=== PATIENT | female | born 1980 | race African-American/Black ===

== ENCOUNTER 2016-12-07 07:26 | Emergency (ER) | payer OTHER ==
[2016-12-07 07:46] VITALS: BP 124/83
--- NOTE | 2016-12-07 08:31 | UC ---
kelechi Ramsay Timothy, scribed for Mayra Noble MD on 12/07/16 at 0810 . FLU HPI - HPI Summary HPI Summary: Rodney Rodrigues is a 36 yo female presenting to [facility] with 7/10 burning sore throat, N/V/D, lightheadedness, SOB, subjective fever, and fatigue since 12/05/16 morning, lessening throughout the day, but worsening again 12/06 morning and again today. She states she also had onset of 6/10 myalgia 12/06/16. She states she also noticed "blisters on the back of her throat". Painful swallowing. No drooling. Pt did eat some breakfast. No analgesia today. + po today. None productive cough. Pt's daughter also a pt with a sore throat today. Rx to her for fibromyalgia. Her MHx includes discoid lupus of the scalp, migraine, sleep apnea, DM, fibromyalgia, bipolar disorder, depression, anxiety, tobacco use. Pt medication list reviewed this visit. - History of Current Complaint Stated Complaint: SORE THROAT VOMITING DIARRHEA Time Seen by Provider: 12/07/16 08:18 Hx Obtained From: Patient Hx Last Menstrual Period: 11/23/16 Onset/Duration: Sudden Onset, Lasting Days, Still Present Severity Currently: Moderate Severity Initially: Moderate Pain Intensity: 7 Pain Scale Used: 0-10 Numeric Associated Signs & Symptoms: Positive: Myalgia, Sore Throat, Vomiting, Diarrhea. Negative: Fever - Allergy/Home Medications Allergies/Adverse Reactions: Allergies Allergy/AdvReac Type Severity Reaction Status Date / Time No Known Allergies Allergy Verified 12/07/16 07:46 PMH/Surg Hx/FS Hx/Imm Hx Previously Healthy: No Neurological History: Migraine, Other - fibromyalgia Other Neurological History: fibromyalgia Psychological History: Anxiety, Depression, Bipolar Disorder - Surgical History Surgical History: Yes Surgery Procedure, Year, and Place: BREAST REDUCTION 2002, [facility]. GASTRIC BYPASS 2004, ". C SECTION 2011, [place]. C SECTION 2013 [facility] [place]. tonsilectomy. carpal tunnel surgery - Family History Known Family History: Positive: Hypertension, Diabetes - Social History Alcohol Use: Occasionally Alcohol Amount: FEW DRINKS/YEAR Substance Use Type: None Smoking Status (MU): Light Every Day Tobacco Smoker Type: Cigarettes Amount Used/How Often: 6-7 cig/day Have You Smoked in the Last Year: Yes Household Exposure Type: Cigarettes - Immunization History Most Recent Influenza Vaccination: decl Most Recent Tetanus Shot: 2014 Most Recent Pneumonia Vaccination: unkn Review of Systems Constitutional: Fever - subjective, Fatigue Skin: Negative Eyes: Negative ENT: Sore Throat, Other - congestion Respiratory: Shortness Of Breath Cardiovascular: Palpitations Gastrointestinal: Vomiting, Diarrhea Genitourinary: Negative Motor: Negative Neurovascular: Negative Musculoskeletal: Myalgia Neurological: Other - lightheadedness Psychological: Negative All Other Systems Reviewed And Are Negative: Yes Physical Exam Triage Information Reviewed: Yes Appearance: Well-Appearing, No Pain Distress, Well-Nourished Vital Signs: Initial Vital Signs Temp 97.6 F 12/07/16 07:32 Pulse 94 12/07/16 07:32 Resp 16 12/07/16 07:32 BP 124/83 12/07/16 07:32 Pulse Ox 100 12/07/16 07:32 Vital Signs Reviewed: Yes Eye Exam: Normal ENT: Positive: Hearing grossly normal, Pharyngeal erythema, Nasal congestion - turbinates inflammed, + PND, + diffuse erythema No exudate, no erythema. Negative: Pharynx normal, Nasal drainage, TM bulging, TM dull, Tonsillar exudate , Trismus Dental Exam: Normal Neck exam: Normal Neck: Positive: Supple, Nontender, No Lymphadenopathy. Negative: Nuchal Rigidity Respiratory Exam: Normal Respiratory: Positive: Chest non-tender, Lungs clear, Normal breath sounds, No respiratory distress Cardiovascular Exam: Normal Cardiovascular: Positive: RRR, No Murmur, Pulses Normal Abdominal Exam: Normal Abdomen Description: Positive: Nontender, No Organomegaly, Soft Bowel Sounds: Positive: Present Musculoskeletal Exam: Normal Musculoskeletal: Positive: Strength Intact Neurological Exam: Normal Neurological: Positive: Alert Psychological Exam: Normal Skin Exam: Normal Diagnostics - EKG Cardiac Rate: NL - 0747: NSR @ 85 BPM, no ST-T wave changes Re-Evaluation - Re-Evaluation First Eval Re-Evaluation Time: 08:29 Change: Unchanged Comment: Discussed lab results with Pt, as well as course of Tx. Flu Course/Dx - Course Course Of Treatment: Rodney Rodrigues is a 36 yo female presenting to [facility] with 7/10 burning sore throat, N/V/D, lightheadedness, SOB, subjective fever, and fatigue since 12/05/16, mylagia since 12/06/16. Pt well appearing with non concerning exam. Pt was counseled that she needed to stay hydrated, and might benefit from cold items with water such as popsicles or jello. Her Group A Rapid Strep test was positive. After clinical examination and review of her lab work, she will be discharged home with appropriate instructions and prescriptions. secretion precautions discussed - Differential Dx/Diagnosis Differential Diagnosis/HQI/PQRI: Other - strep throat Provider Diagnoses: strep throat Discharge - Discharge Plan Condition: Stable Disposition: HOME Prescriptions: Amoxicillin (*) [Amoxicillin 875 MG (*)] 875 mg PO BID #20 tab Patient Education Materials: Strep Throat (ED) Forms: *Work Release Referrals: Sara Munguia MD [Primary Care Provider] - 2 Days Additional Instructions: - Stay well hydrated. Drink plenty of non-alcoholic, non-caffinated beverages. - Gargle with warm, salt water 2-3 times a day - Cold beverages may be soothing to your throat - popsicles, apple sauce, jello - After you have been on antibiotics for 2 days - change your toothbrush and your pillowcase. These infections are spread by secretions - do NOT share eating or drinking utensils - clean items you share with other people such as cell phones, computer mouse, TV remote, computer tablets, etc - Alternate ibuprofen (Advil, Motrin) 600mg and Tylenol every 3 hours for pain or fever. Take with food. Do NOT take for more than 4-5 days. Please follow up with your primary care physician regarding your visit to urgent care today. Jello and/or popsicles may help to soothe your throat while still maintaining hydration. Return to urgent care or the emergency department with any new or recurring symptoms. The documentation as recorded by the kelechi fiore Timothy accurately reflects the service I personally performed and the decisions made by , Mayra Noble MD.
== END 2016-12-07 08:45 | disposition home or self-care (01) ==
LOC: UCEAST 07:26
DX: J02.0 Streptococcal pharyngitis (principal); F17.210 Nicotine dependence, cigarettes, uncomplicated
CPT/HCPCS: 87651; 93005; 99211; G0463

== ENCOUNTER 2017-02-18 16:51 | Emergency (ER) | payer OTHER ==
[2017-02-18 16:59] VITALS: BP 133/91
--- NOTE | 2017-02-18 18:36 | UC ---
Vanessa Ramsay Thomas, scribed for Alex Luke MD on 02/18/17 at 1722 . Dental HPI - HPI Summary HPI Summary: The pt is a 36 y/o F presenting to E c/o pain to the tip of her tongue that began two weeks ago. The pain is described as burning and is rated 4/10. The pain is aggravated by spicy and acidic food and the pain is alleviated by nothing. She also describes intermittent pus bubbles on her tongue. The patient has treated the pain with nothing prior to arrival. She saw her PCP for this complaint 10 days ago, and the workup was negative. Pt additionally c/o swelling to the tip of her tongue, abd pain characterized as bloatedness, and diarrhea (dark brown). Pt denies epigastric abd pain. She has treated her abd pain with Pepto Bismol prior to arrival. PMHx: fibromyalgia and bipolar disorder. PSHx: gastric bypass, , and tonsillectomy. SHx: smoker, rare alcohol use, and no illicit drug use. FHx: DM. She had Strep throat 6 weeks ago and she reports that she finished. - History of Current Complaint Chief Complaint: UCDentalProblem Stated Complaint: MOUTH COMPLAINT Time Seen by Provider: 02/18/17 17:12 Hx Obtained From: Patient, Family/Slip Cover Sewer - son and daughter in room Hx Last Menstrual Period: one month ago Onset/Duration: Lasting Weeks - 2, Still Present Pain Intensity: 4 Pain Scale Used: 0-10 Numeric Aggravating: Other - acidic and spicy food - Allergies/Home Medications Allergies/Adverse Reactions: Allergies Allergy/AdvReac Type Severity Reaction Status Date / Time No Known Allergies Allergy Verified 02/18/17 16:59 PMH/Surg Hx/FS Hx/Imm Hx Previously Healthy: No - fibromyalgia, bipolar disorder - Surgical History Surgical History: Yes Surgery Procedure, Year, and Place: BREAST REDUCTION 2002, [facility]. GASTRIC BYPASS 2003, ". C SECTION 2011, [place]. C SECTION [place] [facility] [place]. carpal tunnel surgery - Family History Known Family History: Positive: Hypertension, Diabetes - Social History Alcohol Use: Rare Alcohol Amount: FEW DRINKS/YEAR Substance Use Type: Prescribed Smoking Status (MU): Smoker, Current Status Unknown Type: Cigarettes Amount Used/How Often: 6-7 cig/day Have You Smoked in the Last Year: Yes Household Exposure Type: Cigarettes - Immunization History Most Recent Influenza Vaccination: decl Most Recent Tetanus Shot: 2014 Most Recent Pneumonia Vaccination: unkn Review of Systems Constitutional: Negative Skin: Negative Eyes: Negative ENT: Other - TONGUE PAIN Respiratory: Negative Cardiovascular: Negative Gastrointestinal: Other - DIFFUSE ABDOMINAL DISCOMFORT Genitourinary: Negative Motor: Negative Neurovascular: Negative Musculoskeletal: Negative Neurological: Negative Psychological: Negative All Other Systems Reviewed And Are Negative: Yes Physical Exam Triage Information Reviewed: Yes Vital Signs: Initial Vital Signs Temp 98.6 F 02/18/17 16:56 Pulse 93 02/18/17 16:56 Resp 18 02/18/17 16:56 BP 133/91 02/18/17 16:56 Pulse Ox 100 02/18/17 16:56 Vital Signs Reviewed: Yes - Additional Comments General: well-appearing, no pain distress Skin: warm, color reflects adequate perfusion, dry Head: normal Eyes: EOMI, MONICA ENT: normal Neck: supple, nontender Respiratory: CTA, breath sounds present Cardiovascular: RRR Abdomen: soft, nontender Bowel: present Musculoskeletal: normal, strength/ROM intact Neurological: normal, sensory/motor intact, A&O x3 Psychological: affect/mood appropriate Dental Complaint Course/Dx - Course Course Of Treatment: NO LESIONS NOTED IN THE MOUTH. PATIENT WONDERS IF SHE HAS THRUSH. POSSIBLE CAUSE OF MOUTH AND ABDOMINAL DISCOMFORT IS GERD. WILL TREAT FOR GERD AND THRUSH AND PATIENT WILL F/U WITH PMD AND POSSIBLE GI SHE HAD A GASTRIC BYPASS 10+ YEARS AGO. - Differential Dx/Diagnosis Provider Diagnoses: GENERALIZED, DIFFUSE ABDOMINAL DISCOMFORT, TONGUE PAIN. Discharge - Discharge Plan Condition: Stable Disposition: HOME Prescriptions: Magic Mouth Was-CAN/MAAL/LIDO* 5 ml SWISH SPIT QID PRN #140 ml PRN Reason: Pain Nystatin SUSPENSION* 500,000 units .SEE ORDER QID #140 ml Omeprazole CAP* [Prilosec CAP* 20 MG] 20 mg PO BID #30 cap. Patient Education Materials: Abdominal Pain (ED) Referrals: Sara Munguia MD [Primary Care Provider] - Additional Instructions: FOLLOW UP WITH YOUR DOCTOR FOR YOUR MOUTH AND ABDOMINAL DISCOMFORT. RETURN TO THE EMERGENCY DEPARTMENT FOR ANY WORSENING OF YOUR CONDITION; PAIN, FEVER, YOU FEEL ILL OR QUESTIONS OR CONCERNS. The documentation as recorded by the Vanessa fiore Thomas accurately reflects the service I personally performed and the decisions made by me, Alex Luke MD.
== END 2017-02-18 17:39 | disposition home or self-care (01) ==
LOC: UCEAST 16:51
DX: K14.6 Glossodynia (principal); R10.84 Generalized abdominal pain; M79.7 Fibromyalgia; F31.9 Bipolar disorder, unspecified; Z98.84 Bariatric surgery status; Z72.0 Tobacco use
CPT/HCPCS: 99212; G0463

== ENCOUNTER 2017-02-26 12:35 | Emergency (ER) | payer OTHER ==
[2017-02-26 12:50] VITALS: BP 129/83
--- NOTE | 2017-02-26 13:03 | UC ---
Ear Complaint HPI - HPI Summary HPI Summary: 36 Y/O female presents with C/O ear pain that woke her up from sleep last night. States pain was improved this morning but she did take a percocet and now is pain free. Denies fever, chills, congestion, cough or other upper respiratory symptoms. States is pain free at this time. - History of Current Complaint Chief Complaint: UCEar Stated Complaint: EAR PAIN Time Seen by Provider: 02/26/17 12:51 Hx Obtained From: Patient Hx Last Menstrual Period: end january 2017 ?: No Onset/Duration: Sudden Onset Severity Initially: Severe Severity Currently: None Pain Intensity: 0 Pain Scale Used: 0-10 Numeric Aggravating Factors: Nothing Alleviating Factors: Other (Noted In Comments) - Percocet Associated Signs/Symptoms: Negative: Discharge, Hearing Loss, Trauma to Ear, URI Symptoms - Allergies/Home Medications Allergies/Adverse Reactions: Allergies Allergy/AdvReac Type Severity Reaction Status Date / Time No Known Allergies Allergy Verified 02/18/17 16:59 PMH/Surg Hx/FS Hx/Imm Hx Previously Healthy: Yes - Surgical History Surgical History: Yes Surgery Procedure, Year, and Place: BREAST REDUCTION 2002, [facility]. GASTRIC BYPASS 2003, ". C SECTION 2011, [place]. C SECTION 2013 [facility]. tonsilectomy. carpal tunnel surgery - Family History Known Family History: Positive: Hypertension, Diabetes - Social History Alcohol Use: Occasionally Alcohol Amount: FEW DRINKS/YEAR Substance Use Type: None Smoking Status (MU): Former Smoker Type: Cigarettes Amount Used/How Often: 6-7 cig/day Have You Smoked in the Last Year: Yes Household Exposure Type: Cigarettes - Immunization History Most Recent Influenza Vaccination: decl Most Recent Tetanus Shot: 2013 Most Recent Pneumonia Vaccination: unkn Review of Systems Constitutional: Negative Skin: Negative Eyes: Negative ENT: Ear Ache Respiratory: Negative Cardiovascular: Negative Gastrointestinal: Negative Genitourinary: Negative Motor: Negative Neurovascular: Negative Musculoskeletal: Negative Neurological: Negative Psychological: Negative All Other Systems Reviewed And Are Negative: Yes Physical Exam Triage Information Reviewed: Yes Appearance: Well-Appearing Vital Signs: Initial Vital Signs Temp 98.3 F 02/26/17 12:46 Pulse 94 02/26/17 12:46 Resp 18 02/26/17 12:46 BP 129/83 02/26/17 12:46 Pulse Ox 99 02/26/17 12:46 Vital Signs Reviewed: Yes Eye Exam: Normal Eyes: Positive: Conjunctiva Clear ENT Exam: Normal ENT: Positive: Normal ENT inspection Neck exam: Normal Neck: Positive: Supple Respiratory Exam: Normal Respiratory: Positive: Lungs clear Cardiovascular Exam: Normal Cardiovascular: Positive: RRR Abdominal Exam: Normal Bowel Sounds: Positive: Present Musculoskeletal Exam: Normal Neurological Exam: Normal Psychological Exam: Normal Skin Exam: Normal Ear Complaint Course/Dx - Differential Dx/Diagnosis Differential Diagnosis/HQI/PQRI: Cerumen Impaction, Otitis Media Provider Diagnoses: Ear pain Discharge - Discharge Plan Condition: Stable Disposition: HOME Patient Education Materials: Earache (ED) Additional Instructions: Return to urgent care for return of ear pain that does not resolve with OTC medication or if you experience fever or chills with ear pain. May take decongestant if symptoms of cold (upper respiratory infection) return.
== END 2017-02-26 13:25 | disposition home or self-care (01) ==
LOC: UCEAST 12:35
DX: H92.09 Otalgia, unspecified ear (principal); Z87.891 Personal history of nicotine dependence; Z98.84 Bariatric surgery status
CPT/HCPCS: 99211; G0463

== ENCOUNTER 2017-04-06 09:56 | Emergency (ER) | payer OTHER ==
[2017-04-06] MEDS ORDERED: Ciprofloxacin TAB* 500 MG PO ONE (10:56)
[2017-04-06] MEDS ORDERED: metroNIDAZOLE TAB* 250 MG PO ONE (10:56)
[2017-04-06 11:11] LABS: Hematocrit 37 % (35-47); Hemoglobin 12.5 g/dl (12.0-16.0); Mean Corpuscular HGB Conc 34 g/dl (31-36); Mean Corpuscular Hemoglobin 33 pg (27-31); Mean Corpuscular Volume 98 fL (80-97); Mean Platelet Volume 7 um3 (7.4-10.4); Red Blood Count 3.75 10^6/ul (4.0-5.4); Red Cell Distribution Width 12 % (10.5-15); White Blood Count 3.8 10^3/ul (3.5-10.8)
[2017-04-06 11:29] LABS: ALT 86 U/L (7-52); Albumin 3.4 g/dL (3.2-5.2); Alkaline Phosphatase 116 U/L (34-104); BUN/Creatinine Ratio 21.8 (8-20); Blood Urea Nitrogen 12 mg/dL (6-24); C Reactive Protein < 1.00 mg/L (< 5.00); CO2 Carbon Dioxide 25 mmol/L (22-32); Calcium 8.9 mg/dL (8.6-10.3); Chloride 102 mmol/L (101-111); EGFR African American 159.1 (>60); EGFR Non-African American 123.7 (>60); Globulin 3.2 g/dL (2-4); Glucose 88 mg/dL (70-100); Lipase 43 U/L (11.0-82.0); Sodium 136 mmol/L (133-145); Total Protein 6.6 g/dL (6.4-8.9)
[2017-04-06 12:29] LABS: AST 294 U/L (13-39); Anion Gap 9 mmol/L (2-11); Potassium 3.9 mmol/L (3.5-5.0)
[2017-04-06 12:41] LABS: Urine Bilirubin Negative (Negative); Urine Glucose Negative (Negative); Urine Nitrite Negative (Negative)
[2017-04-06 13:50] VITALS: BP 143/72
--- NOTE | 2017-04-07 08:03 | PN ---
Progress Note - Progress Note Date of Service: 04/06/17 Note: Stool culture sent Positive for C. Diff Patient placed on Cipro and Flagyl prior to discharge This treatment is appropriate for this organism Patient called to make aware to begin contact precautions, etc. She has a follow up today with her PCP at 3pm. Nothing further at this time. Licha Jackman PA-C
--- NOTE | 2017-04-08 12:11 | ED ---
Willa Ramsay Nilda, scribed for Zane Shirley MD on 04/06/17 at 1058 . GI/ HPI - HPI Summary HPI Summary: This patient is a 36 year old F presenting to [facility] accompanied by sister with a chief complaint of bloody diarrhea (bright red) since last night. The patient rates the pain 0/10 in severity. Symptoms aggravated and alleviated by nothing. Patient reports abdominal pain and anal pain. Patient denies vomiting, fever, chills, dizziness, lightheadedness, recent travel, recent undercooked foods, and recent antibiotics. PSHx gastric bypass. PMHx includes fibromyalgia, bipolar disorder, and lupus (scalp). - History of Current Complaint Chief Complaint: EDAbdPain Time Seen by Provider: 04/06/17 10:37 Stated Complaint: BLOOD CLOTS IN STOOL Hx Obtained From: Patient Hx Last Menstrual Period: end january 2017 Onset/Duration: Started Days Ago Timing: Constant Severity: Moderate Current Severity: None Pain Intensity: 0 Location of Pain: Diffuse Associated Signs and Symptoms: Positive: Blood w/Stool, Other: - abdominal pain and anal pain. Patient denies vomiting, fever, chills, dizziness, lightheadedness, recent travel, recent undercooked foods, and recent antibiotics. Aggravating Factor(s): Nothing Alleviating Factor(s): Nothing - Allergy/Home Medications Allergies/Adverse Reactions: Allergies Allergy/AdvReac Type Severity Reaction Status Date / Time No Known Allergies Allergy Verified 04/06/17 10:29 PMH/Surg Hx/FS Hx/Imm Hx Endocrine/Hematology History: Reports: Hx Diabetes Denies: Hx Thyroid Disease Cardiovascular History: Denies: Hx Hypertension, Hx Pacemaker/ICD Respiratory History: Reports: Hx Sleep Apnea - IN PAST, Musculoskeletal History: Reports: Hx Fibromyalgia Sensory History: Reports: Hx Contacts or Glasses - GLASSES Denies: Hx Hearing Aid Opthamlomology History: Reports: Hx Contacts or Glasses - GLASSES Neurological History: Reports: Hx Migraine - FEWxMONTH, USES OTC MEDS Psychiatric History: Reports: Hx Anxiety, Hx Depression - ON MED, Hx Bipolar Disorder - manages with limotrigine, Other Psychiatric Issues/Disorders Denies: Hx Panic Disorder - Surgical History Surgery Procedure, Year, and Place: BREAST REDUCTION 2002, [facility]. GASTRIC BYPASS 2003, ". C SECTION 2011, [place]. C SECTION [place] [facility] [place]. carpal tunnel surgery Hx Anesthesia Reactions: No Infectious Disease History: Yes Infectious Disease History: Denies: Hx Clostridium Difficile, Hx Hepatitis, Hx Human Immunodeficiency Virus (HIV), Hx of Known/Suspected MRSA, Hx Shingles, Hx Tuberculosis, Hx Known/ Suspected VRE, Hx Known/Suspected VRSA, History Other Infectious Disease, Traveled Outside the [place] in Last 30 Days - Family History Known Family History: Positive: Hypertension, Diabetes - Social History Alcohol Use: Weekly Alcohol Amount: 2 glasses of wine few days a week Substance Use Type: Reports: None Smoking Status (MU): Former Smoker Type: Cigarettes Amount Used/How Often: 6-7 cig/day Have You Smoked in the Last Year: Yes Review of Systems Negative: Fever, Chills Negative: Sore Throat Positive: Abdominal Pain, Diarrhea - bloody. Negative: Vomiting, Nausea Negative: dysuria, hematuria Negative: Myalgia, Edema Negative: Rash Neurological: Other - negative dizziness and lightheadedness All Other Systems Reviewed And Are Negative: Yes Physical Exam - Summary Physical Exam Summary: Constitutional: Well-developed, Well-nourished, Alert. (-) Distressed Skin: Warm, Dry HENT: Normocephalic; Atraumatic Eyes: Conjunctiva normal Neck: Musculoskeletal ROM normal neck. (-) JVD, (-) Stridor, (-) Tracheal deviation Cardio: Rhythm regular, rate normal, Heart sounds normal; Intact distal pulses; The pedal pulses are 2+ and symmetric. Radial pulses are 2+ and symmetric. (-) Murmur Pulmonary/Chest wall: Effort normal. (-) Respiratory distress, (-) Wheezes, (-) Rales Abd: Soft, Mild RLQ and LLQ tenderness, (-) Distension, (-) Guarding, (-) Rebound Musculoskeletal: (-) Edema Lymph: (-) Cervical adenopathy Neuro: Alert, Oriented x3 Psych: Mood and affect Normal Triage Information Reviewed: Yes Vital Signs On Initial Exam: Initial Vitals Temp Pulse Resp BP Pulse Ox 98.3 F 104 20 160/71 100 04/06/17 10:00 04/06/17 10:00 04/06/17 10:00 04/06/17 10:04/06/17 10:00 Vital Signs Reviewed: Yes Diagnostics - Vital Signs Vital Signs Temp Pulse Resp BP Pulse Ox 04/06/17 10:30 96 132/86 99 04/06/17 10:29 99 99 04/06/17 10:26 124/85 04/06/17 10:00 98.3 F 104 20 160/71 100 - Laboratory Result Diagrams: 04/06/17 10:55 04/06/17 10:55 Lab Statement: Any lab studies that have been ordered have been reviewed, and results considered in the medical decision making process. GIGU Course/Dx - Course Course Of Treatment: This patient is a 36 year old F presenting to [facility] accompanied by sister with a chief complaint of bloody diarrhea (bright red) since last night. The patient rates the pain 0/10 in severity. Symptoms aggravated and alleviated by nothing. Patient reports abdominal pain and anal pain. Patient denies vomiting, fever, chills, dizziness, lightheadedness. She also denies recent travel, recent undercooked foods, and recent antibiotics. PSHx gastric bypass. PMHx includes fibromyalgia, bipolar disorder, and lupus ( scalp). No evidence of significant blood loss. Stool cultures are pending. Patient will be discharged with a diagnosis of infectious diarrhea and prescriptions for Cipro, Metronidazole, and Zinc Oxide. Patient advised to follow up with PCP in 2-3 days. The patient is agreeable with this plan. - Diagnoses Provider Diagnoses: Infectious diarrhea Discharge - Discharge Plan Condition: Stable Disposition: HOME Prescriptions: Ciprofloxacin TAB* [Cipro 500 MG TAB*] 500 mg PO BID #20 tab Metronidazole [Flagyl 500 MG TAB] 500 mg PO TID #30 tab Zinc Oxide 16% PASTE* [Marii's Butt paste] 1 applic TOPICAL TID #1 tube Patient Education Materials: Acute Diarrhea (ED) Referrals: Sara Munguia MD [Primary Care Provider] - 3 Days Additional Instructions: RETURN TO THE EMERGENCY DEPARTMENT FOR CHANGING OR WORSENING SYMPTOMS. The documentation as recorded by the Willa fiore Nilda accurately reflects the service I personally performed and the decisions made by , Zane Shirley MD.
== END 2017-04-06 13:48 | disposition home or self-care (01) ==
LOC: ED 09:56
DX: A04.72 Enterocolitis due to Clostridium difficile, not specified as recurrent (principal); M79.7 Fibromyalgia; F31.9 Bipolar disorder, unspecified; M32.9 Systemic lupus erythematosus, unspecified
CPT/HCPCS: 36415; 80053; 81003; 83605; 83690; 85025; 86140; 87045; 87046; 87077; 87177; 87209; 87328; 87329; 87493; 87899; 99283; A9270-GY

== ENCOUNTER 2017-05-24 11:49 | Emergency (ER) | payer OTHER ==
[2017-05-24] MEDS ORDERED: NS 0.9% 1000 ML* 2,000 ML IV ONE (12:53)
[2017-05-24 13:48] LABS: Hematocrit 34 % (35-47); Hemoglobin 11.6 g/dl (12.0-16.0); Mean Corpuscular HGB Conc 34 g/dl (31-36); Mean Corpuscular Hemoglobin 33 pg (27-31); Mean Corpuscular Volume 97 fL (80-97); Mean Platelet Volume 7 um3 (7.4-10.4); Red Cell Distribution Width 13 % (10.5-15)
[2017-05-24 13:50] LABS: Comments Flag Yes
[2017-05-24 13:51] LABS: White Blood Count 3.4 10^3/ul (3.5-10.8)
[2017-05-24 14:01] LABS: ALT 174 U/L (7-52); AST 491 U/L (13-39); Albumin 3.1 g/dL (3.2-5.2); Alkaline Phosphatase 154 U/L (34-104); Anion Gap 9 mmol/L (2-11); BUN/Creatinine Ratio 21.4 (8-20); Blood Urea Nitrogen 12 mg/dL (6-24); C Reactive Protein < 1.00 mg/L (< 5.00); CO2 Carbon Dioxide 23 mmol/L (22-32); Calcium 8.5 mg/dL (8.6-10.3); Chloride 101 mmol/L (101-111); EGFR African American 155.8 (>60); EGFR Non-African American 121.2 (>60); Globulin 2.8 g/dL (2-4); Glucose 80 mg/dL (70-100); Lipase 28 U/L (11.0-82.0); Potassium 3.8 mmol/L (3.5-5.0); Sodium 133 mmol/L (133-145); Total Protein 5.9 g/dL (6.4-8.9)
[2017-05-24 14:28] LABS: Urine Bilirubin Negative (Negative); Urine Glucose Negative (Negative); Urine Nitrite Negative (Negative)
[2017-05-24 16:09] VITALS: BP 132/86
--- NOTE | 2017-05-25 22:11 | ED ---
Erinn Ramsay Alfonso, scribed for Zane Shirley MD on 05/24/17 at 1250 . Dizziness - HPI Summary HPI Summary: This patient is a 36 year old F BIBA to [facility] with a chief complaint of lightheaded dizziness since earlier today. The patient rates the pain 0/10 in severity. Symptoms aggravated and alleviated by nothing. Patient reports dehydration, abdominal cramping during BMs, diarrhea with mucous (2-3 days), fatigue, and near syncope (at [employer] earlier today). Patient denies vomiting, melena, and blood in the stools. She denies recent travels, eating raw foods, and sick contacts. She was seen at [facility] at 04/06/17 with a provider diagnosis of infectious diarrhea and a stool culture positive for C. Diff. - History Of Current Complaint Chief Complaint: EDDizziness Stated Complaint: DIZZY Time Seen by Provider: 05/24/17 12:42 Hx Obtained From: Patient Onset/Duration: Still Present Timing: Constant Character: Lightheaded Aggravating Factor(s): Nothing Alleviating Factor(s): Nothing Associated Signs And Symptoms: Positive: Other: - dehydration, abdominal cramping during BMs, diarrhea with mucous (2-3 days), fatigue, and near syncope (at [employer] earlier today). Patient denies vomiting, melena, and blood in the stools. She denies recent travels, eating raw foods, and sick contacts. - Allergies/Home Medications Allergies/Adverse Reactions: Allergies Allergy/AdvReac Type Severity Reaction Status Date / Time No Known Allergies Allergy Verified 04/06/17 10:29 PMH/Surg Hx/FS Hx/Imm Hx Endocrine/Hematology History: Reports: Hx Diabetes Denies: Hx Thyroid Disease Cardiovascular History: Denies: Hx Hypertension, Hx Pacemaker/ICD Respiratory History: Reports: Hx Sleep Apnea - IN PAST, Musculoskeletal History: Reports: Hx Fibromyalgia Sensory History: Reports: Hx Contacts or Glasses - GLASSES Denies: Hx Hearing Aid Opthamlomology History: Reports: Hx Contacts or Glasses - GLASSES EENT History: Denies: Hx Deafness Neurological History: Reports: Hx Migraine - FEWxMONTH, USES OTC MEDS Psychiatric History: Reports: Hx Anxiety, Hx Depression - ON MED, Hx Bipolar Disorder - manages with limotrigine, Other Psychiatric Issues/Disorders Denies: Hx Panic Disorder - Surgical History Surgery Procedure, Year, and Place: BREAST REDUCTION 2002, [facility]. GASTRIC BYPASS 2003, ". C SECTION 2012, [place]. C SECTION 2013 [facility] [place]. tonsilectomy. carpal tunnel surgery Hx Anesthesia Reactions: No Infectious Disease History: Yes Infectious Disease History: Reports: Hx Clostridium Difficile Denies: Hx Hepatitis, Hx Human Immunodeficiency Virus (HIV), Hx of Known/ Suspected MRSA, Hx Shingles, Hx Tuberculosis, Hx Known/Suspected VRE, Hx Known/ Suspected VRSA, History Other Infectious Disease, Traveled Outside the [place] in Last 30 Days - Family History Known Family History: Positive: Hypertension, Diabetes - Social History Alcohol Use: Weekly Alcohol Amount: 2 glasses of wine few days a week Hx Substance Use: No Substance Use Type: Reports: None Hx Tobacco Use: Yes Smoking Status (MU): Former Smoker Type: Cigarettes Amount Used/How Often: 6-7 cig/day Have You Smoked in the Last Year: Yes Review of Systems Positive: Fatigue, Other - dehydration. Negative: Fever, Chills Negative: Erythema Negative: Sore Throat Negative: Chest Pain Negative: Shortness Of Breath, Cough Positive: Abdominal Pain - cramping with BMs, Diarrhea, Other - Negative melena , blood in the stools. Negative: Vomiting, Nausea Negative: dysuria, hematuria Negative: Myalgia, Edema Negative: Rash Neurological: Other - lightheaded dizziness Positive: Syncope - near All Other Systems Reviewed And Are Negative: Yes Physical Exam - Summary Physical Exam Summary: Constitutional: Well-developed, Well-nourished, Alert. (-) Distressed Skin: Warm, Dry HENT: Normocephalic; Atraumatic Eyes: Conjunctiva normal Neck: Musculoskeletal ROM normal neck. (-) JVD, (-) Stridor, (-) Tracheal deviation Cardio: Rhythm regular, rate normal, Heart sounds normal; Intact distal pulses; The pedal pulses are 2+ and symmetric. Radial pulses are 2+ and symmetric. (-) Murmur Pulmonary/Chest wall: Effort normal. (-) Respiratory distress, (-) Wheezes, (-) Rales Abd: Soft, (-) Tenderness, (-) Distension, (-) Guarding, (-) Rebound Musculoskeletal: (-) Edema Lymph: (-) Cervical adenopathy Neuro: Alert, Oriented x3 Psych: Mood and affect Normal Triage Information Reviewed: Yes Vital Signs On Initial Exam: Initial Vitals Temp Pulse Resp BP Pulse Ox 98.4 F 105 16 105/71 99 05/24/17 11:51 05/24/17 11:51 05/24/17 11:51 05/24/17 11:51 05/24/17 11:51 Vital Signs Reviewed: Yes Diagnostics - Vital Signs Vital Signs Temp Pulse Resp BP Pulse Ox 05/24/17 11:51 98.4 F 105 16 105/71 99 - Laboratory Result Diagrams: 05/24/17 13:40 05/24/17 13:40 Lab Statement: Any lab studies that have been ordered have been reviewed, and results considered in the medical decision making process. - EKG 1426 Cardiac Rate: NL EKG Rhythm: Sinus Rhythm - 91 BPM EKG Interpretation: No STEMI Re-Evaluation - Re-Evaluation First Eval Re-Evaluation Time: 15:06 Comment: Still feels lightheaded. She is receiving IV fluids. She will produce a stool sample. Second Eval Re-Evaluation Time: 15:58 Change: Improved Comment: Better after IV fluids. Dizziness resolved. She is tolerating PO. Dizzy Course/Dx - Course Assessment/Plan: This patient is a 36 year old F BIBA to [facility] with a chief complaint of lightheaded dizziness since earlier today. The patient rates the pain 0/10 in severity. Symptoms aggravated and alleviated by nothing. Patient reports dehydration, abdominal cramping during BMs, diarrhea with mucous (2-3 days), fatigue, and near syncope (at [employer] earlier today). Patient denies vomiting, melena, and blood in the stools. She denies recent travels, eating raw foods, and sick contacts. She was seen at [facility] at 04/06/17 with a provider diagnosis of infectious diarrhea and a stool culture positive for C. Diff. An EKG reveals Sinus Rhythm. In the ED course the patient was given IV fluids. Patients symptoms improved in the ED course. Stool cultures pending. Patient will be discharged with follow up from PCP. The patient is agreeable with this plan. - Diagnoses Provider Diagnoses: Dehydration, Diarrhea Discharge - Discharge Plan Condition: Stable Disposition: HOME Patient Education Materials: Dehydration (ED), Acute Diarrhea (ED) Forms: *Work Release Referrals: Sara Munguia MD [Primary Care Provider] - 3 Days Additional Instructions: RETURN TO THE EMERGENCY DEPARTMENT FOR CHANGING OR WORSENING SYMPTOMS. The documentation as recorded by the Erinn fiore Alfonso accurately reflects the service I personally performed and the decisions made by me, Zane Shirley MD.
--- NOTE | 2017-05-26 09:06 | PN ---
Progress Note - Progress Note Date of Service: 05/24/17 Note: stool culture results are negative for shiga and c diff. no further action required at this time.
== END 2017-05-24 16:21 | disposition home or self-care (01) ==
LOC: ED 11:49
DX: E86.0 Dehydration (principal); R19.7 Diarrhea, unspecified; Z87.891 Personal history of nicotine dependence
CPT/HCPCS: 36415; 80053; 81003; 83605; 83690; 85025; 86140; 87045; 87046; 87077; 87493; 87899; 93005; 96360; 99284

== ENCOUNTER 2017-07-18 08:03 | Emergency (ER) | payer OTHER ==
[2017-07-18 08:10] VITALS: BP 153/92
--- OUTSIDE RECORDS SUMMARY | 2017-07-18 08:14 | XMS REPORT ---
:1980 External Reference #:[id number] Author Organization [facility] Address [address] [place] [address] Phone [phone] Care Team Providers Name Role Phone Sara Munguia M.D. 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 Primary Care Physician Unavailable Payers Type Date Identification Numbers Payment Provider Subscriber Medicaid Effective: Policy Number: [id number] [facility] Jemima Torres 2013 Ravi PayID: [id number] [address] [address] [place] [address] Problems Date Description Provider Status Onset: 07/23/2014 Bipolar disorder Sara Munguia M.D. Active Onset: 07/23/2014 Shoulder joint pain Sara Munguia M.D. Active Onset: 07/23/2014 Cutaneous lupus erythematosus Sara Munguia M.D. Active Onset: 08/27/2014 Primary fibromyalgia syndrome Sara Munguia M.D. Active Onset: 03/04/2016 Myofascial pain Sara Munguia M.D. Active Note: left shoulder/back Onset: 05/24/2017 Liver enzymes abnormal Sara Munguia M.D. Active Onset: 08/29/2014 Tobacco user Sara Munguia M.D. Resolved Resolved: 07/15/2015 Family History Date Family Member(s) Problem(s) Comments Father Diabetes Mellitus, II : (2005) Father due to Liver Disease cirrhosis; alcoholic Father Hypertension Father Hypercholesterolemia Father Alcoholism Mother Gastroesophageal Reflux Disease (GERD) Mother Bipolar Disorder Mother Arthritis First Sister Bipolar Disorder Social History Type Date Description Comments Education Highest level completed, Bachelor's Degree Occupation [employer] Cigarette Use Former Cigarette Smoker 1 Pack Daily ETOH Use Consumes 2 glasses of wine per day Smoking Patient is a former smoker Allergies, Adverse Reactions, Alerts Date Description Reaction Status Severity Comments 09/28/2016 Sertraline active panic attacks 07/23/2014 NKDA inactive Medications Medication Date Status Form Strength Qnty SIG Indications Ordering Provider Clobetasol 05/30/ Active Lotion 0.05% 118ml apply to Sara Reyes 2016 scalp twice , a day as M.D. needed Oxycodone HCL 05/24/ Active Tablets 5mg 120ta 1 tab by M25.512 Sara 2017 bs mouth q6 Blaine, hours as M.D. needed Metronidazole 06/22/ Hx Tablets 500mg 42tab 1 tab by Sara 2016 - s mouth three , 07/14/ times a day M.D. 2018 x 14 days Metronidazole 04/14/ Hx Tablets 500mg 12tab Take one by A04.72 Laine Lamas 2016 - s mouth 3 Babak, 04/21/ times per [employer] MANAGER 2016 day until gone Lamotrigine 11/09/ Hx Tablets 200mg 30tab 1 tab daily F31.9 Sarah 2016 - s [facility], 07/14/ Afnp-C 2017 Venlafaxine HCL 09/28/ Hx Caps ER 75mg 30cap take one F31.9 Sara ER 2017 - 24HR s capsule by Blaine, 11/09/ mouth at M.D. 2017 bedtime Doxycycline 08/12/ Hx Tablets 100mg 14tab 1 tab twice Z20.2 Sara Hyclate 2016 - s a day x 7 , 09/28/ days M.D. 2017 Physical 08/12/ Hx treatment M79.7 Sara Therapy 2017 - and Blaine, 09/28/ evaluation M.D. 2017 low back pain Nicotine Step 2 08/12/ Hx Patches 14mg/24HR 30uni 1 patch F17.210 Sara 2017 - 24HR ts daily, Blaine, 04/06/ remove prior M.D. 2016 patch and replace Sertraline HCL 08/12/ Hx Tablets 50mg 30tab 1 by mouth F31.9 Sara 2017 - s every day , 09/28/ M.D. 2017 Oxycodone-Aceta 07/01/ Hx Tablets 5-325mg 120ta 1 tab by M25.512 Sara minophen 2015 - bs mouth every , 05/24/ 6 hour as M.D. 2017 needed Lamotrigine 07/01/ Hx Tablets 200mg 30tab 1 tab daily F31.9 Sara 2016 - s Blaine, 09/28/ M.D. 2017 Physical 06/22/ Hx treatment M25.512 Sara Therapy 2015 - and Blaine, 06/24/ evaluation M.D. 2016 left shoulder pain Lamotrigine 03/04/ Hx Tablets 200mg 30tab 1 tab daily F31.9 Sara 2016 - s Blaine, 06/24/ M.D. 2016 Physical 11/03/ Hx treatment M25.512 Sara Therapy 2016 - and Blaine, 06/22/ evaluation M.D. 2016 low back pain and Left shoulder pain Bupropion HCL 11/03/ Hx Tablets 150mg 30tab 1 by mouth F31.9 Jil ER (XL) 2015 - ER 24HR s every day [facility] 2015 Lamotrigine 03/17/ Hx Tablets 100mg 30tab 1 tab by F31.9 Jil 2014 - s mouth every [facility], 03/04/ day MANAGER JAVA 2015 Chantix 02/13/ Hx Tablets 1mg 60tab take 1 Sara Continuing 2014 - tablet by Blaine, Month Tevin 07/15/ mouth twice M.D. 2016 a day Chantix 01/14/ Hx Tablets 0.5mg X 1tabs 1 starter F17.200 Sara Starting Month 2014 & pack for a BlaineTevin 08/13/ 1 mg X 42 month,then M.D. 2017 refill maintenance packs Bupropion HCL 08/29/ Hx Tablets 150mg 30tab 1 by mouth 305.1 Sara ER (XL) 2014 - ER 24HR s every day Blaine, 01/14/ M.D. 2014 296.80 Oxycodone-Acetaminophen 07/23/2014 Hx Tablets 5-325mg 120tabs 1 tab M25.512 Sara - by Blaine, 2016 mouth M.D. every 6 hour as needed Ibuprofen 07/23/2014 Hx Tablets 800mg 90tabs 1 by M25.512 Sara - mouth Blaine, 2016 q8 M.D. hours three times a day with food Lamotrigine 07/23/2014 Hx Tablets 100mg 30tabs 1 tab 296.80 Sara - by Blaine, 01/14/2015 mouth M.D. every day Metformin HCL ER Hx Tablets 750mg 90tabs 1 po qd Unknown - ER 24HR 07/24/2014 Clobetasol Propionate Hx Lotion 0.05% 118ml apply Sara - to , 2016 scalp M.D. twice a day as needed Implanon Hx Implant 68mg Unknown - 2016 Ciprofloxacin HCL Hx Tablets 500mg 1 by Unknown - mouth 04/14/2017 twice a day Metronidazole Hx Tablets 500mg 1 tab Unknown - by 04/21/2017 mouth tHREE Times a day Medications Administered in Office Medication Date Status Form Strength Qnty SIG Indications Ordering Provider TB Intradermal Administered Injection Sara Morataya 017 Jesus Munguia TB Intradermal Administered Injection Sara Morataya 016 Jesus Munguia Immunizations CPT Code Status Date Vaccine Lot # [id number] Given 03/17/2015 Influenza Vac, Quadrivalent, Slit Virus, Im [id number] Vital Signs Date Vital Result Comment 07/14/2017 BP Systolic 122 mmHg BP Diastolic 80 mmHg Heart Rate 84 /min Body Temperature 97.3 F Respiratory Rate 16 /min Height 63 inches 5'3" Weight 155.00 lb BMI (Body Mass Index) 27.5 kg/m2 06/21/2017 BP Systolic 120 mmHg BP Diastolic 80 mmHg Heart Rate 68 /min Body Temperature 98.0 F Respiratory Rate 18 /min Height 63 inches 5'3" Weight 157.00 lb BMI (Body Mass Index) 27.8 kg/m2 06/08/2017 BP Systolic 138 mmHg BP Diastolic 70 mmHg Heart Rate 90 /min Body Temperature 99.0 F Height 63 inches 5'3" Weight 157.00 lb BMI (Body Mass Index) 27.8 kg/m2 04/21/2017 BP Systolic 120 mmHg BP Diastolic 80 mmHg Heart Rate 80 /min Body Temperature 98.5 F Respiratory Rate 16 /min Height 63 inches 5'3" Weight 156.38 lb BMI (Body Mass Index) 27.7 kg/m2 04/14/2017 BP Systolic 124 mmHg BP Diastolic 76 mmHg Heart Rate 84 /min Body Temperature 97.9 F Respiratory Rate 16 /min Height 63 inches 5'3" Weight 156.38 lb BMI (Body Mass Index) 27.7 kg/m2 04/07/2017 BP Systolic 116 mmHg BP Diastolic 58 mmHg Heart Rate 90 /min Body Temperature 97.3 F Height 63 inches 5'3" Weight 156.38 lb BMI (Body Mass Index) 27.7 kg/m2 02/10/2017 BP Systolic 132 mmHg BP Diastolic 82 mmHg Heart Rate 92 /min Body Temperature 98.3 F Height 63 inches 5'3" Weight 154.00 lb BMI (Body Mass Index) 27.3 kg/m2 11/09/2016 BP Systolic 136 mmHg BP Diastolic 80 mmHg Heart Rate 88 /min Body Temperature 97.5 F Respiratory Rate 16 /min Height 63 inches 5'3" Weight 152.00 lb BMI (Body Mass Index) 26.9 kg/m2 09/28/2016 BP Systolic 140 mmHg BP Diastolic 84 mmHg Heart Rate 84 /min Body Temperature 97.3 F Respiratory Rate 16 /min Height 63 inches 5'3" Weight 148.00 lb BMI (Body Mass Index) 26.2 kg/m2 08/12/2016 BP Systolic 150 mmHg BP Diastolic 80 mmHg Heart Rate 104 /min Body Temperature 98.6 F Height 63 inches 5'3" Weight 149.50 lb BMI (Body Mass Index) 26.5 kg/m2 06/22/2016 BP Systolic 130 mmHg BP Diastolic 70 mmHg Heart Rate 84 /min Body Temperature 96.8 F Height 63 inches 5'3" Weight 150.00 lb BMI (Body Mass Index) 26.6 kg/m2 03/04/2016 BP Systolic 130 mmHg BP Diastolic 90 mmHg Heart Rate 84 /min Body Temperature 98.1 F Respiratory Rate 16 /min Height 63 inches 5'3" Weight 160.38 lb BMI (Body Mass Index) 28.4 kg/m2 11/04/2015 BP Systolic 122 mmHg BP Diastolic 68 mmHg Heart Rate 68 /min Body Temperature 97.7 F Respiratory Rate 16 /min Height 63 inches 5'3" Weight 162.50 lb BMI (Body Mass Index) 28.8 kg/m2 07/15/2015 BP Systolic 120 mmHg BP Diastolic 80 mmHg Heart Rate 80 /min Body Temperature 97.5 F Respiratory Rate 16 /min Height 63 inches 5'3" Weight 162.00 lb BMI (Body Mass Index) 28.7 kg/m2 03/17/2015 BP Systolic 124 mmHg BP Diastolic 80 mmHg Heart Rate 74 /min Body Temperature 98.0 F Respiratory Rate 20 /min Height 63 inches 5'3" Weight 160.00 lb BMI (Body Mass Index) 28.3 kg/m2 01/14/2015 BP Systolic 140 mmHg BP Diastolic 80 mmHg Heart Rate 88 /min Body Temperature 98.0 F Respiratory Rate 16 /min Height 63 inches 5'3" Weight 158.00 lb BMI (Body Mass Index) 28.0 kg/m2 08/29/2014 BP Systolic 126 mmHg BP Diastolic 88 mmHg Heart Rate 80 /min Body Temperature 97.4 F Respiratory Rate 16 /min Height 63 inches 5'3" Weight 152.00 lb BMI (Body Mass Index) 26.9 kg/m2 07/23/2014 BP Systolic 130 mmHg BP Diastolic 90 mmHg Heart Rate 88 /min Body Temperature 98.3 F Respiratory Rate 16 /min Height 63 inches 5'3" Weight 152.00 lb BMI (Body Mass Index) 26.9 kg/m2 Results Test Date Test Result H/L Range Note Comprehensive Metabolic Prof 06/21/2017 Sodium 135 mEq/L 134-149 Potassium 3.9 mEq/L 3.6-5.5 Chloride 103 mEq/L 94-112 Carbon Dioxide 24 mEq/L 21-32 Glucose 89 mg/dL 70-105 BUN 11 mg/dL 6-26 Creatinine 0.6 mg/dL 0.6-1.4 BUN/Creat Ratio 18.3 CALC 8.0-36.0 Calcium 8.9 mg/dL 8.6-10.2 Total Protein 5.9 g/dL Low 6.4-8.3 1 Albumin 3.4 g/dL Low 3.8-5.5 2 Globulin 2.5 g/dL 2.0-4.8 A/G Ratio 1.4 CALC 0.6-2.3 Alk. Phosphatase 147 U/L High 30-110 Alt (SGPT) 237 U/L High 7-35 Ast (Sgot) 443 U/L High 5-34 Total Bilirubin 0.9 mg/dL 0.2-1.3 GFR Non- >60 ml/min/1.73m^ >=60 GFR >60 ml/min/1.73m^ >=60 Laboratory test finding 06/21/2017 TSH 1.10 mIU/L 0.50-6.00 Free T4 0.76 ng/dL 0.75-1.54 CBC Electronic (Fma) 06/21/2017 WBC 3.9 3.6-9.6 RBC 3.34 Low 3.90-5.70 Hemoglobin (Fma/CMC/CTX) 11.5 g/dL Low 12.1 - 17.2 Hematocrit (Fma/CMC/CTX) 32.8 % Low 36.1 - 50.3 Platelets 314 10^3/ul 150-400 Lymph% 38.8 % 17.0-48.0 Mixed% 7.1 Neutrophils % 54.1 Mean Corpuscular Vol 98 High 82.2-97.4 Mean Corpuscular Hemoglobin 34.4 High 27.6-33.3 Mean Corpuscular Hemo Concen 34.9 32.0-36.0 RDW 14.1 High 11.6-13.7 Mean Platelet Volume 6.8 5.5-11.0 Laboratory test finding 06/21/2017 C Difficile PCR SEE RESULT BELOW 3 Stool Culture <pending> Comprehensive Metabolic Prof 06/08/2017 Sodium 141 mEq/L 134-149 Potassium 3.9 mEq/L 3.6-5.5 Chloride 110 mEq/L 94-112 Carbon Dioxide 25 mEq/L 21-32 Glucose 88 mg/dL 70-105 BUN 11 mg/dL 6-26 Creatinine 0.6 mg/dL 0.6-1.4 BUN/Creat Ratio 18.3 CALC 8.0-36.0 Calcium 8.7 mg/dL 8.6-10.2 Total Protein 6.5 g/dL 6.4-8.3 Albumin 3.8 g/dL 3.8-5.5 Globulin 2.7 g/dL 2.0-4.8 A/G Ratio 1.4 CALC 0.6-2.3 Alk. Phosphatase 171 U/L High 30-110 4 Alt (SGPT) 90 U/L High 7-35 5 Ast (Sgot) 132 U/L High 5-34 6 Total Bilirubin 1.0 mg/dL 0.2-1.3 GFR Non- >60 ml/min/1.73m^ >=60 GFR >60 ml/min/1.73m^ >=60 Ebv Acute Infection 06/08/2017 Ebv Ab Vca, IgM <36.0 U/mL 0.0-35.9 7 , 8 Antibodies Profile Ebv Early Antigen Ab, IgG 13.2 U/mL High 0.0-8.9 7, 9 Ebv Ab Vca, IgG >600.0 U/mL High 0.0-17.9 7, 10 Ebv Nuclear Antigen Ab, IgG 470.0 U/mL High 0.0-17.9 7, 11 Interpretation: See Comment: 7, 12 Hepatitis Panel, Acute 06/08/2017 Hep A Ab, IgM Negative Negative 7 HBsAg Screen Negative Negative 7 Hep B Core Ab, IgM Negative Negative 7 Hep C Virus Ab <0.1 s/coratio 0.0-0.9 7, 13 CMV Igg/Igm 06/08/2017 Cytomegalovirus (CMV) Ab, >10.00 U/mL High 0.00- 0.59 7, 14 IgG Cytomegalovirus (CMV) Ab, IgM <30.0 AU/mL 0.0-29.9 7, 15 LD Isoenzymes 06/08/2017 LDH 196 IU/L 119-226 7 (LD) Fraction 1 28 % 17-32 7 (LD) Fraction 2 34 % 25-40 7 (LD) Fraction 3 18 % 17-27 7 (LD) Fraction 4 4 % Low 5-13 7 (LD) Fraction 5 16 % 4-20 7 Urine (Fma) 06/08/2017 SP Grav 1.010 Urine, (Fma/CMC/CTX) negative Laboratory test finding 05/24/2017 C Difficile PCR SEE RESULT BELOW 16 Urinalysis Profile 05/24/2017 Urine Color Yellow Urine Appearance Clear Urine Specific Cassel 1.011 1.010-1.030 Urine pH 6.0 5-9 Urine Urobilinogen Negative Negative Urine Ketones Negative Negative Urine Protein Negative Negative Urine Leukocytes Negative Negative Urine Blood Negative Negative Urine Nitrite Negative Negative Urine Bilirubin Negative Negative Urine Glucose Negative Negative CBC Auto Diff 05/24/2017 White Blood Count 3.4 10^3/uL Low 3.5-10.8 17 Red Blood Count 3.50 10^6/uL Low 4.0-5.4 Hemoglobin 11.6 g/dL Low 12.0-16.0 Hematocrit 34 % Low 35-47 Mean Corpuscular Volume 97 fL 80-97 Mean Corpuscular Hemoglobin 33 pg High 27-31 Mean Corpuscular HGB Conc 34 g/dL 31-36 Red Cell Distribution Width 13 % 10.5-15 Platelet Count 213 10^3/uL 150-450 Mean Platelet Volume 7 um3 Low 7.4-10.4 Abs Neutrophils 2.1 10^3/uL 1.5-7.7 Abs Lymphocytes 0.9 10^3/uL Low 1.0-4.8 Abs Monocytes 0.3 10^3/uL 0-0.8 Abs Eosinophils 0.1 10^3/uL 0-0.6 Abs Basophils 0 10^3/uL 0-0.2 Abs Nucleated RBC 0.01 10^3/uL Granulocyte % 62.9 % 38-83 Lymphocyte % 26.9 % 25-47 Monocyte % 7.6 % 1-9 Eosinophil % 1.6 % 0-6 Basophil % 1.0 % 0-2 Nucleated Red Blood Cells % 0.3 Comp Metabolic Panel 05/24/2017 Sodium 133 mmol/L 133-145 Potassium 3.8 mmol/L 3.5-5.0 Chloride 101 mmol/L 101-111 Co2 Carbon Dioxide 23 mmol/L 22-32 Anion Gap 9 mmol/L 2-11 Glucose 80 mg/dL 70-100 Blood Urea Nitrogen 12 mg/dL 6-24 Creatinine 0.56 mg/dL 0.51-0.95 BUN/Creatinine Ratio 21.4 High 8-20 Calcium 8.5 mg/dL Low 8.6-10.3 Total Protein 5.9 g/dL Low 6.4-8.9 Albumin 3.1 g/dL Low 3.2-5.2 Globulin 2.8 g/dL 2-4 Albumin/Globulin Ratio 1.1 1-3 Total Bilirubin 1.70 mg/dL High 0.2-1.0 Alkaline Phosphatase 154 U/L High 34-104 Alt 174 U/L High 7-52 Ast 491 U/L High 13-39 Egfr Non- 121.2 >60 Egfr 155.8 >60 18 Laboratory test finding 05/24/2017 Lipase 28 U/L 11.0-82.0 C Reactive Protein < 1.00 mg/L < 5.00 19 Lactic Acid 2.3 mmol/L High 0.5-2.0 20 Laboratory test finding 04/06/2017 Lipase 43 U/L 11.0-82.0 C Reactive Protein < 1.00 mg/L < 5.00 21 Comp Metabolic Panel 04/06/2017 Sodium 136 mmol/L 133-145 Chloride 102 mmol/L 101-111 Co2 Carbon Dioxide 25 mmol/L 22-32 Glucose 88 mg/dL 70-100 Blood Urea Nitrogen 12 mg/dL 6-24 Creatinine 0.55 mg/dL 0.51-0.95 BUN/Creatinine Ratio 21.8 High 8-20 Calcium 8.9 mg/dL 8.6-10.3 Total Protein 6.6 g/dL 6.4-8.9 Albumin 3.4 g/dL 3.2-5.2 Globulin 3.2 g/dL 2-4 Albumin/Globulin Ratio 1.1 1-3 Total Bilirubin 1.70 mg/dL High 0.2-1.0 Alkaline Phosphatase 116 U/L High 34-104 Alt 86 U/L High 7-52 Egfr Non- 123.7 >60 Egfr 159.1 >60 22 Potassium 3.9 mmol/L 3.5-5.0 Anion Gap 9 mmol/L 2-11 Ast 294 U/L High 13-39 Laboratory test finding 04/06/2017 Lactic Acid 1.7 mmol/L 0.5-2.0 23 CBC Auto Diff 04/06/2017 White Blood Count 3.8 10^3/uL 3.5-10.8 Red Blood Count 3.75 10^6/uL Low 4.0-5.4 Hemoglobin 12.5 g/dL 12.0-16.0 Hematocrit 37 % 35-47 Mean Corpuscular Volume 98 fL High 80-97 Mean Corpuscular Hemoglobin 33 pg High 27-31 Mean Corpuscular HGB Conc 34 g/dL 31-36 Red Cell Distribution Width 12 % 10.5-15 Platelet Count 245 10^3/uL 150-450 Mean Platelet Volume 7 um3 Low 7.4-10.4 Abs Neutrophils 2.5 10^3/uL 1.5-7.7 Abs Lymphocytes 1.0 10^3/uL 1.0-4.8 Abs Monocytes 0.3 10^3/uL 0-0.8 Abs Eosinophils 0.1 10^3/uL 0-0.6 Abs Basophils 0 10^3/uL 0-0.2 Abs Nucleated RBC 0 10^3/uL Granulocyte % 64.5 % 38-83 Lymphocyte % 25.9 % 25-47 Monocyte % 7.3 % 1-9 Eosinophil % 1.7 % 0-6 Basophil % 0.6 % 0-2 Nucleated Red Blood Cells % 0 Urinalysis Profile 04/06/2017 Urine Color Straw Urine Appearance Clear Urine Specific Cassel 1.005 Low 1.010-1.030 Urine pH 7.0 5-9 Urine Urobilinogen Negative Negative Urine Ketones Negative Negative Urine Protein Negative Negative Urine Leukocytes Negative Negative Urine Blood Negative Negative Urine Nitrite Negative Negative Urine Bilirubin Negative Negative Urine Glucose Negative Negative Laboratory test finding 04/06/2017 C Difficile PCR SEE RESULT BELOW 24 Stool Culture SEE RESULT BELOW 25 Ecto-Parasite Identification <pending> Parasitic Examination See Comment 26 Toxassure Select 13 (MW) 02/10/2017 Report Summary FINAL 27 PDF . Laboratory test 02/10/2017 PDF [id number] SEE IMAGE finding Chlamydia/GC 08/13/2016 Chlamydia trachomatis, Negative Negative 28, 29 Amplification Janie Neisseria gonorrhoeae, Janie Negative Negative 28, 30 Laboratory test finding 06/25/2016 PDF [id number] SEE IMAGE Toxassure(R) Select 13 (MW) 06/25/2016 Report Summary FINAL 31 PDF . Complete Blood Count 06/25/2016 WBC 4.4 x10^3/UL 3.6-9.6 RBC 3.59 x10^6/UL Low 3.90-5.70 HGB 11.7 g/dL Low 12.1-17.2 HCT 34 % Low 36-50 MCV 95.0 fL 82.2-97.4 MCH 32.6 pg 27.6-33.3 MCHC 34.3 g/dL 33.0-35.5 RDW 13.4 % 11.6-13.7 PLT 297 x10^3/UL 150-400 MPV 6.7 fL Low 7.4-10.4 Gran # 2.5 x10^3/UL 1.5-7.2 Lymph# 1.6 x10^3/UL 0.7-4.9 [place]# 0.3 x10^3/UL 0.1-0.9 Gran % 54.6 % 42.2-75.2 Lymph % 38.2 % 20.5-51.1 [place]% 7.2 % 1.7-9.3 Lipid Profile 06/25/2016 Cholesterol 177 mg/dL 120-200 Triglycerides 79 mg/dL 30-200 HDL Cholesterol 102 mg/dL High 32 LDL (Calculated) 59 CALC 0-129 VLDL Cholesterol 16 mg/dL 0-50 HDL Risk Factor 1.7 CALC 0.0-4.4 Comprehensive Metabolic Prof 06/25/2016 Sodium 142 mEq/L 134-149 Potassium 4.3 mEq/L 3.6-5.5 Chloride 104 mEq/L 94-112 Carbon Dioxide 25 mEq/L 21-32 Glucose 77 mg/dL 70-105 BUN 14 mg/dL 6-26 Creatinine 0.7 mg/dL 0.6-1.4 BUN/Creat Ratio 20.0 CALC 8.0-36.0 Calcium 8.9 mg/dL 8.6-10.2 Total Protein 7.1 g/dL 6.4-8.3 Albumin 4.2 g/dL 3.8-5.5 Globulin 2.9 g/dL 2.0-4.8 A/G Ratio 1.4 CALC 0.6-2.3 Alk. Phosphatase 48 U/L 30-110 Alt (SGPT) 17 U/L 7-35 Ast (Sgot) 29 U/L 5-34 Total Bilirubin 0.6 mg/dL 0.2-1.3 GFR Non- >60 ml/min/1.73m^ >=60 GFR >60 ml/min/1.73m^ >=60 Laboratory test finding 07/15/2015 PDF [id number] SEE IMAGE Pap HPV High Risk 07/15/2015 Diagn See Comment: 33 Adeq See Comment: 34 [email or web address] See Comment: 35 Perfor See Comment: 36 QC Rev See Comment: 37 Comm . Note See Comment: 38 Iglbp See Comment: 39 HPV, high-risk Negative Negative 40 Ua - Non Micro (Fma) 07/15/2015 Appearance yellow Color clear Glucose, Urine (Fma/CMC/CTX) neg Bilirubin neg Ketones neg SP Grav 1.020 Blood neg PH 7.5 Protein neg Urobil 0.2 Nitrite neg Leukocytes (Fma/CMC/Centrex) neg Lipid Profile 07/15/2015 Cholesterol 168 mg/dL 120-200 Triglycerides 109 mg/dL 30-200 HDL Cholesterol 97 mg/dL High 3085 41 LDL (Calculated) 49 CALC 0-129 VLDL Cholesterol 22 mg/dL 0-50 HDL Risk Factor 1.7 CALC 0.0-4.4 Comprehensive Metabolic Prof 07/15/2015 Sodium 137 mEq/L 134-149 Potassium 4.4 mEq/L 3.6-5.5 Chloride 102 mEq/L 94-112 Carbon Dioxide 31 mEq/L 21-32 Glucose 84 mg/dL 70-105 BUN 10 mg/dL 6-26 Creatinine 0.6 mg/dL 0.6-1.4 BUN/Creat Ratio 16.7 CALC 8.0-36.0 Calcium 9.1 mg/dL 8.6-10.2 Total Protein 6.7 g/dL 6.4-8.3 Albumin 4.2 g/dL 3.8-5.5 Globulin 2.5 g/dL 2.0-4.8 A/G Ratio 1.7 CALC 0.6-2.3 Alk. Phosphatase 40 U/L 30-110 Alt (SGPT) 14 U/L 7-35 Ast (Sgot) 24 U/L 5-34 Total Bilirubin 0.3 mg/dL 0.2-1.3 GFR Non- >60 ml/min/1.73m^ >=60 GFR >60 ml/min/1.73m^ >=60 Complete Blood Count 07/15/2015 WBC 5.0 x10^3/UL 3.6-9.6 RBC 3.85 x10^6/UL Low 3.90-5.70 42 HGB 12.7 g/dL 12.1-17.2 HCT 37 % 36-50 MCV 97.0 fL 82.2-97.4 MCH 33.0 pg 27.6-33.3 MCHC 34.2 g/dL 33.0-35.5 RDW 13.3 % 11.6-13.7 PLT 272 x10^3/UL 150-400 MPV 7.6 fL 7.4-10.4 Gran # 2.2 x10^3/UL 1.5-7.2 Lymph# 2.5 x10^3/UL 0.7-4.9 [place]# 0.3 x10^3/UL 0.1-0.9 Gran % 42.7 % 42.2-75.2 Lymph % 50.9 % 20.5-51.1 [place]% 6.4 % 1.7-9.3 Toxassure(R) Select 13 (MW) 07/15/2015 Report Summary FINAL 43, 44 PDF . 43 Laboratory test 07/15/2015 RPR Non Reactive Non Reactive 43 finding Panel [id number] PT 07/15/2015 HIV 1/O/2 <1.00 <1.00 43, 45 Only Abs-Index Value HIV 1/O/2 Abs, Qual Non Reactive Non Reactive 43 Chlamydia/GC Amplification 07/15/2015 Chlamydia trachomatis, Negative Negative 43 Janie Neisseria gonorrhoeae, Janie Negative Negative 43 Please note: See Comment: 43, 46 Hepatitis Panel, Acute 07/15/2015 Hep A Ab, IgM Negative Negative 43 HBsAg Screen Negative Negative 43 Hep B Core Ab, IgM Negative Negative 43 Hep C Virus Ab <0.1 s/coratio 0.0-0.9 43, 47 Laboratory test finding 07/15/2015 PDF [id number] SEE IMAGE 43 Comprehensive Metabolic Prof 01/14/2015 Sodium 139 mEq/L 134-149 Potassium 4.3 mEq/L 3.6-5.5 Chloride 107 mEq/L 94-112 Carbon Dioxide 24 mEq/L 21-32 Glucose 89 mg/dL 70-105 BUN 16 mg/dL 6-26 Creatinine 0.6 mg/dL 0.6-1.4 BUN/Creat Ratio 26.7 CALC 8.0-36.0 Calcium 9.0 mg/dL 8.6-10.2 Total Protein 6.7 g/dL 6.4-8.3 Albumin 4.2 g/dL 3.8-5.5 Globulin 2.5 g/dL 2.0-4.8 A/G Ratio 1.7 CALC 0.6-2.3 Alk. Phosphatase 41 U/L 30-110 Alt (SGPT) 16 U/L 7-35 Ast (Sgot) 28 U/L 5-34 Total Bilirubin 0.3 mg/dL 0.2-1.3 Laboratory test finding 01/14/2015 TSH 1.38 mIU/L 0.50-6.00 Free T4 0.88 ng/dL 0.75-1.54 Lyme Igg/M W/Reflx West 01/14/2015 Lyme IgG/IgM Ab <0.91 ISR 0.00- 0.90 48 Lyme Disease Ab, Quant, IgM <0.80 index 0.00-0.79 49 CBC Electronic (a) 01/14/2015 WBC 5.6 3.6-9.6 RBC 3.81 Low 3.90-5.70 Hemoglobin (Fma/CMC/CTX) 12.4 g/dL 12.1 - 17.2 Hematocrit (Fma/CMC/CTX) 36.9 % 36.1 - 50.3 Platelets 292 10^3/ul 150-400 Lymph% 44.5 % 17.0-48.0 Mixed% 4.8 Neutrophils % 50.7 Mean Corpuscular Vol 97 82.2-97.4 Mean Corpuscular Hemoglobin 32.6 27.6-33.3 Mean Corpuscular Hemo Concen 33.7 32.0-36.0 RDW 13.3 11.6-13.7 Mean Platelet Volume 7.0 5.5-11.0 Laboratory test finding 01/14/2015 Inr (a) 1.0 0.9-1.1 Ua - Non Micro (a) 07/23/2014 Appearance CLEAR Color yellow Glucose, Urine (a/CMC/CTX) neg Bilirubin neg Ketones trace SP Grav 1.025 Blood neg PH 6.0 Protein neg Urobil 1.0 Nitrite neg Leukocytes (a/[facility]/Centrex) neg Laboratory test finding 07/23/2014 Hemoglobin A1c (a/[facility],CX) 5.1 % 4.1- 5.7 Microalb, Random (a/CMC/CTX) 26.1 mg/L mg/L 0.5-37 Complete Blood Count 07/23/2014 WBC 5.2 x10^3/UL 3.6-9.6 RBC 3.94 x10^6/UL 3.90-5.70 HGB 12.6 g/dL 12.1-17.2 HCT 38 % 36-50 MCV 95.0 fL 82.2-97.4 MCH 32.0 pg 27.6-33.3 MCHC 33.6 g/dL 33.0-35.5 RDW 11.9 % 11.6-13.7 PLT 297 x10^3/UL 150-400 MPV 7.7 fL 7.4-10.4 Gran # 3.2 x10^3/UL 1.5-7.2 Lymph# 1.8 x10^3/UL 0.7-4.9 [place]# 0.2 x10^3/UL 0.1-0.9 Gran % 58.4 % 42.2-75.2 Lymph % 36.3 % 20.5-51.1 [place]% 5.3 % 1.7-9.3 Laboratory test finding 07/23/2014 TSH 1.97 mIU/L 0.50-6.00 Lipid Profile 07/23/2014 Cholesterol 159 mg/dL 120-200 Triglycerides 56 mg/dL 30-200 HDL Cholesterol 82 mg/dL 30-85 LDL (Calculated) 66 CALC 0-129 VLDL Cholesterol 11 mg/dL 0-50 HDL Risk Factor 1.9 CALC 0.0-4.4 Comprehensive Metabolic Prof 07/23/2014 Sodium 134 mEq/L 134-149 Potassium 3.7 mEq/L 3.6-5.5 Chloride 99 mEq/L 94-112 Carbon Dioxide 25 mEq/L 21-32 Glucose 88 mg/dL 70-105 BUN 17 mg/dL 6-26 Creatinine 0.6 mg/dL 0.6-1.4 50 BUN/Creat Ratio 28.3 CALC 8.0-36.0 Calcium 8.7 mg/dL 8.6-10.2 Total Protein 6.7 g/dL 6.4-8.3 Albumin 3.9 g/dL 3.8-5.5 Globulin 2.8 g/dL 2.0-4.8 A/G Ratio 1.4 CALC 0.6-2.3 Alk. Phosphatase 45 U/L 30-110 Alt (SGPT) 11 U/L 7-35 Ast (Sgot) 20 U/L 5-34 Total Bilirubin 0.7 mg/dL 0.2-1.3 1 RESULTS VERIFIED BY REPEAT ANALYSIS 2 RESULTS VERIFIED BY REPEAT ANALYSIS 3 SEE RESULT BELOW Name: JEMIMA ZAMUDIO : [address]: Sara Munguia MD Acct: [id number] Unit: [id number] AGE: 36 Location: [facility] Re06/21/17 SEX: F Status: REG REF SPEC: [id number] RADHA: 06/21/17-[address]: Sara Munguia MD REQ: [id number] RECD: 06/21/17-1929 STATUS: COMP _ SOURCE: STOOL SPDESC: ORDERED: C. diff PCR, Stool Culture COMMENTS: Verbal to Mari Augustin RN/office by [id number] at 2028 on 06/21/17. Results read back accurately. Procedure Result Reported Site Stool Culture Final 06/23/17- 1431 ML Result No enteric pathogens isolated Testing for Salmonella, Shigella, Aeromonas, Plesiomonas, Yersinia and Campylobacter are included in a Stool Culture. Vibrio spp not routinely tested for in a stool culture. If testing is desired, please request specifically when placing test order. Sensitivities not routinely performed on stool isolates, as antibiotics may prolong the carriage rate of bacteria. Please contact the microbiology lab if sensitivities are required. Stool Specimen Description Final 06/21/17- 194 ML Stool Color Brown Stool Form Nonformed Stool Consistency Soft Shiga Toxin 1 2 Final 06/22/17- 1319 ML Organism 1 Negative Shiga Toxin 1 2 CONTINUED ON NEXT PAGE * ML=Testing performed at Main Lab DEPARTMENT OF PATHOLOGY, [address] [place] [address] Salvador Amezcua M.D. Director [facility] # [id number] Patient: JEMIMA ZAMUDIO [id number] (Continued) Specimen: [id number] Collected: 06/21/17-1506 Received: 06/21/17 (Continued) Procedure Result Reported Site Shiga Toxin 1 2 Final (continued) 06/22/17- 1319 Immunochromatographic Assay C. difficile PCR Final 06/21/17- 2027 ML Organism 1 027 Presumptive NEGATIVE Organism 2 Toxigenic C.diff POSITIVE * ML - MAIN LAB ([facility]) . END OF REPORT * ML=Testing performed at Main Lab DEPARTMENT OF PATHOLOGY, [address] [place] [address] Salvador Amezcua M.D. Director [facility] # [id number] 4 RESULTS VERIFIED BY REPEAT ANALYSIS 5 RESULTS VERIFIED BY REPEAT ANALYSIS 6 RESULTS VERIFIED BY REPEAT ANALYSIS 7 KEEP AT ROOM TEMP 8 Negative <36.0 Equivocal 36.0 - 43.9 Positive >43.9 9 Hepatitis A, Hepatitis C and HIV antibodies may cross-react with this assay. Negative < 9.0 Equivocal 9.0 - 10.9 Positive >10.9 10 Negative <18.0 Equivocal 18.0 - 21.9 Positive >21.9 11 Negative <18.0 Equivocal 18.0 - 21.9 Positive >21.9 12 EBV Interpretation Chart Interpretation EBV-IgM EA(D)-IgG VCA-IgG EBNA-IgG EBV Seronegative - - - - Early Phase + - - - Acute Primary + +or- + - Infection Convalescence/Past - +or- + + Infection Reactivated +or- + + + Infection + Antibody Present - Antibody Absent 13 Negative: < 0.8 Indeterminate: 0.8 - 0.9 Positive: > 0.9 The CDC recommends that a positive HCV antibody result be followed up with a HCV Nucleic Acid Amplification test (045598). 14 Client Requested Flag Negative <0.60 Equivocal 0.60 - 0.69 Positive >0.69 15 Negative <30.0 Equivocal 30.0 - 34.9 Positive >34.9 A positive result is generally indicative of acute infection, reactivation or persistent IgM production. 16 SEE RESULT BELOW Name: CHRISTINADRUTIFFANY JORGESHAYJenae Torres : [address]: Zane Shirley MD Acct: [id number] Unit: [id number] AGE: 36 Location: ED Re05/24/17 SEX: F Status: DEP ER SPEC: [id number] RADHA: 05/24/17-1514 [facility] DR: Zane Shirley MD REQ: [id number] RECD: 05/24/17-925 STATUS: ORTIZ LOBATO DR: Sara Munguia MD _ SOURCE: STOOL SPDESC: ORDERED: Adams chand PCR, Stool Culture Procedure Result Reported Site Stool Culture Final 05/26/17- 1047 ML Result No enteric pathogens isolated Testing for Salmonella, Shigella, Aeromonas, Plesiomonas, Yersinia and Campylobacter are included in a Stool Culture. Vibrio spp not routinely tested for in a stool culture. If testing is desired, please request specifically when placing test order. Sensitivities not routinely performed on stool isolates, as antibiotics may prolong the carriage rate of bacteria. Please contact the microbiology lab if sensitivities are required. Stool Specimen Description Final 05/24/17- 1559 ML Stool Color Green Stool Form Nonformed Stool Consistency Soft Shiga Toxin 1 2 Final 05/25/17- 0824 ML Organism 1 Negative Shiga Toxin 1 2 Immunochromatographic Assay CONTINUED ON NEXT PAGE * ML=Testing performed at Main Lab DEPARTMENT OF PATHOLOGY, [address] [place] [address] Salvador Amezcua M.D. Director [facility] # [id number] Patient: CHRISTINADRUTIFFANY JORGESHAYJenae Torres [id number] (Continued) Specimen: [id number] Collected: 05/24/17-1513 Received: 05/24/17-1542 (Continued) Procedure Result Reported Site Shiga Toxin 1 2 Final (continued) 05/25/17- 0824 C. difficile PCR Final 05/24/17- 1633 ML Organism 1 027 Presumptive NEGATIVE Organism 2 Toxigenic C.diff NEGATIVE * ML - MAIN LAB ([facility]) . END OF REPORT * ML=Testing performed at Main Lab DEPARTMENT OF PATHOLOGY, [address] [place] [address] Salvador Amezcua M.D. Director [facility] # [id number] 17 Consistent with previous results on 04/06/17. 18 Because ethnic data is not always readily available, this report includes an eGFR for both -Americans and non- Americans. The National Kidney Disease Education Program (NKDEP) does not endorse the use of the MDRD equation for patients that are not between the ages of 18 and 70, are , have extremes of body size, muscle mass, or nutritional status, or are non- or non-. According to the National Kidney Foundation, irrespective of diagnosis, the stage of the disease is based on the level of kidney function: Stage Description GFR(mL/min/1.73 m(2)) 1 Kidney damage with normal or decreased GFR 90 2 Kidney damage with mild decrease in GFR 60-89 3 Moderate decrease in GFR 30-59 4 Severe decrease in GFR 15-29 5 Kidney failure <15 (or dialysis) 19 Acute inflammation: >10.00 20 Critical Result LACT:2.3 Called to JASE CARVALHO at: 14:02:16 by: Read back by:JASE CARVALHO [facility] Severe Sepsis and Septic Shock Management Bundle Measure requires all lactic acids initially measuring >2.0 mmol/L be repeated. 21 Acute inflammation: >10.00 22 Because ethnic data is not always readily available, this report includes an eGFR for both -Americans and non- Americans. The National Kidney Disease Education Program (NKDEP) does not endorse the use of the MDRD equation for patients that are not between the ages of 18 and 70, are , have extremes of body size, muscle mass, or nutritional status, or are non- or non-. According to the National Kidney Foundation, irrespective of diagnosis, the stage of the disease is based on the level of kidney function: Stage Description GFR(mL/min/1.73 m(2)) 1 Kidney damage with normal or decreased GFR 90 2 Kidney damage with mild decrease in GFR 60-89 3 Moderate decrease in GFR 30-59 4 Severe decrease in GFR 15-29 5 Kidney failure <15 (or dialysis) 23 [facility] Severe Sepsis and Septic Shock Management Bundle Measure requires all lactic acids initially measuring >2.0 mmol/L be repeated. 24 SEE RESULT BELOW Name: JEMIMA ZAMUDIO : [address]: Zane Shirley MD Acct: [id number] Unit: [id number] AGE: 36 Location: ED Re04/06/17 SEX: F Status: DEP ER SPEC: [id number] RADHA: 04/06/17 [facility] DR: Zane Shirley MD REQ: [id number] RECD: 04/06/17 STATUS: ORTIZ LOBATO DR: Sara Munguia MD _ SOURCE: STOOL SPDESC: ORDERED: C. jagruti PCR, O P: Giar/Crypt Procedure Result Reported Site Stool Specimen Description Final 04/06/17- 1254 ML Stool Color Light Brown Stool Form Nonformed Stool Consistency Soft C. difficile PCR Final 04/06/17- 1407 ML Organism 1 027 Presumptive NEGATIVE Organism 2 Toxigenic C.diff POSITIVE O P: Giardia/Cryptospor Screen Final 04/06/17- 140 ML Organism 1 Neg Cryptosporidium/Giardia Giardia and cryptosporidium antigen testing performed by enzyme immunoassay. If patient is immunocompromised or has traveled to or is from a developing country, a full ova and parasite exam with microscopic (OPMIC) is recommended. All samples will be held one month in case full ova and parasite testing is requested. Contact the Microbiology Department at [phone]. TEST LIMITATIONS: As with all diagnostic procedures, the results obtained should be used in conjunction with other clinical information available the physician, including confirmation by another method. Negative results can occur in samples containing antigen below lower limits of detection of the assay. One negative specimen does not rule out the possibility of a parasitic infection. To improve detection it is recommended that three specimens be collected on separate days over a period of not more than seven CONTINUED ON NEXT PAGE * ML=Testing performed at Main Lab DEPARTMENT OF PATHOLOGY, [address] [place] [address] Salvador Amezcua M.D. Director [facility] # [id number] Patient: CHRISTINADRUJMEIMA JORGE [id number] (Continued) Specimen: [id number] Collected: 04/06/17-1220 Received: 04/06/171238 (Continued) Procedure Result Reported Site O P: Giardia/Cryptospor Screen Final (continued) 04/06/17- 1403 days. The use of colonic washes, aspirates or other diluted sample types has not been established and could affect the performance of the assay. Stool samples contaminated with an oily or particulate base (eg. Barium, mineral oil etc.) could interfere with the test and are not recommended. * ML - MAIN LAB ([facility]) . END OF REPORT * ML=Testing performed at Main Lab DEPARTMENT OF PATHOLOGY, [address] [place] [address] Salvador Amezcua M.D. Director [facility] # [id number] 25 SEE RESULT BELOW Name: JEMIMA ZAMUDIO : [address]: Zane Shirley MD Acct: [id number] Unit: [id number] AGE: 36 Location: ED Re04/06/17 SEX: F Status: DEP ER SPEC: [id number] RADHA: 04/06/17-0 [facility] DR: Zane Shirley MD REQ: [id number] RECD: 04/06/17 STATUS: ORTIZ LOBATO DR: Sara Munguia MD _ SOURCE: STOOL SPDESC: ORDERED: Stool Culture Procedure Result Reported Site Stool Culture Final 04/09/17- 1316 ML Result No enteric pathogens isolated Testing for Salmonella, Shigella, Aeromonas, Plesiomonas, Yersinia and Campylobacter are included in a Stool Culture. Vibrio spp not routinely tested for in a stool culture. If testing is desired, please request specifically when placing test order. Sensitivities not routinely performed on stool isolates, as antibiotics may prolong the carriage rate of bacteria. Please contact the microbiology lab if sensitivities are required. Stool Specimen Description Final 04/06/17- 1254 ML Stool Color Light Brown Stool Form Nonformed Stool Consistency Soft Shiga Toxin 1 2 Final 04/07/17- 1136 ML Organism 1 Negative Shiga Toxin 1 2 Immunochromatographic Assay CONTINUED ON NEXT PAGE * ML=Testing performed at [facility] DEPARTMENT OF PATHOLOGY, [address] [place] [address] Salvador Amezcua M.D. Director [facility] # [id number] Patient: JEMIMA ZAMUDIO [id number] (Continued) Specimen: [id number] Collected: 04/06/170 Received: 04/06/17 (Continued) Procedure Result Reported Site Shiga Toxin 1 2 Final (continued) 04/07/171135 * ML - MAIN LAB ([facility]) . END OF REPORT * ML=Testing performed at Main Lab DEPARTMENT OF PATHOLOGY, [address] [place] [address] Salvador Amezcua M.D. Director [facility] # [id number] 26 SOURCE: STOOL PARASITIC EXAMINATION FINAL No parasites seen. Cryptosporidium, Cyclospora, and microsporidia are not readily detected by this method. Single negative specimen does not rule out parasitic infection. Test Performed by: [address] [address] 27 TOXASSURE SELECT 13 (MW) Test Result Flag Units Drug Present and Declared for Prescription Verification Oxycodone 8039 EXPECTED ng/mg creat Oxymorphone 1410 EXPECTED ng/mg creat Noroxycodone >47088 EXPECTED ng/mg creat Noroxymorphone 544 EXPECTED ng/mg creat Sources of oxycodone are scheduled prescription medications. Oxymorphone, noroxycodone, and noroxymorphone are expected metabolites of oxycodone. Oxymorphone is also available as a scheduled prescription medication. Drug Present not Declared for Prescription Verification Alcohol, Ethyl 0.042 UNEXPECTED g/dL Sources of ethyl alcohol include alcoholic beverages or as a fermentation product of glucose; glucose was not detected in this specimen. Ethyl alcohol result should be interpreted in the context of all available clinical and behavioral information. Test Result Flag Units Ref Range Creatinine 93 mg/dL >=20 Declared Medications: The flagging and interpretation on this report are based on the following declared medications. Unexpected results may arise from inaccuracies in the declared medications. Note: The testing scope of this panel includes these medications: Oxycodone (Oxycodone Acetaminophen) Note: The testing scope of this panel does not include following reported medications: Acetaminophen (Oxycodone Acetaminophen) Lamotrigine Nicotine For clinical consultation, please call . 28 SRC:<Blank> 1URINE APTIMA 29 Source of Specimen: <Blank> 1URINE APTIMA 30 Source of Specimen: <Blank> 1URINE APTIMA 31 TOXASSURE SELECT 13 (MW) Test Result Flag Units Drug Present Carboxy-THC 63 ng/mg creat Carboxy-THC is a metabolite of tetrahydrocannabinol (THC). Source of THC is most commonly illicit, but THC is also present in a scheduled prescription medication. Oxycodone 1954 ng/mg creat Oxymorphone 84 ng/mg creat Noroxycodone >5102 ng/mg creat Noroxymorphone 94 ng/mg creat Sources of oxycodone are scheduled prescription medications. Oxymorphone, noroxycodone, and noroxymorphone are expected metabolites of oxycodone. Oxymorphone is also available as a scheduled prescription medication. Test Result Flag Units Ref Range Creatinine 196 mg/dL >=20 Declared Medications: Medication list was not provided. For clinical consultation, please call . 32 consistent w/ previous results 33 NEGATIVE FOR INTRAEPITHELIAL LESION AND MALIGNANCY. THIS SPECIMEN WAS RESCREENED PART OF OUR [employer]. 34 Satisfactory for evaluation. No endocervical component is identified. The absence of an endocervical component was confirmed by an additional screening evaluation. 35 Z12.4 36 Perez Riojas, Manager Custom (ASCP) 37 Esteban Saleem, Manager Custom (ASCP) 38 The Pap smear is a screening test designed to aid in the detection of premalignant and malignant conditions of the uterine cervix. It is not a diagnostic procedure and should not be used as the sole means of detecting cervical cancer. Both false-positive and false-negative reports do occur. 39 This liquid based ThinPrep(R) pap test was screened with the use of an image guided system. 40 This high-risk HPV test detects thirteen high-risk types (16/18/31/33/35/39/45/51/52/56/58/59/68) without differentiation. 41 RESULTS VERIFIED BY REPEAT ANALYSIS 42 consistent w/ previous results 43 2 ssts 44 TOXASSURE SELECT 13 (MW) Test Result Flag Units Drug Present Hydrocodone 67 ng/mg creat Norhydrocodone 212 ng/mg creat Sources of hydrocodone include scheduled prescription medications. Norhydrocodone is an expected metabolite of hydrocodone. Oxycodone 2188 ng/mg creat Oxymorphone 1813 ng/mg creat Noroxycodone 9051 ng/mg creat Noroxymorphone 374 ng/mg creat Sources of oxycodone are scheduled prescription medications. Oxymorphone, noroxycodone, and noroxymorphone are expected metabolites of oxycodone. Oxymorphone is also available as a scheduled prescription medication. Test Result Flag Units Ref Range Creatinine 100 mg/dL >=20 Declared Medications: Medication list was not provided. For clinical consultation, please call . 45 Index Value: Specimen reactivity relative to the negative cutoff. 46 Acceptable specimens for this test are male urethral swab, endocervical swab and liquid based pap specimens, vaginal swabs in APTIMA transports and first void urine. See online Directory of Services for test number for rectal and pharyngeal specimens. 47 Negative: < 0.8 Indeterminate: 0.8 - 0.9 Positive: > 0.9 In order to reduce the incidence of a false positive result, the CDC recommends that all s/co ratios between 1.0 and 10.9 be confirmed by a more specific supplemental or PCR testing. [employer] offers HCV Ab w/Reflex to Verification test #[id number]. 48 Negative <0.91 Equivocal 0.91 - 1.09 Positive >1.09 49 Negative <0.80 Equivocal 0.80 - 1.19 Positive >1.19 IgM levels may peak at 3-6 weeks post infection, then gradually decline. 50 RESULTS VERIFIED BY REPEAT ANALYSIS Procedures Description No Information Encounters Type Date Location Provider CPT E/M Dx Office Visit 06/21/2017 3:00p [facility] Sara Munguia M.D. 91809 R19.7 F31.9 M79.7 L93.1 K70.9 Office Visit 06/08/2017 2:15p [place] [address] R94.5 R10.30 R19.7 Office Visit 04/21/2017 11:30a [place] [address] T36.8x5A A04.72 Office Visit 04/14/2017 2:00p [place] [address] A04.72 Office Visit 04/07/2017 3:00p [place] [address] A04.72 Office Visit 04/06/2017 2:30p [facility] Office Sara Munguia M.D. 81996 Z11.1 Office Visit 02/10/2017 4:00p [facility] Office Sara Munguia M.D. 05692 F31.9 M79.7 Office Visit 11/09/2016 4:30p [facility] Office Sara Munguia M.D. 96677 F31.9 M79.7 Office Visit 08/12/2016 7:20p [facility] Office Sara Munguia M.D. 27985 F31.9 L93.1 Z20.2 M79.7 M54.5 F17.210 H35.89 Z71.6 Office Visit 06/22/2016 10:40a Main Office Sara Munguia M.D. 77542 M79.7 F31.9 M25.512 L93.1 Office Visit 03/12/2016 4:30p Main Office Sara Munguia M.D. 36261 Z11.1 Office Visit 03/04/2016 7:10p Main Office Sara Munguia M.D. 09668 M79.7 F31.9 Office Visit 11/04/2015 4:30p Main Office Sara Munguia M.D. 51676 M79.7 F31.9 M25.512 L93.1 Office Visit 07/15/2015 8:00a Main Office Sara Munguia M.D. 50923 Z00.00 M79.7 F31.9 M25.512 N94.6 Z11.3 Office Visit 03/17/2015 4:40p Main Office Sara Munguia M.D. 18319 729.1 296.80 724.2 V04.81 Office Visit 01/14/2015 3:00p Main Office Sara Munguia M.D. 22248 782.7 296.80 729.1 305.1 Office Visit 08/29/2014 6:00p Main Office Sara Munguia M.D. 37535 296.80 729.1 719.41 305.1 Office Visit 07/23/2014 10:50a Main Office Sara Munguia M.D. 96738 250.00 296.80 719.41 729.1 724.2 Plan of Care Future Appointment(s):08/23/2017 3:50 pm - Sara Munguia M.D. at [facility] [place]8107/14/2017 - Laine Hilliard, NPR19.7 Diarrhea, unspecifiedNew Labs: Influenza A&B-fmaA04.72 Enterocolitis d/t Clostridium difficile, not spcf as recurNew Labs:C Diff Toxin B PCR StoolComments:Repeat the stool test if your diarrhea does not resolve in 1-2 days. Follow up with Gastro as planned next week.1. Patient has been queried about patient's goals/preferences and functional/lifestyle goals at relevant visits. If relevant, describe: n/a2. Treatment goals as explained to the patient: n/a3. Are there barriers to meeting treatment goals? Yes No If Yes, please describe:4. Self- Management goals as described to the patient: Yes No
--- OUTSIDE RECORDS SUMMARY | 2017-07-18 08:15 | XMS REPORT ---
:1980 External Reference #:[id number] Author Organization [facility] Address [address] [place] [address] Phone [phone] Care Team Providers Name Role Phone Sara Munguia M.D. Care Team Information Manager Of Distribution Unavailable Sara Munguia M.D. Primary Care Physician Unavailable Payers Type Date Identification Numbers Payment Provider Subscriber Medicaid Effective: Policy Number: [id number] [facility] Jemima Torres 2013 Ravi PayID: [id number] [address] [address] [place] [address] Problems Date Description Provider Status Onset: 07/23/2014 [...] Education Highest level completed, Bachelor's Degree Occupation [place] [employer] Cigarette Use Former Cigarette Smoker 1 [...] by M25.512 Sara 2017 bs mouth q6 , hours as M.D. needed Lamotrigine 11/09/ Active Tablets 200mg 30tab 1 tab daily F31.9 Sarah 2017 s Cheryl Miles-Tiffany Metronidazole 04/14/ Hx Tablets 500mg 12tab Take one by A04.72 Laine Lamas 2016 - s mouth 3 Babak, 04/21/ times per DEVELOPMENT TECHNICAL LEAD 2016 day until gone Venlafaxine HCL 09/28/ Hx Caps ER 75mg 30cap take one F31.9 Sara ER 2017 - 24HR s capsule by Riva, 11/09/ mouth at M.D. 2017 bedtime Doxycycline 08/12/ Hx Tablets 100mg 14tab 1 tab twice Z20.2 Sara Hyclate 2016 - s a day x 7 , 09/28/ days M.D. 2017 Physical Hx treatment M79.7 Sara Therapy 2016 - and Riva, 09/28/ evaluation M.D. 2017 low back pain Nicotine Step 2 08/12/ Hx Patches 14mg/24HR 30uni 1 patch F17.210 Sara 2016 - 24HR ts daily, Riva, 04/06/ remove prior M.D. 2016 patch and [...] tab daily F31.9 Sara 2016 - s , 09/28/ M.D. 2017 Physical 06/22/ Hx treatment M25.512 Sara Therapy 2016 - and Riva, 06/24/ evaluation M.D. 2016 left shoulder pain Lamotrigine 03/04/ Hx Tablets 200mg 30tab 1 tab daily F31.9 Sara 2016 - s Riva, 06/24/ M.D. 2016 Physical 11/03/ Hx treatment M25.512 Sara Therapy 2016 - and Riva, 06/22/ evaluation M.D. 2016 low back pain and Left shoulder pain Bupropion HCL 11/03/ Hx Tablets 150mg 30tab 1 by mouth F31.9 Jil ER (XL) 2015 - ER 24HR s every day [facility], 06/24/ RISK MANAGEMENT SPECIALIST 2016 Lamotrigine 03/17/ Hx Tablets 100mg 30tab 1 tab by F31.9 Jil 2014 - s mouth every [facility], 03/04/ day RISK MANAGEMENT SPECIALIST 2016 Chantix 02/13/ Hx Tablets 1mg 60tab take 1 Sara Continuing 2014 - tablet by Riva, Month Tevin 07/15/ mouth twice M.D. 2016 a day Chantix 01/14/ Hx Tablets 0.5mg X 1tabs 1 starter F17.200 Sara Starting Month 2014 & pack for a RivaTevin 08/13/ 1 mg X 42 month,then M.D. 2017 refill maintenance packs Bupropion HCL 08/29/ Hx Tablets 150mg 30tab 1 by mouth 305.1 Sara ER (XL) 2014 - ER 24HR s every day Riva, 01/14/ M.D. 2014 296.80 Oxycodone-Acetaminophen 07/23/2014 Hx Tablets 5-325mg 120tabs 1 tab M25.512 Sara - by Riva, 2016 mouth M.D. every 6 hour as needed Ibuprofen 07/23/2014 Hx Tablets 800mg 90tabs 1 by M25.512 Sara - mouth Riva, 2016 q8 M.D. hours three times a day with food Lamotrigine 07/23/2014 Hx Tablets 100mg 30tabs 1 tab 296.80 Sara - by Riva, 01/14/2015 mouth M.D. every day Metformin HCL ER Hx Tablets 750mg 90tabs 1 po qd Unknown - ER 24HR 07/24/2014 Clobetasol Propionate Hx Lotion 0.05% 118ml apply Sara - to Riva, 2016 scalp M.DArturo twice a day as needed Implanon Hx Implant 68mg Unknown - 2016 Ciprofloxacin HCL Hx Tablets 500mg 1 by Unknown - mouth 04/14/2017 twice a day Metronidazole Hx Tablets 500mg 1 tab Unknown - by 04/21/2017 mouth tHREE Times a day Medications Administered in Office Medication Date Status Form Strength Qnty SIG Indications Ordering Provider TB Intradermal Administered Injection Sara Test 017 Jesus Munguia TB Intradermal Administered Injection Sara Morataya 016 Jesus Munguia Immunizations CPT Code Status Date Vaccine Lot # [id number] Given 03/17/2015 Influenza Vac, Quadrivalent, Slit Virus, Im [id number] Vital Signs Date Vital Result Comment 06/21/2017 BP Systolic 120 mmHg BP Diastolic [...] Test Date Test Result H/L Range Note Laboratory test finding 06/21/2017 TSH <pending> 0.5-5.0 Free T4 <pending> 0.75-1.54 Comprehensive Metabolic Prof 06/08/2017 Sodium 141 mEq/L [...] 0.6-2.3 Alk. Phosphatase 171 U/L High 30-110 1 Alt (SGPT) 90 U/L High 7-35 2 Ast (Sgot) 132 U/L High 5-34 3 Total Bilirubin 1.0 mg/dL 0.2-1.3 GFR Non- >60 ml/min/1.73m^ >=60 GFR >60 ml/min/1.73m^ >=60 Ebv Acute Infection 06/08/2017 Ebv Ab Vca, IgM <36.0 U/mL 0.0-35.9 4 , 5 Antibodies Profile Ebv Early Antigen Ab, IgG 13.2 U/mL High 0.0-8.9 4, 6 Ebv Ab Vca, IgG >600.0 U/mL High 0.0-17.9 4, 7 Ebv Nuclear Antigen Ab, IgG 470.0 U/mL High 0.0-17.9 4, 8 Interpretation: See Comment: 4, 9 Hepatitis Panel, Acute 06/08/2017 Hep A Ab, IgM Negative Negative 4 HBsAg Screen Negative Negative 4 Hep B Core Ab, IgM Negative Negative 4 Hep C Virus Ab <0.1 s/coratio 0.0-0.9 4, 10 CMV Igg/Igm 06/08/2017 Cytomegalovirus (CMV) Ab, >10.00 U/mL High 0.00- 0.59 4, 11 IgG Cytomegalovirus (CMV) Ab, IgM <30.0 AU/mL 0.0-29.9 4, 12 LD Isoenzymes 06/08/2017 LDH 196 IU/L 119-226 4 (LD) Fraction 1 28 % 17-32 4 (LD) Fraction 2 34 % 25-40 4 (LD) Fraction 3 18 % 17-27 4 (LD) Fraction 4 4 % Low 5-13 4 (LD) Fraction 5 16 % 4-20 4 Urine (Fma) 06/08/2017 SP Grav 1.010 Urine, (Fma/CMC/CTX) negative Laboratory test finding 05/24/2017 C Difficile PCR SEE RESULT BELOW 13 Urinalysis Profile 05/24/2017 Urine Color Yellow Urine Appearance Clear Urine Specific Show Low 1.011 1.010-1.030 Urine pH 6.0 5-9 Urine Urobilinogen Negative Negative Urine Ketones Negative Negative Urine Protein Negative Negative Urine Leukocytes Negative Negative Urine Blood Negative Negative Urine Nitrite Negative Negative Urine Bilirubin Negative Negative Urine Glucose Negative Negative CBC Auto Diff 05/24/2017 White Blood Count 3.4 10^3/uL Low 3.5-10.8 14 Red Blood Count 3.50 10^6/uL Low 4.0-5.4 [...] Egfr Non- 121.2 >60 Egfr 155.8 >60 15 Laboratory test finding 05/24/2017 Lipase 28 U/L 11.0-82.0 C Reactive Protein < 1.00 mg/L < 5.00 16 Lactic Acid 2.3 mmol/L High 0.5-2.0 17 Laboratory test finding 04/06/2017 Lipase 43 U/L 11.0-82.0 C Reactive Protein < 1.00 mg/L < 5.00 18 Comp Metabolic Panel 04/06/2017 Sodium 136 mmol/L [...] Egfr Non- 123.7 >60 Egfr 159.1 >60 19 Potassium 3.9 mmol/L 3.5-5.0 Anion Gap 9 mmol/L 2-11 Ast 294 U/L High 13-39 Laboratory test finding 04/06/2017 Lactic Acid 1.7 mmol/L 0.5-2.0 20 CBC Auto Diff 04/06/2017 White Blood Count [...] 0-2 Nucleated Red Blood Cells % 0 Laboratory test finding 04/06/2017 C Difficile PCR SEE RESULT BELOW 21 Stool Culture SEE RESULT BELOW 22 Ecto-Parasite Identification <pending> Parasitic Examination See Comment 23 Urinalysis Profile 04/06/2017 Urine Color Straw Urine Appearance Clear Urine Specific Show Low 1.005 Low 1.010-1.030 Urine pH 7.0 5-9 Urine Urobilinogen Negative Negative Urine Ketones Negative Negative Urine Protein Negative Negative Urine Leukocytes Negative Negative Urine Blood Negative Negative Urine Nitrite Negative Negative Urine Bilirubin Negative Negative Urine Glucose Negative Negative Toxassure Select 13 (MW) 02/10/2017 Report Summary FINAL 24 PDF . Laboratory test 02/10/2017 PDF [id number] SEE IMAGE finding Chlamydia/GC 08/13/2016 Chlamydia trachomatis, Negative Negative , 26 Amplification Janie Neisseria gonorrhoeae, Janie Negative Negative , 27 Laboratory test finding 06/25/2016 PDF [id number] SEE IMAGE Toxassure(R) Select 13 (MW) 06/25/2016 Report Summary FINAL 28 PDF . Complete Blood Count 06/25/2016 WBC 4.4 x10^3/UL 3.6-9.6 RBC 3.59 x10^6/UL Low 3.90-5.70 HGB 11.7 g/dL Low 12.1-17.2 HCT 34 % Low 36-50 MCV 95.0 fL 82.2-97.4 MCH 32.6 pg 27.6-33.3 MCHC 34.3 g/dL 33.0-35.5 RDW 13.4 % 11.6-13.7 PLT 297 x10^3/UL 150-400 MPV 6.7 fL Low 7.4-10.4 Gran # 2.5 x10^3/UL 1.5-7.2 Lymph# 1.6 x10^3/UL 0.7-4.9 Stoddard# 0.3 x10^3/UL 0.1-0.9 Gran % 54.6 % 42.2-75.2 Lymph % 38.2 % 20.5-51.1 Stoddard% 7.2 % 1.7-9.3 Lipid Profile 06/25/2016 Cholesterol 177 mg/dL 120-200 Triglycerides 79 mg/dL 30-200 HDL Cholesterol 102 mg/dL High 30-85 29 LDL (Calculated) 59 CALC 0-129 VLDL Cholesterol [...] ml/min/1.73m^ >=60 Laboratory test finding 07/15/2015 PDF [id number] SEE IMAGE Pap HPV High Risk 07/15/2015 Diagn See Comment: 30 Adeq See Comment: 31 Cicd10 See Comment: 32 Perfor See Comment: 33 QC Rev See Comment: 34 Comm . Note See Comment: 35 Iglbp See Comment: 36 HPV, high-risk Negative Negative 37 Ua - Non Micro (Fma) 07/15/2015 Appearance yellow Color clear Glucose, Urine (Fma/CMC/CTX) neg Bilirubin neg Ketones neg SP Grav 1.020 Blood neg PH 7.5 Protein neg Urobil 0.2 Nitrite neg Leukocytes (Fma/CMC/Centrex) neg Lipid Profile 07/15/2015 Cholesterol 168 mg/dL 120-200 Triglycerides 109 mg/dL 30-200 HDL Cholesterol 97 mg/dL High 30-85 38 LDL (Calculated) 49 CALC 0-129 VLDL Cholesterol [...] x10^3/UL 3.6-9.6 RBC 3.85 x10^6/UL Low 3.90-5.70 39 HGB 12.7 g/dL 12.1-17.2 HCT 37 % 36-50 MCV 97.0 fL 82.2-97.4 MCH 33.0 pg 27.6-33.3 MCHC 34.2 g/dL 33.0-35.5 RDW 13.3 % 11.6-13.7 PLT 272 x10^3/UL 150-400 MPV 7.6 fL 7.4-10.4 Gran # 2.2 x10^3/UL 1.5-7.2 Lymph# 2.5 x10^3/UL 0.7-4.9 Stoddard# 0.3 x10^3/UL 0.1-0.9 Gran % 42.7 % 42.2-75.2 Lymph % 50.9 % 20.5-51.1 Stoddard% 6.4 % 1.7-9.3 Laboratory test finding 07/15/2015 PDF [id number] SEE IMAGE 40 Toxassure(R) Select 13 (MW) 07/15/2015 Report Summary FINAL 40, 41 PDF . 40 Laboratory test 07/15/2015 RPR Non Reactive Non Reactive 40 finding Panel [id number] Nys PT 07/15/2015 HIV 1/O/2 <1.00 <1.00 40, 42 Only Abs-Index Value HIV 1/O/2 Abs, Qual Non Reactive Non Reactive 40 Chlamydia/GC Amplification 07/15/2015 Chlamydia trachomatis, Negative Negative 40 Janie Neisseria gonorrhoeae, Janie Negative Negative 40 Please note: See Comment: 40, 43 Hepatitis Panel, Acute 07/15/2015 Hep A Ab, IgM Negative Negative 40 HBsAg Screen Negative Negative 40 Hep B Core Ab, IgM Negative Negative 40 Hep C Virus Ab <0.1 s/coratio 0.0-0.9 40, 44 Comprehensive Metabolic Prof 01/14/2015 Sodium 139 mEq/L [...] Lyme IgG/IgM Ab <0.91 ISR 0.00- 0.90 45 Lyme Disease Ab, Quant, IgM <0.80 index 0.00-0.79 46 CBC Electronic (Fma) 01/14/2015 WBC 5.6 3.6-9.6 RBC 3.81 Low [...] Protein neg Urobil 1.0 Nitrite neg Leukocytes (a[place] [place]Centrex[place] neg Laboratory test finding 07/23/2014 Hemoglobin A1c (a[place] [place] 5.1 % 4.1- 5.7 Microalb, Random (a/CMC/CTX) [...] 3.2 x10^3/UL 1.5-7.2 Lymph# 1.8 x10^3/UL 0.7-4.9 Stoddard# 0.2 x10^3/UL 0.1-0.9 Gran % 58.4 % 42.2-75.2 Lymph % 36.3 % 20.5-51.1 Stoddard% 5.3 % 1.7-9.3 Laboratory test finding 07/23/2014 [...] 17 mg/dL 6-26 Creatinine 0.6 mg/dL 0.6-1.4 47 BUN/Creat Ratio 28.3 CALC 8.0-36.0 Calcium 8.7 mg/dL 8.6-10.2 Total Protein 6.7 g/dL 6.4-8.3 Albumin 3.9 g/dL 3.8-5.5 Globulin 2.8 g/dL 2.0-4.8 A/G Ratio 1.4 CALC 0.6-2.3 Alk. Phosphatase 45 U/L 30-110 Alt (SGPT) 11 U/L 7-35 Ast (Sgot) 20 U/L 5-34 Total Bilirubin 0.7 mg/dL 0.2-1.3 1 RESULTS VERIFIED BY REPEAT ANALYSIS 2 RESULTS VERIFIED BY REPEAT ANALYSIS 3 RESULTS VERIFIED BY REPEAT ANALYSIS 4 KEEP AT ROOM TEMP 5 Negative <36.0 Equivocal 36.0 - 43.9 Positive >43.9 6 Hepatitis A, Hepatitis C and HIV antibodies may cross-react with this assay. Negative < 9.0 Equivocal 9.0 - 10.9 Positive >10.9 7 Negative <18.0 Equivocal 18.0 - 21.9 Positive >21.9 8 Negative <18.0 Equivocal 18.0 - 21.9 Positive >21.9 9 EBV Interpretation Chart Interpretation EBV-IgM EA(D)-IgG VCA-IgG EBNA-IgG EBV Seronegative - - - - Early Phase + - - - Acute Primary + +or- + - Infection Convalescence/Past - +or- + + Infection Reactivated +or- + + + Infection + Antibody Present - Antibody Absent 10 Negative: < 0.8 Indeterminate: 0.8 - 0.9 Positive: > 0.9 The CDC recommends that a positive HCV antibody result be followed up with a HCV Nucleic Acid Amplification test (451498). 11 Client Requested Flag Negative <0.60 Equivocal 0.60 - 0.69 Positive >0.69 12 Negative <30.0 Equivocal 30.0 - 34.9 Positive >34.9 A positive result is generally indicative of acute infection, reactivation or persistent IgM production. 13 SEE RESULT BELOW Name: JEMIMA ZAMUDIO : [address]: Zane Shirley MD Acct: [id number] Unit: [id number] AGE: 36 Location: ED Re05/24/17 SEX: F Status: DEP ER SPEC: [id number] RADHA: 05/24/17-[address] [facility] [address]: Zane Shirley MD REQ: [id number] RECD: 05/24/177542 STATUS: ORTIZ LOBATO DR: Sara Munguia MD [...] performed at Main Lab DEPARTMENT OF PATHOLOGY, [address] [place] [address] Salvador Amezcua M.D. Director PAPITONH # [id number] Patient: JEMIMA ZAMUDIO Brian [id number] (Continued) Specimen: [id number] Collected: 05/24/17-1513 Received: 05/24/17-1542 (Continued) Procedure Result Reported Site Shiga Toxin 1 2 Final (continued) 05/25/17- 08 C. difficile PCR Final 05/24/17- 163 ML Organism 1 027 Presumptive NEGATIVE Organism 2 Toxigenic C.diff NEGATIVE * ML - MAIN LAB ([facility]) . END OF REPORT * ML=Testing performed at Main Lab DEPARTMENT OF PATHOLOGY, [address] [place] [address] Salvador Amezcua M.D. Director [facility] # [id number] 14 Consistent with previous results on 04/06/17. 15 Because ethnic data is not always readily [...] 15-29 5 Kidney failure <15 (or dialysis) 16 Acute inflammation: >10.00 17 Critical Result LACT:2.3 Called to JASE CARVALHO at: 14:02:16 by: Read back by:JASE CARVALHO [facility] Severe Sepsis and Septic Shock Management Bundle Measure requires all lactic acids initially measuring >2.0 mmol/L be repeated. 18 Acute inflammation: >10.00 19 Because ethnic data is not always readily [...] 15-29 5 Kidney failure <15 (or dialysis) 20 [facility] Severe Sepsis and Septic Shock Management Bundle Measure requires all lactic acids initially measuring >2.0 mmol/L be repeated. 21 SEE RESULT BELOW Name: JEMIMA ZAMUDIO : [address]: Zane Shirley MD Acct: [id number] Unit: [id number] AGE: 36 Location: ED Re04/06/17 SEX: F Status: DEP ER SPEC: [id number] RADHA: 04/06/[address]: Zane Shirley MD REQ: [id number] RECD: 04/06/17 STATUS: ORTIZ LOBATO DR: Sara Munguia MD _ SOURCE: STOOL SPDESC: ORDERED: Yaw Garrido P: Shay/Duyen Procedure Result Reported Site Stool Specimen Description Final 04/06/17- 1254 ML Stool Color Light Brown Stool Form Nonformed Stool Consistency Soft C. difficile PCR Final 04/06/17- 1407 ML Organism 1 027 Presumptive NEGATIVE Organism 2 Toxigenic C.diff POSITIVE O P: Giardia/Cryptospor Screen Final 04/06/17- 1403 ML Organism 1 Neg Cryptosporidium/Giardia Giardia and cryptosporidium antigen testing performed by enzyme immunoassay. If patient is immunocompromised or has traveled to or is from a developing country, a full ova and parasite exam with microscopic (OPMIC) is recommended. All samples will be held one month in case full ova and parasite testing is requested. Contact the Microbiology Department at [phone]. TEST LIMITATIONS: As with all diagnostic procedures, [...] performed at Main Lab DEPARTMENT OF PATHOLOGY, [address] [place] [address] Salvador Amezcua M.D. Director [facility]AP[facility] # [id number] Patient: JEMIMA ZAMUDIO Brian [id number] (Continued) Specimen: [id number] Collected: 04/06/17-1220 Received: 04/06/17-1238 (Continued) Procedure Result Reported Site O P: [...] not recommended. * ML - MAIN LAB ([facility]) . END OF REPORT * ML=Testing performed at Main Lab DEPARTMENT OF PATHOLOGY, [address] [place] [address] Salvador Amezcua M.D. Director AZRA # [id number] 22 SEE RESULT BELOW Name: JEMIMA ZAMUDIO : [address]: Zane Shirley MD Acct: [id number] Unit: [id number] AGE: 36 Location: ED Re04/06/17 SEX: F Status: DEP ER SPEC: [id number] RADHA: 04/06/[address]: Zane Shirley MD REQ: [id number] RECD: 04/06/17 STATUS: ORTIZ LOBATO DR: Sara [...] ON NEXT PAGE * ML=Testing performed at [facility] DEPARTMENT OF PATHOLOGY, [address] [place] [address] Salvador Amezcua M.D. Director [facility] # [id number] Patient: KARENJEMIMA JORGE [id number] (Continued) Specimen: [id number] Collected: 04/06/17 Received: 04/06/17 (Continued) Procedure Result Reported Site Shiga Toxin 1 2 Final (continued) 04/07/171135 * ML - MAIN LAB ([facility]) . END OF REPORT * ML=Testing performed at Main Lab DEPARTMENT OF PATHOLOGY, [address] [place] [address] Salvador Amezcua M.D. Director [facility] # [id number] 23 SOURCE: STOOL PARASITIC EXAMINATION FINAL No parasites seen. Cryptosporidium, Cyclospora, and microsporidia are not readily detected by this method. Single negative specimen does not rule out parasitic infection. Test Performed by: [place] [address] 24 TOXASSURE SELECT 13 (MW) Test Result Flag Units Drug Present and Declared for Prescription Verification Oxycodone 8039 EXPECTED ng/mg creat Oxymorphone 1410 EXPECTED ng/mg creat Noroxycodone >12091 EXPECTED ng/mg creat Noroxymorphone 544 EXPECTED ng/mg [...] Nicotine For clinical consultation, please call . 25 SRC:<Blank> 1URINE APTIMA 26 Source of Specimen: <Blank> 1URINE APTIMA 27 Source of Specimen: <Blank> 1URINE APTIMA 28 TOXASSURE SELECT 13 (MW) Test Result Flag [...] provided. For clinical consultation, please call . 29 consistent w/ previous results 30 NEGATIVE FOR INTRAEPITHELIAL LESION AND MALIGNANCY. THIS SPECIMEN WAS RESCREENED PART OF OUR DAIRY WORKER PROGRAM. 31 Satisfactory for evaluation. No endocervical component is identified. The absence of an endocervical component was confirmed by an additional screening evaluation. 32 Z12.4 33 Perez Riojas, Cigarette Vendor ([facility]) 34 Esteban Saleem, Cigarette Vendor ([facility]) 35 The Pap smear is a screening test designed to aid in the detection of premalignant and malignant conditions of the uterine cervix. It is not a diagnostic procedure and should not be used as the sole means of detecting cervical cancer. Both false-positive and false-negative reports do occur. 36 This liquid based ThinPrep(R) pap test was screened with the use of an image guided system. 37 This high-risk HPV test detects thirteen high-risk types (16/18/31/33/35/39/45/51/52/56/58/59/68) without differentiation. 38 RESULTS VERIFIED BY REPEAT ANALYSIS 39 consistent w/ previous results 40 2 ssts 41 TOXASSURE SELECT 13 (MW) Test Result Flag [...] provided. For clinical consultation, please call . 42 Index Value: Specimen reactivity relative to the negative cutoff. 43 Acceptable specimens for this test are male urethral swab, endocervical swab and liquid based pap specimens, vaginal swabs in APTIMA transports and first void urine. See online Directory of Services for test number for rectal and pharyngeal specimens. 44 Negative: < 0.8 Indeterminate: 0.8 - 0.9 Positive: > 0.9 In order to reduce the incidence of a false positive result, the CDC recommends that all s/co ratios between 1.0 and 10.9 be confirmed by a more specific supplemental or PCR testing. [facility] Ab w/Reflex to Verification test #[id number]. 45 Negative <0.91 Equivocal 0.91 - 1.09 Positive >1.09 46 Negative <0.80 Equivocal 0.80 - 1.19 Positive >1.19 IgM levels may peak at 3-6 weeks post infection, then gradually decline. 47 RESULTS VERIFIED BY REPEAT ANALYSIS Procedures Description No Information Encounters Type Date Location Provider CPT E/M Dx Office Visit 06/08/2017 2:15p [facility] [place] [address] R94.5 R10.30 R19.7 Office Visit 04/21/2017 11:30a [place] [address] T36.8x5A A04.72 Office Visit 04/14/2017 2:00p [place] [address] A04.72 Office Visit 04/07/2017 3:00p [place] [address] A04.72 Office Visit 04/06/2017 2:30p Main Office Sara Munguia M.D. 01895 Z11.1 Office Visit 02/10/2017 4:00p Main Office Sara Munguia M.D. 33536 F31.9 M79.7 Office Visit 11/09/2016 4:30p Main Office Sara Munguia M.D. 58362 F31.9 M79.7 Office Visit 08/12/2016 7:20p Main Office Sara Munguia M.D. 93368 F31.9 L93.1 Z20.2 M79.7 M54.5 F17.210 H35.89 Z71.6 Office Visit 06/22/2016 10:40a Main Office Sara Munguia M.D. 00694 M79.7 F31.9 M25.512 L93.1 Office Visit 03/12/2016 4:30p Main Office Sara Munguia M.D. 33642 Z11.1 Office Visit 03/04/2016 7:10p Main Office Sara Munguia M.D. 19802 M79.7 F31.9 Office Visit 11/04/2015 4:30p Main Office Sara Munguia M.D. 09881 M79.7 F31.9 M25.512 L93.1 Office Visit 07/15/2015 8:00a Main Office Sara Munguia M.D. 63801 Z00.00 M79.7 F31.9 M25.512 N94.6 Z11.3 Office Visit 03/17/2015 4:40p Main Office Sara Munguia M.D. 85557 729.1 296.80 724.2 V04.81 Office Visit 01/14/2015 3:00p Main Office Sara Munguia M.D. 74787 782.7 296.80 729.1 305.1 Office Visit 08/29/2014 6:00p Main Office Sara Munguia M.D. 51236 296.80 729.1 719.41 305.1 Office Visit 07/23/2014 10:50a Main Office Sara Munguia M.D. 57756 250.00 296.80 719.41 729.1 724.2 Plan of Care Future Appointment(s):06/30/2017 8:00 am - Sara Munguia M.D. at Main Hfkmat3209/2017 4:00 pm - Sara Munguia M.D. at [facility] Juwafi2506/21/2017 - Sara Munguia M.D.R19.7 Diarrhea, unspecifiedNew Labs:C Difficile PCRStool CultureComments:; recheck labs, had cdiff in Novrefer to GI for follow up for persistent rjrhxktrJ80.9 Bipolar disorder, unspecifiedComments:off medication, try melatonin at bedtime instead for sleepFollow up:has physical in .7 FibromyalgiaComments:continue rwwaabgjiQ56.1 Subacute cutaneous lupus sghkdbcqmvpdbL97.9 Alcoholic liver disease, unspecifiedComments:fatty liver on US, advised to cut back on alcohol use, can recommend programs to helpAllComments:~B_~U_Medication Management~b_~u_ Patient Understands medications she's taking? Yes No Are there Barriers to Adherence? Yes No Has the patient been asked about herbal supplements and therapies, and OTC meds? Yes No
[2017-07-18 09:47] LABS: ABS Basophils 0 10^3/ul (0-0.2); ABS Eosinophils 0.1 10^3/ul (0-0.6); ABS Monocytes 0.3 10^3/ul (0-0.8); ABS Nucleated RBC 0 10^3/ul; Eosinophil % 1.2 % (0-6); Hematocrit 36 % (35-47); Hemoglobin 12.3 g/dl (12.0-16.0); Lymphocyte % 23.5 % (25-47); Mean Corpuscular HGB Conc 34 g/dl (31-36); Mean Corpuscular Hemoglobin 34 pg (27-31); Mean Corpuscular Volume 99 fL (80-97); Mean Platelet Volume 8 um3 (7.4-10.4); Nucleated Red Blood Cells % 0.1; Platelet Count 269 10^3/ul (150-450); Red Cell Distribution Width 13 % (10.5-15); White Blood Count 4.4 10^3/ul (3.5-10.8)
[2017-07-18 09:53] LABS: Urine Appearance Clear; Urine Blood Negative (Negative); Urine Color Straw; Urine Ketones Negative (Negative); Urine Protein Negative (Negative); Urine Specific Gravity 1.005 (1.010-1.030); Urine Urobilinogen Negative (Negative)
[2017-07-18 10:06] LABS: EGFR Non-African American 109.2 (>60)
[2017-07-18 10:07] LABS: INR 1.01 (0.77-1.02)
--- NOTE | 2017-07-18 18:24 | ED ---
Vanessa Ramsay Thomas, scribed for Brandt Buck MD on 07/18/17 at 0858 . GI/ HPI - HPI Summary HPI Summary: The patient is a 37 year old female with a history of C. diff (diagnosed in April 2017) presenting to the ED complaining of bright red blood in her stools that began this morning. She had an episode of bloody stools about a month ago. The patient has been dealing with mucous-y diarrhea. The patient has taken two rounds of Flagyl and finished her last course of antibiotics one week ago. She has an appointment with a insurance sales producer in the next week. The patient additionally complains of nausea and vomiting. She has been eating and urinating normally. She denies abdominal pain or cramping. - History of Current Complaint Chief Complaint: EDGIBleed Time Seen by Provider: 07/18/17 08:23 Stated Complaint: BLOODY STOOL Hx Obtained From: Patient Hx Last Menstrual Period: end january 2017 Onset/Duration: Started Hours Ago - this morning, Still Present Timing: Intermittent Severity: Moderate Pain Intensity: 2 Associated Signs and Symptoms: Positive: Other: - nausea, vomiting, BRB in stool , diarrhea, Alleviating Factor(s): Nothing - Allergy/Home Medications Allergies/Adverse Reactions: Allergies Allergy/AdvReac Type Severity Reaction Status Date / Time No Known Allergies Allergy Verified 07/18/17 08:09 PMH/Surg Hx/FS Hx/Imm Hx Previously Healthy: No Endocrine/Hematology History: Reports: Hx Diabetes Denies: Hx Thyroid Disease Cardiovascular History: Denies: Hx Hypertension, Hx Pacemaker/ICD Respiratory History: Reports: Hx Sleep Apnea - IN PAST, Musculoskeletal History: Reports: Hx Fibromyalgia Sensory History: Reports: Hx Contacts or Glasses - GLASSES Denies: Hx Deafness, Hx Hearing Aid Opthamlomology History: Reports: Hx Contacts or Glasses - GLASSES Neurological History: Reports: Hx Migraine - FEWxMONTH, USES OTC MEDS, Other Neuro Impairments/Disorders - Hx fibromyalgia Psychiatric History: Reports: Hx Anxiety, Hx Depression - ON MED, Hx Bipolar Disorder - manages with limotrigine, Other Psychiatric Issues/Disorders Denies: Hx Panic Disorder - Surgical History Surgery Procedure, Year, and Place: BREAST REDUCTION 2002, [facility]. GASTRIC BYPASS 2003, ". C SECTION 2011, [place]. C SECTION 2012 [facility] [place]. tonsilectomy. carpal tunnel surgery Hx Anesthesia Reactions: No Infectious Disease History: Yes Infectious Disease History: Reports: Hx Clostridium Difficile Denies: Hx Hepatitis, Hx Human Immunodeficiency Virus (HIV), Hx of Known/ Suspected MRSA, Hx Shingles, Hx Tuberculosis, Hx Known/Suspected VRE, Hx Known/ Suspected VRSA, History Other Infectious Disease, Traveled Outside the [place] in Last 30 Days - Family History Known Family History: Positive: Hypertension, Diabetes - Social History Occupation: Employed Full-time Alcohol Use: Weekly Alcohol Amount: 2 glasses of wine few days a week Hx Substance Use: No Substance Use Type: Reports: None Hx Tobacco Use: Yes Smoking Status (MU): Former Smoker Type: Cigarettes Amount Used/How Often: 6-7 cig/day Have You Smoked in the Last Year: Yes Review of Systems Negative: Fever Positive: Vomiting, Diarrhea, Nausea, Other - Bloody stools. Negative: Abdominal Pain All Other Systems Reviewed And Are Negative: Yes Physical Exam - Summary Physical Exam Summary: Appearance: The patient is well-nourished in no acute distress and in no acute pain. Skin: The skin is warm and dry and skin color reflects adequate perfusion. HEENT: The head is normocephalic and atraumatic. The pupils are equal and reactive. The conjunctivae are clear and without drainage. Nares are patent and without drainage. Mouth reveals moist mucous membranes and the throat is without erythema and exudate. The external ears are intact. The ear canals are patent and without drainage. The tympanic membranes are intact. Neck: the neck is supple with full range of motion and non-tender. There are no carotid bruits. There is no neck vein distension. Respiratory: Chest is non-tender. Lungs are clear to auscultation and breath sounds are symmetrical and equal. Cardiovascular: Heart is regular rate and rhythm. There is no murmur or rub auscultated. There is no peripheral edema and pulses are symmetrical and equal. Abdomen: The abdomen is soft and non-tender. There are normal bowel sounds heard in all four quadrants and there is no organomegaly palpated. Musculoskeletal: There is no back tenderness noted. Extremities are non-tender with full range of motion. There is good capillary refill. There is no peripheral edema or calf tenderness elicited. Neurological: Patient is alert and oriented to person, place and time. The patient has symmetrical motor strength in all four extremities. Cranial nerves are grossly intact. Deep tendon reflexes are symmetrical and equal in all four extremities. Psychiatric: The patient has an appropriate affect and does not exhibit any anxiety or depression. Triage Information Reviewed: Yes Vital Signs On Initial Exam: Initial Vitals Temp Pulse Resp BP Pulse Ox 99 F 101 20 153/92 100 07/18/17 08:05 07/18/17 08:05 07/18/17 08:05 07/18/17 08:05 07/18/17 08:05 Vital Signs Reviewed: Yes Diagnostics - Vital Signs Vital Signs Temp Pulse Resp BP Pulse Ox 07/18/17 08:05 99 F 101 20 153/92 100 - Laboratory Lab Results: Lab Results 07/18/17 07/18/17 07/18/17 Range/Units 09:28 09:28 09:28 WBC 4.4 (3.5-10.8) 10^3/ul RBC 3.60 L (4.0-5.4) 10^6/ul Hgb 12.3 (12.0-16.0) g/dl Hct 36 (35-47) % MCV 99 H (80-97) fL MCH 34 H (27-31) pg MCHC 34 (31-36) g/dl RDW 13 (10.5-15) % Plt Count 269 (150-450) 10^3/ul MPV 8 (7.4-10.4) um3 Neut % (Auto) 68.7 (38-83) % Lymph % (Auto) 23.5 L (25-47) % [place] % (Auto) 6.2 (1-9) % Eos % (Auto) 1.2 (0-6) % Baso % (Auto) 0.4 (0-2) % Absolute Neuts (auto) 3.0 (1.5-7.7) 10^3/ul Absolute Lymphs (auto) 1.0 (1.0-4.8) 10^3/ul Absolute Monos (auto) 0.3 (0-0.8) 10^3/ul Absolute Eos (auto) 0.1 (0-0.6) 10^3/ul Absolute Basos (auto) 0 (0-0.2) 10^3/ul Absolute Nucleated RBC 0 10^3/ul Nucleated RBC % 0.1 INR (Anticoag Therapy) 1.01 (0.77-1.02) Sodium 133 (133-145) mmol/L Potassium 3.9 (3.5-5.0) mmol/L Chloride 101 (101-111) mmol/L Carbon Dioxide 25 (22-32) mmol/L Anion Gap 7 (2-11) mmol/L BUN 11 (6-24) mg/dL Creatinine 0.61 (0.51-0.95) mg/dL Est GFR ( Amer) 140.4 (>60) Est GFR (Non-Af Amer) 109.2 (>60) BUN/Creatinine Ratio 18.0 (8-20) Glucose 90 (70-100) mg/dL Lactic Acid (0.5-2.0) mmol/L Calcium 8.6 (8.6-10.3) mg/dL Total Bilirubin 0.80 (0.2-1.0) mg/dL AST 143 H (13-39) U/L ALT 81 H (7-52) U/L Alkaline Phosphatase 153 H (34-104) U/L C-Reactive Protein 1.73 (< 5.00) mg/L Total Protein 6.4 (6.4-8.9) g/dL Albumin 3.3 (3.2-5.2) g/dL Globulin 3.1 (2-4) g/dL Albumin/Globulin Ratio 1.1 (1-3) Lipase 16 (11.0-82.0) U/L Beta HCG, Quant < 0.60 mIU/mL Urine Color Urine Appearance Urine pH (5-9) Ur Specific [place] (1.010-1.030) Urine Protein (Negative) Urine Ketones (Negative) Urine Blood (Negative) Urine Nitrate (Negative) Urine Bilirubin (Negative) Urine Urobilinogen (Negative) Ur Leukocyte Esterase (Negative) Urine Glucose (Negative) 07/18/17 07/18/17 Range/Units 09:28 09:28 WBC (3.5-10.8) 10^3/ul RBC (4.0-5.4) 10^6/ul Hgb (12.0-16.0) g/dl Hct (35-47) % MCV (80-97) fL MCH (27-31) pg MCHC (31-36) g/dl RDW (10.5-15) % Plt Count (150-450) 10^3/ul MPV (7.4-10.4) um3 Neut % (Auto) (38-83) % Lymph % (Auto) (25-47) % [place] % (Auto) (1-9) % Eos % (Auto) (0-6) % Baso % (Auto) (0-2) % Absolute Neuts (auto) (1.5-7.7) 10^3/ul Absolute Lymphs (auto) (1.0-4.8) 10^3/ul Absolute Monos (auto) (0-0.8) 10^3/ul Absolute Eos (auto) (0-0.6) 10^3/ul Absolute Basos (auto) (0-0.2) 10^3/ul Absolute Nucleated RBC 10^3/ul Nucleated RBC % INR (Anticoag Therapy) (0.77-1.02) Sodium (133-145) mmol/L Potassium (3.5-5.0) mmol/L Chloride (101-111) mmol/L Carbon Dioxide (22-32) mmol/L Anion Gap (2-11) mmol/L BUN (6-24) mg/dL Creatinine (0.51-0.95) mg/dL Est GFR ( Amer) (>60) Est GFR (Non-Af Amer) (>60) BUN/Creatinine Ratio (8-20) Glucose (70-100) mg/dL Lactic Acid 2.0 (0.5-2.0) mmol/L Calcium (8.6-10.3) mg/dL Total Bilirubin (0.2-1.0) mg/dL AST (13-39) U/L ALT (7-52) U/L Alkaline Phosphatase (34-104) U/L C-Reactive Protein (< 5.00) mg/L Total Protein (6.4-8.9) g/dL Albumin (3.2-5.2) g/dL Globulin (2-4) g/dL Albumin/Globulin Ratio (1-3) Lipase (11.0-82.0) U/L Beta HCG, Quant mIU/mL Urine Color Straw Urine Appearance Clear Urine pH 7.0 (5-9) Ur Specific [place] 1.005 L (1.010-1.030) Urine Protein Negative (Negative) Urine Ketones Negative (Negative) Urine Blood Negative (Negative) Urine Nitrate Negative (Negative) Urine Bilirubin Negative (Negative) Urine Urobilinogen Negative (Negative) Ur Leukocyte Esterase Negative (Negative) Urine Glucose Negative (Negative) Result Diagrams: 07/18/17 09:28 07/18/17 09:28 Lab Statement: Any lab studies that have been ordered have been reviewed, and results considered in the medical decision making process. GIGU Course/Dx - Course Course Of Treatment: Ms. Rodrigues presented concerned because she saw blood with her mucousy stool. She has been having problems with mucousy stools for a few weeks. It started a more watery diarrhea and she was found to be positive for c. diff and treated. She got a bit better and then worse again and was treated a second time. Today she was negative for c. diff. Her labs were fine. She has external hemorrhoids which weren't bleeding when I saw her. She has an appointment with GI on and I recommended she keep that. We talked about pro and pre biotics. - Diagnoses Provider Diagnoses: Abdominal pain - Physician Notifications Discussed Care Of Patient With: Jarred Castle Time Discussed With Above Provider: 12:50 Instructed by Provider To: Other - I consulted with Dr. Castle regarding patient care. Discharge - Discharge Plan Condition: Stable Disposition: HOME Patient Education Materials: Abdominal Pain (ED) Forms: *Work Release Referrals: Sara Munguia MD [Primary Care Provider] - If Needed Additional Instructions: Follow up with gastroenterology on , 07/21/17 as previously scheduled. Return to the emergency department for any new or worsening symptoms. The documentation as recorded by the Vanessa fiore Thomas accurately reflects the service I personally performed and the decisions made by me, Brandt Buck MD.
== END 2017-07-18 13:13 | disposition home or self-care (01) ==
LOC: ED 08:03
DX: R10.9 Unspecified abdominal pain (principal); R11.2 Nausea with vomiting, unspecified; K92.1 Melena; R19.7 Diarrhea, unspecified; Z32.02 Encounter for pregnancy test, result negative; E11.9 Type 2 diabetes mellitus without complications; M79.7 Fibromyalgia; G43.909 Migraine, unspecified, not intractable, without status migrainosus; F41.9 Anxiety disorder, unspecified; F31.9 Bipolar disorder, unspecified; Z98.84 Bariatric surgery status; Z90.89 Acquired absence of other organs; Z86.19 Personal history of other infectious and parasitic diseases; Z87.891 Personal history of nicotine dependence
CPT/HCPCS: 36415; 80053; 81003; 83605; 83690; 84702; 85025; 85610; 86140; 99282

== ENCOUNTER 2017-08-19 09:10 | Emergency (ER) | payer OTHER ==
[2017-08-19 09:46] LABS: ABS Basophils 0.1 10^3/ul (0-0.2); ABS Eosinophils 0 10^3/ul (0-0.6); ABS Monocytes 0.2 10^3/ul (0-0.8); ABS Neutrophils 2.1 10^3/ul (1.5-7.7); ABS Nucleated RBC 0 10^3/ul; Eosinophil % 0.8 % (0-6); Hematocrit 32 % (35-47); Hemoglobin 11.4 g/dl (12.0-16.0); Lymphocyte % 30.1 % (25-47); Mean Corpuscular HGB Conc 36 g/dl (31-36); Mean Corpuscular Hemoglobin 35 pg (27-31); Mean Corpuscular Volume 97 fL (80-97); Mean Platelet Volume 8 um3 (7.4-10.4); Nucleated Red Blood Cells % 0.2; Platelet Count 130 10^3/ul (150-450); Red Blood Count 3.29 10^6/ul (4.0-5.4); Red Cell Distribution Width 14 % (10.5-15); White Blood Count 3.5 10^3/ul (3.5-10.8)
--- NOTE | 2017-08-19 10:21 | RAD ---
HISTORY: Syncope COMPARISONS: None TECHNIQUE: Multiple contiguous axial CT scans were obtained of the head without intravenous contrast. FINDINGS: HEMORRHAGE/INFARCT: There is no hemorrhage or acute infarct. MASSES/SHIFT: There is no mass or shift. EXTRA-AXIAL SPACES: There are no extra-axial fluid collections. SULCI AND VENTRICLES: The sulci and ventricles are normal in size and position for the patient's stated age. CEREBRUM: There are no focal parenchymal abnormalities. BRAINSTEM: There are no focal parenchymal abnormalities. CEREBELLUM: There are no focal parenchymal abnormalities. VESSELS: The vessels are grossly normal. PARANASAL SINUSES: The paranasal sinuses are clear. ORBITS: The orbits are unremarkable. BONES AND SOFT TISSUE: No bone or soft tissue abnormalities are noted. OTHER: None IMPRESSION: NO ACUTE INTRACRANIAL PATHOLOGY.
--- NOTE | 2017-08-19 10:22 | RAD ---
HISTORY: Syncope COMPARISONS: None VIEWS: 1: frontal portable view of the chest at 10:00 AM FINDINGS: LINES AND TUBES: None. CARDIOMEDIASTINAL SILHOUETTE: The cardiomediastinal silhouette is normal for portable technique. PLEURA: The costophrenic angles are sharp. No pleural abnormalities are noted. LUNG PARENCHYMA: The lungs are clear. ABDOMEN: The upper abdomen is clear. There is no subphrenic gas. BONES AND SOFT TISSUES: No bone or soft tissue abnormalities are noted. IMPRESSION: NO ACTIVE CARDIOPULMONARY DISEASE.
[2017-08-19 11:06] LABS: Urine Appearance Clear; Urine Blood 3+ (Negative); Urine Color Yellow; Urine Ketones Negative (Negative); Urine Protein Negative (Negative); Urine Specific Gravity 1.011 (1.010-1.030); Urine Urobilinogen Negative (Negative)
[2017-08-19] MEDS ORDERED: LORazepam TAB(*) 1 MG PO ONE (11:48)
[2017-08-19 12:25] VITALS: BP 134/86
--- NOTE | 2017-08-19 18:09 | ED ---
Vanessa Ramsay Thomas, scribed for Harshad Wilkinson MD on 08/19/17 at 1031 . Syncope/Near Syncope - HPI Summary HPI Summary: The patient is a 37 year old female after a syncopal episode that occurred earlier today when she was at work. She had positive loss of consciousness. The patient has been dealing with dizziness and lightheadedness for months. She denies any nausea or vomiting today. - History Of Current Complaint Chief Complaint: EDSyncope Time Seen by Provider: 08/19/17 09:18 Hx Obtained From: Patient Onset/Duration: Lasting Hours - earlier today, Resolved Timing: Minutes Context: Witnessed Activity At Onset: Other - at work Associated Head Trauma: No Aggravating Factor(s): Nothing Alleviating Factor(s): Spontaneous Resolution Associated Signs And Symptoms: Other - Syncope, LOC, dizziness, lightheadedness ; NEGATIVE: N/V - Allergies/Home Medications Allergies/Adverse Reactions: Allergies Allergy/AdvReac Type Severity Reaction Status Date / Time No Known Allergies Allergy Verified 07/18/17 08:09 PMH/Surg Hx/FS Hx/Imm Hx Endocrine/Hematology History: Reports: Hx Diabetes Denies: Hx Thyroid Disease Cardiovascular History: Denies: Hx Hypertension, Hx Pacemaker/ICD Respiratory History: Reports: Hx Sleep Apnea - IN PAST, Musculoskeletal History: Reports: Hx Fibromyalgia Sensory History: Reports: Hx Contacts or Glasses - GLASSES Denies: Hx Deafness, Hx Hearing Aid Opthamlomology History: Reports: Hx Contacts or Glasses - GLASSES Neurological History: Reports: Hx Migraine - FEWxMONTH, USES OTC MEDS, Other Neuro Impairments/Disorders - Hx fibromyalgia Psychiatric History: Reports: Hx Anxiety, Hx Depression - ON MED, Hx Bipolar Disorder - manages with limotrigine, Other Psychiatric Issues/Disorders Denies: Hx Panic Disorder - Surgical History Surgery Procedure, Year, and Place: BREAST REDUCTION 2002, [facility]. GASTRIC BYPASS 2004, ". C SECTION 2012, [place]. C SECTION 2013 [facility] [place]. tonsilectomy. carpal tunnel surgery Hx Anesthesia Reactions: No Infectious Disease History: No Infectious Disease History: Reports: Hx Clostridium Difficile Denies: Hx Hepatitis, Hx Human Immunodeficiency Virus (HIV), Hx of Known/ Suspected MRSA, Hx Shingles, Hx Tuberculosis, Hx Known/Suspected VRE, Hx Known/ Suspected VRSA, History Other Infectious Disease, Traveled Outside the [place] in Last 30 Days - Family History Known Family History: Positive: Hypertension, Diabetes - Social History Alcohol Use: Weekly Alcohol Amount: 2 glasses of wine few days a week Hx Substance Use: No Substance Use Type: Reports: None Hx Tobacco Use: Yes Smoking Status (MU): Former Smoker Type: Cigarettes Amount Used/How Often: 6-7 cig/day Have You Smoked in the Last Year: Yes Review of Systems Negative: Fever Negative: Vomiting, Nausea Neurological: Other - LOC, dizziness, lightheadedness Positive: Syncope All Other Systems Reviewed And Are Negative: Yes Physical Exam - Summary Physical Exam Summary: VITAL SIGNS: Reviewed. GENERAL: Patient is a well-developed and nourished female who is lying comfortable in the stretcher. Patient is not in any acute respiratory distress. HEAD AND FACE: No signs of trauma. No ecchymosis, hematomas or skull depressions. No sinus tenderness. EYES: PERRLA, EOMI x 2, No injected conjunctiva, no nystagmus. EARS: Hearing grossly intact. Ear canals and tympanic membranes are within normal limits. MOUTH: Oropharynx within normal limits. NECK: Supple, trachea is midline, no adenopathy, no JVD, no carotid bruit, no c- spine tenderness, neck with full ROM. CHEST: Symmetric, no tenderness at palpation LUNGS: Clear to auscultation bilaterally. No wheezing or crackles. CVS: Regular rate and rhythm, S1 and S2 present, no murmurs or gallops appreciated. ABDOMEN: Soft, non-tender. No signs of distention. No rebound no guarding, and no masses palpated. Bowel sounds are normal. EXTREMITIES: FROM in all major joints, no edema, no cyanosis or clubbing. NEURO: Alert and oriented x 3. No acute neurological deficits. Speech is normal and follows commands. SKIN: Dry and warm Triage Information Reviewed: Yes Vital Signs On Initial Exam: Initial Vitals Temp Pulse Resp BP Pulse Ox 98.9 F 110 18 140/91 98 08/19/17 09:18 08/19/17 09:18 08/19/17 09:18 08/19/17 09:18 08/19/17 09:18 Vital Signs Reviewed: Yes Diagnostics - Vital Signs Vital Signs Temp Pulse Resp BP Pulse Ox 08/19/17 09:39 100 08/19/17 09:32 95 19 140/86 100 08/19/17 09:20 98 19 100 08/19/17 09:18 98.9 F 110 18 140/91 98 - Laboratory Lab Results: Lab Results 08/19/17 08/19/17 08/19/17 Range/Units 09:28 09:28 09:28 WBC (3.5-10.8) 10^3/ul RBC (4.0-5.4) 10^6/ul Hgb (12.0-16.0) g/dl Hct (35-47) % MCV (80-97) fL MCH (27-31) pg MCHC (31-36) g/dl RDW (10.5-15) % Plt Count (150-450) 10^3/ul MPV (7.4-10.4) um3 Neut % (Auto) (38-83) % Lymph % (Auto) (25-47) % [place] % (Auto) (1-9) % Eos % (Auto) (0-6) % Baso % (Auto) (0-2) % Absolute Neuts (auto) (1.5-7.7) 10^3/ul Absolute Lymphs (auto) (1.0-4.8) 10^3/ul Absolute Monos (auto) (0-0.8) 10^3/ul Absolute Eos (auto) (0-0.6) 10^3/ul Absolute Basos (auto) (0-0.2) 10^3/ul Absolute Nucleated RBC 10^3/ul Nucleated RBC % INR (Anticoag Therapy) 1.00 (0.77-1.02) APTT 31.4 (26.0-36.3) seconds Sodium 134 (133-145) mmol/L Potassium Pending Chloride 101 (101-111) mmol/L Carbon Dioxide 26 (22-32) mmol/L Anion Gap Pending BUN 11 (6-24) mg/dL Creatinine 0.67 (0.51-0.95) mg/dL Est GFR ( Amer) 126.0 (>60) Est GFR (Non-Af Amer) 98.0 (>60) BUN/Creatinine Ratio 16.4 (8-20) Glucose 80 (70-100) mg/dL Lactic Acid (0.5-2.0) mmol/L Calcium 8.3 L (8.6-10.3) mg/dL Magnesium 2.0 (1.9-2.7) mg/dL Total Bilirubin 1.30 H (0.2-1.0) mg/dL AST Pending ALT 72 H (7-52) U/L Alkaline Phosphatase 258 H (34-104) U/L Troponin I 0.01 (<0.04) ng/mL B-Natriuretic Peptide 129 H ( - 100) pg/mL Total Protein 6.3 L (6.4-8.9) g/dL Albumin 3.1 L (3.2-5.2) g/dL Globulin 3.2 (2-4) g/dL Albumin/Globulin Ratio 1.0 (1-3) TSH Pending Serum Alcohol Pending 08/19/17 08/19/17 Range/Units 09:28 09:28 WBC 3.5 (3.5-10.8) 10^3/ul RBC 3.29 L (4.0-5.4) 10^6/ul Hgb 11.4 L (12.0-16.0) g/dl Hct 32 L (35-47) % MCV 97 (80-97) fL MCH 35 H (27-31) pg MCHC 36 (31-36) g/dl RDW 14 (10.5-15) % Plt Count 130 L (150-450) 10^3/ul MPV 8 (7.4-10.4) um3 Neut % (Auto) 61.5 (38-83) % Lymph % (Auto) 30.1 (25-47) % [place] % (Auto) 5.7 (1-9) % Eos % (Auto) 0.8 (0-6) % Baso % (Auto) 1.9 (0-2) % Absolute Neuts (auto) 2.1 (1.5-7.7) 10^3/ul Absolute Lymphs (auto) 1.0 (1.0-4.8) 10^3/ul Absolute Monos (auto) 0.2 (0-0.8) 10^3/ul Absolute Eos (auto) 0 (0-0.6) 10^3/ul Absolute Basos (auto) 0.1 (0-0.2) 10^3/ul Absolute Nucleated RBC 0 10^3/ul Nucleated RBC % 0.2 INR (Anticoag Therapy) (0.77-1.02) APTT (26.0-36.3) seconds Sodium (133-145) mmol/L Potassium Chloride (101-111) mmol/L Carbon Dioxide (22-32) mmol/L Anion Gap BUN (6-24) mg/dL Creatinine (0.51-0.95) mg/dL Est GFR ( Amer) (>60) Est GFR (Non-Af Amer) (>60) BUN/Creatinine Ratio (8-20) Glucose (70-100) mg/dL Lactic Acid 2.0 (0.5-2.0) mmol/L Calcium (8.6-10.3) mg/dL Magnesium (1.9-2.7) mg/dL Total Bilirubin (0.2-1.0) mg/dL AST ALT (7-52) U/L Alkaline Phosphatase (34-104) U/L Troponin I (<0.04) ng/mL B-Natriuretic Peptide ( - 100) pg/mL Total Protein (6.4-8.9) g/dL Albumin (3.2-5.2) g/dL Globulin (2-4) g/dL Albumin/Globulin Ratio (1-3) TSH Serum Alcohol Result Diagrams: 08/19/17 09:28 08/19/17 09:28 Lab Statement: Any lab studies that have been ordered have been reviewed, and results considered in the medical decision making process. - Radiology CXR Xray Interpretation: No Acute Changes - No active cardiopulmonary disease. Dr. Wilkinson has reviewed this report. Radiology Interpretation Completed By: Radiologist - CT CT Brain CT Interpretation: No Acute Changes - No acute intracranial pathology. Dr. Wilkinson has reviewed this report. CT Interpretation Completed By: Radiologist - EKG 09:41 Cardiac Rate: Tachycardia EKG Rhythm: Sinus Tachycardia - at 102 BPM EKG Interpretation: No ST elevations. Normal axis. Course/Dx Assessment/Plan: The patient is a 37 year old female after a syncopal episode that occurred earlier today when she was at work. She had positive loss of consciousness. The patient has been dealing with dizziness and lightheadedness for months. She denies any nausea or vomiting today. Test results show a slight anemia and increased LFTs secondary to her alcoholism. Urinalysis is negative for UTI. I believe that the patient had a vasovagal syncope. The patient was hydrated and given Ativan for her anxiety. The patient requested material for detox programs. The patient was given Atarax for anxiety. She will follow up with primary care. The patient is hemodynamically stable and alert and oriented x 3. - Diagnoses Differential Diagnosis/HQI/PQRI: Positive: Dysrhythmia, Hyperventilation, Metabolic Reaction, Vasovagal Episode Provider Diagnoses: Vasovagal syncope Discharge - Discharge Plan Condition: Stable Disposition: HOME Prescriptions: hydrOXYzine HCL TAB* [Atarax 25 MG TAB*] 25 mg PO TID PRN #30 tab PRN Reason: Anxiety Patient Education Materials: Syncope (ED) Forms: *Work Release Referrals: Sara Munguia MD [Primary Care Provider] - 3 Days Additional Instructions: Follow up with your primary care physician in three days. Return to the emergency department for any new or worsening symptoms. The documentation as recorded by the Vanessa fiore Thomas accurately reflects the service I personally performed and the decisions made by , Harshad Wilkinson MD.
== END 2017-08-19 12:23 | disposition home or self-care (01) ==
LOC: ED 09:10
DX: R55 Syncope and collapse (principal); Z87.891 Personal history of nicotine dependence
CPT/HCPCS: 36415; 70450; 71045; 80053; 80307; 80320; 81003; 81015; 83605; 83735; 83880; 84443; 84484; 85025; 85610; 85730; 93005; 99283; A9270-GY; G0480

== ENCOUNTER 2017-08-28 13:06 | Emergency (ER) | payer OTHER ==
[2017-08-28 14:21] VITALS: BP 112/69
--- NOTE | 2017-08-28 15:47 | UC ---
Nikky Ramsay Jason, scribed for Alex Luke MD on 08/28/17 at 1506 . General HPI - HPI Summary HPI Summary: This patient is a 37 year old F presenting to [facility] with a chief complaint of lower extremity swelling since 2 days ago . The patient states Im on a bunch of new medicine since 9 days ago, and since 2 days ago my legs and feet started tingling and both legs are sore and swelling. Additionally, when she woke up this morning her left forearm was tingling. The patient left [facility] 9 days ago where she stayed for a week to detox from alcohol and pain medicine as she had been experiencing heart palpitations and GI sx. The patient rates the pain 7/10 in severity. Symptoms aggravated by nothing. Symptoms alleviated by nothing. Patient denies CP, and SOB - History of Current Complaint Chief Complaint: UCLowerExtremity Stated Complaint: SWELLING LOWER LEG Time Seen by Provider: 08/28/17 14:49 Hx Obtained From: Patient Hx Last Menstrual Period: 08/07/17 Onset/Duration: Sudden Onset, Lasting Days - since 2 days ago, Still Present Pain Intensity: 7 Associated Signs & Symptoms: Positive: Other - bilateral leg tingling and swelling. Negative: Chest Pain, SOB - Allergy/Home Medications Allergies/Adverse Reactions: Allergies Allergy/AdvReac Type Severity Reaction Status Date / Time No Known Allergies Allergy Verified 08/28/17 14:20 Home Medications: Home Medications Buprenorphine HCl/Naloxone HCl [Suboxone] 1 mis SL 08/28/17 [History] Cholecalciferol (Vitamin D3) [Vitamin D3] 1,000 unit PO 08/28/17 [History] Trazodone HCl 50 mg PO 08/28/17 [History] PMH/Surg Hx/FS Hx/Imm Hx Previously Healthy: No - fibromyalgia Endocrine History: Other - negative DM Other Endocrine History: . Cardiovascular History: Other - negative HTN Other Cardiovascular History: . - Surgical History Surgical History: Yes Surgery Procedure, Year, and Place: BREAST REDUCTION 2002, [facility]. GASTRIC BYPASS 2003, ". C SECTION 2011, [place]. C SECTION 2012 [facility]. tonsilectomy. carpal tunnel surgery - Family History Known Family History: Positive: Hypertension, Diabetes - Social History Alcohol Use: None Alcohol Amount: detox Substance Use Type: None Substance Use Comment - Amount & Last Used: oxy Smoking Status (MU): Former Smoker Type: Cigarettes Amount Used/How Often: 6-7 cig/day Have You Smoked in the Last Year: Yes Household Exposure Type: Cigarettes - Immunization History Most Recent Influenza Vaccination: decl Most Recent Tetanus Shot: 2014 Most Recent Pneumonia Vaccination: unkn Review of Systems Respiratory: Negative - SOB Cardiovascular: Negative - CP Musculoskeletal: Edema - bilateral pedal Neurological: Other - "tingling in both legs" All Other Systems Reviewed And Are Negative: Yes Physical Exam - Summary Physical Exam Summary: General: well-appearing, no pain distress Skin: warm, color reflects adequate perfusion, dry Head: normal Eyes: EOMI, MONICA ENT: normal Neck: supple, nontender Respiratory: CTA, breath sounds present Cardiovascular: RRR Abdomen: soft, nontender Bowel: present Musculoskeletal: strength/ROM intact, Bilateral pedal edema Neurological: sensory/motor intact, A&O x3, normal sensation Psychological: affect/mood appropriate Triage Information Reviewed: Yes Vital Signs: Initial Vital Signs Temp 98.1 F 08/28/17 14:16 Pulse 87 08/28/17 14:16 Resp 18 08/28/17 14:16 BP 112/69 08/28/17 14:16 Pulse Ox 100 08/28/17 14:16 Course/Dx - Course Course Of Treatment: NO SOB/CHEST PAIN. NO JAUNDICE. VSS. SUBOXONE CAN CAUSE EDEMA. WILL CHECK BLOOD WORK; CBC, CMP, LIPASE, BNP. F/U PMD; GET RECHECKED IF WORSE. - Differential Dx - Multi-Symptom Provider Diagnoses: EDEMA Discharge - Discharge Plan Condition: Stable Disposition: HOME Patient Education Materials: Leg Edema (ED), Edema (ED) Referrals: Sara Munguia MD [Primary Care Provider] - Additional Instructions: FOLLOW UP WITH YOUR DOCTOR. CALL TOMORROW TO ARRANGE FOLLOW UP. THE EDEMA MAY BE DUE TO THE SUBOXONE. ELEVATE YOUR LEGS AND AVOID SALTY FOODS. GET RECHECKED FOR ANY WORSENING OF YOUR CONDITION; SHORTNESS OF BREATH OR QUESTIONS OR CONCERNS. The documentation as recorded by the Nikky fiore Jason accurately reflects the service I personally performed and the decisions made by me, Alex Luke MD.
[2017-08-29 11:47] LABS: ABS Basophils 0 10^3/ul (0-0.2); ABS Eosinophils 0.1 10^3/ul (0-0.6); ABS Lymphocytes 1.7 10^3/ul (1.0-4.8); ABS Monocytes 0.5 10^3/ul (0-0.8); ABS Neutrophils 1.5 10^3/ul (1.5-7.7); ABS Nucleated RBC 0 10^3/ul; Eosinophil % 1.4 % (0-6); Hematocrit 31 % (35-47); Hemoglobin 10.7 g/dl (12.0-16.0); Lymphocyte % 44.3 % (25-47); Mean Corpuscular HGB Conc 34 g/dl (31-36); Mean Corpuscular Hemoglobin 34 pg (27-31); Mean Corpuscular Volume 100 fL (80-97); Mean Platelet Volume 9 um3 (7.4-10.4); Nucleated Red Blood Cells % 0.3; Platelet Count 299 10^3/ul (150-450); Red Blood Count 3.14 10^6/ul (4.0-5.4); Red Cell Distribution Width 14 % (10.5-15); White Blood Count 3.8 10^3/ul (3.5-10.8)
[2017-08-29 12:28] LABS: EGFR Non-African American 118.1 (>60)
--- NOTE | 2017-08-29 18:17 | UC ---
- Progress Note Progress Note: reviewed CMP non concerning results no change jazmyne 08/29/2017
--- NOTE | 2017-08-30 10:07 | UC ---
- Progress Note Progress Note: PLS NOTIFY PT. CBC SHOWS ANEMIA. FOLLOW-UP WITH PCP FOR MONITORING AND WORK-UP. - JAYY NESS MD
== END 2017-08-28 16:17 | disposition home or self-care (01) ==
LOC: UCEAST 13:06
DX: R60.0 Localized edema (principal); M79.7 Fibromyalgia; Z98.84 Bariatric surgery status; Z87.891 Personal history of nicotine dependence
CPT/HCPCS: 36415; 80053; 83690; 83880; 85025; 99211; G0463

== ENCOUNTER → 2017-12-15 06:37 | Day surgery (SDC) | payer OTHER ==
[~2017-12-15 06:37] MED LIST: Acetaminophen IV 1GM/100ML * 10 MG/ML VIAL IVPB ONE; Buffered Lidocaine 0.9% SYRIN* 5 ML/SYR SYRINGE INTRADERM ONE; Bupivacaine 0.25% SDV* 30 ML ONE; Dexamethasone IV* 4 MG/ML 1 ML (4 MG) IV SLOW PU ONE; Dexamethasone IV* 4 MG/ML 1 ML (4 MG) ONE; Famotidine IV* 10 MG/ML 2 ML (20 mg) IV ONE; Famotidine IV* 10 MG/ML 2 ML (20 mg) ONE; KETAMINE HCL* 50 MG/ML 10 ML VIAL ONE; Ketorolac INJ* 30 MG/ML 1 ML VIAL ONE; Midazolam* 1 MG/ML 2 ML VIAL (2 MG) ONE; Naloxone* 0.4 MG/ML 1 ML VIAL IV PRN; Propofol* 10 MG/ML 20 ML BTL IV PUSH ONE
--- NOTE | 2017-12-15 08:26 | OP ---
Operative Report - Blank - Operative Report Date of Operation: 12/15/17 Note: DATE OF OPERATION: 12/15/2017 - [facility] DATE OF : 1980 SURGEON: Esteban Bonds MD COMPLIANCE LEAD: JUANY Eng ANESTHESIOLOGIST: Dr. Del Toro. ANESTHESIA: Local MAC. PRE-OP DIAGNOSIS: Left carpal tunnel syndrome, Left Dequervains disease. POST-OP DIAGNOSIS: Left carpal tunnel syndrome, Left Dequervains disease. OPERATIVE PROCEDURE: Left open carpal tunnel release and Left Dequervains release. INDICATIONS: Rodney has progressive left carpal tunnel syndrome and more recently dequervains disease We talked about risks and benefits. She wanted to proceed. She understands there is a chance of radial nerve irritation at the Dequervains release site. ESTIMATED BLOOD LOSS: 2 mL. COMPLICATIONS: None. FINDINGS: As expected. DESCRIPTION OF PROCEDURE: Rodney was seen in the preoperative holding area. The correct side, site and the procedure were identified. We came back to the operating room. I anesthetized the operative area with 0.25% plain Marcaine. The arm was prepped and draped in usual fashion. The arm was exsanguinated with the Esmarch and the tourniquet was inflated to 250 mmHg. I made a 2 to 3 cm longitudinal incision in the standard location for an open carpal tunnel release. Dissection was carried down through the subcutaneous tissue and palmar fascia. Transverse carpal ligament was released off the radial aspect of the hook of the hamate. The release was completed distally and proximally I released the fascia and subcutaneous tissue and retracted this volarly and ulnarly and then under direct visualization I released the remainder of the transverse carpal ligament and distal antebrachial fascia to level several centimeters proximal to the wrist flexion crease. The release at this point was complete. Everything was looking good with absolutely no compression on the nerve. I irrigated out the wound. Skin was closed with 4-0 nylon suture. I made a transverse incision over the first dorsal compartment tendon sheath. Full thickness flaps were bluntly raised off the tendon sheath and the radial sensory nerve was retracted. I then longitudinally incised the first dorsal compartment tendon sheath along its dorsal margin in line with the tendons. An accessory compartment was not present. The tendons were completely freed. The tenosynovitis was excised. The skin was closed with 4-0 monocryl and steri- strips. The wound was dressed, tourniquet deflated, and the patient was taken to the recovery room in stable condition.
[2017-12-15 08:30] VITALS: BP 157/97
== END | disposition home or self-care (01) ==
LOC: OREAST 06:37
PROVIDERS: ATTEND Orthopaedic Surgery Hand Surgery
DX: G56.02 Carpal tunnel syndrome, left upper limb (principal); M65.4 Radial styloid tenosynovitis [de Quervain]; I10 Essential (primary) hypertension; M79.7 Fibromyalgia; F41.8 Other specified anxiety disorders; Z87.891 Personal history of nicotine dependence; Z68.31 Body mass index [BMI] 31.0-31.9, adult; F11.11 Opioid abuse, in remission
CPT/HCPCS: 81025; J1100; J1885; J2250; J2704

== ENCOUNTER 2019-01-31 16:41 | Emergency (ER) | payer OTHER ==
[2019-01-31 16:59] VITALS: BP 134/92
--- NOTE | 2019-01-31 17:40 | UC ---
Throat Pain/Nasal Thor HPI - HPI Summary HPI Summary: 38-year-old female presents with 10-14 day history of intermittent sore throat. She states that the sore throat seems to be worse at night. She has had a couple episodes of hoarse voice as well. Associated with mild nasal congestion. Denies fever, chills, ear pain, dysphagia, cough, abdominal pain, nausea, or vomiting. - History of Current Complaint Chief Complaint: UCRespiratory Stated Complaint: SORE THROAT Time Seen by Provider: 01/31/19 17:03 Hx Obtained From: Patient Hx Last Menstrual Period: one week ago Pain Intensity: 4 - Allergies/Home Medications Allergies/Adverse Reactions: Allergies Allergy/AdvReac Type Severity Reaction Status Date / Time No Known Allergies Allergy Verified 01/31/19 16:59 PMH/Surg Hx/FS Hx/Imm Hx Previously Healthy: Yes Psychological History: Bipolar Disorder - Surgical History Surgical History: Yes Surgery Procedure, Year, and Place: BREAST REDUCTION 2002, [facility]. GASTRIC BYPASS 2003, ". C SECTION 2011, [place]. C SECTION 2012 [facility] [place]. tonsilectomy. carpal tunnel surgery, bilright 2012, left 2018 - Family History Known Family History: Positive: Hypertension, Diabetes - Social History Occupation: Unemployed Lives: With Family Alcohol Use: None Alcohol Amount: detox Substance Use Type: None Substance Use Comment - Amount & Last Used: oxy Smoking Status (MU): Former Smoker Type: Cigarettes Amount Used/How Often: 6-7 cig/day Have You Smoked in the Last Year: Yes When Did the Patient Quit Smoking/Using Tobacco: 02/01/2017 Household Exposure Type: Cigarettes - Immunization History Most Recent Influenza Vaccination: decl Most Recent Tetanus Shot: 2013 Most Recent Pneumonia Vaccination: unkn Review of Systems All Other Systems Reviewed And Are Negative: Yes Constitutional: Negative: Fever, Chills Eyes: Negative: Drainage, Eye Redness ENT: Positive: Sore Throat, Sinus Congestion. Negative: Ear Ache, Nasal Discharge, Sinus Pain/Tenderness Respiratory: Negative: Cough Cardiovascular: Negative: Chest Pain Gastrointestinal: Negative: Abdominal Pain, Vomiting, Nausea Genitourinary: Positive: Negative Musculoskeletal: Positive: Negative Neurological: Positive: Negative Is Patient Immunocompromised?: No Physical Exam - Summary Physical Exam Summary: GENERAL APPEARANCE: Well developed, well nourished, alert and cooperative, and appears to be in no acute distress. EYES: Conjunctiva clear. No drainage. EARS: External auditory canals and tympanic membranes clear, hearing grossly intact. NOSE: Mild nasal congestion. No nasal discharge. THROAT: Pharyngeal cobblestoning. No tonsilar inflammation, swelling, exudate, or lesions. Uvula midline. NECK: Neck supple, non-tender without lymphadenopathy. CARDIAC: Normal S1 and S2. No S3, S4 or murmurs. Rhythm is regular. There is no peripheral edema, cyanosis or pallor. Extremities are warm and well perfused. Capillary refill is less than 2 seconds. Peripheral pulses intact. LUNGS: Clear to auscultation without rales, rhonchi, wheezing or diminished breath sounds. ABDOMEN: Positive bowel sounds. Soft, nondistended, nontender. No guarding or rebound. No masses or hepatosplenomegally. MUSKULOSKELETAL: ROM intact to all extremities. No joint erythema or tenderness. Normal muscular development. Normal gait. SKIN: Skin normal color, texture and turgor with no lesions or eruptions. Triage Information Reviewed: Yes Vital Signs: Initial Vital Signs Temp 98.7 F 01/31/19 16:57 Pulse 83 01/31/19 16:57 Resp 12 01/31/19 16:57 BP 134/92 01/31/19 16:57 Pulse Ox 98 01/31/19 16:57 Vital Signs Reviewed: Yes Throat Pain/Nasal Course/Dx - Course Course Of Treatment: 38-year-old female presents with 10-14 day history of intermittent sore throat. She states that the sore throat seems to be worse at night. She has had a couple episodes of hoarse voice as well. Associated with mild nasal congestion. Denies fever, chills, ear pain, dysphagia, cough, abdominal pain, nausea, or vomiting. Afebrile. Vital signs stable. Patient had some mild nasal congestion and pharyngeal cobblestoning otherwise her exam was unremarkable. Rapid strep test was negative. I discussed with the patient that based on the duration of her symptoms and her physical exam I suspect that her symptoms are related to some postnasal drip although I could not fully exclude mononucleosis. We discussed that mono was a viral infection and would not change her treatment plan therefore she is choosing to defer testing at this time. Recommending that she start using fluticasone nasal spray 2 sprays each nostril once daily to help with the postnasal drip as well as symptomatic treatment for her sore throat. She is to follow-up with her primary care provider in 3-5 days if symptoms do not improve. Anticipatory guidance and warning symptoms were reviewed with the patient. Verbalizes understanding and agrees with plan of care. - Differential Dx/Diagnosis Differential Diagnosis/HQI/PQRI: Mononucleosis, Pharyngitis, Tonsillitis, URI, Other - PND Provider Diagnosis: Pharyngitis, Postnasal drip Discharge - Sign-Out/Discharge Documenting (check all that apply): Patient Departure All imaging exams completed and their final reports reviewed: No Studies - Discharge Plan Condition: Stable Disposition: HOME Prescriptions: Fluticasone NASAL SPRAY 50MCG* [Flonase NASAL SPRAY 50MCG*] 2 spray BOTH NARES DAILY #1 btl Patient Education Materials: Pharyngitis (ED) Referrals: Sara Munguia MD [Primary Care Provider] - 3 Days Additional Instructions: Your rapid strep test in the clinic today was negative. I suspect that your symptoms may be related to some post-nasal drip although I cannot fully rule out mononucleosis. [place] is caused by a virus and does not respond to antibiotic therefore treatment is focused on treating the symptoms. Start fluticasone nasal spray 2 sprays each nostril once daily to help with the post-nasal drip. Drink plenty of fluids to avoid dehydration especially if you are running any fever. Use salt water gargles several times a day. Take over the counter acetaminophen (Tylenol) or ibuprofen (Advil, Motrin) according to directions as needed for pain or fever. You may also use Chloraseptic spray or Cepacol lonzenges according to directions which contain a numbing medication and can provide some temporary relief from your sore throat. Follow up with your primary care provider in 3-5 days if symptoms persist. Seek immediate medical attention in the emergency room if you have fever greater than 100.5 F despite taking acetaminophen or ibuprofen, are unable to swallow or develop drooling, are unable to open your mouth fully, are unable to eat or drink, have pain that is not relieved with over the counter pain medication, or have any difficulty breathing, or any worsening of symptoms. - Billing Disposition and Condition Condition: STABLE Disposition: Home
== END 2019-01-31 17:58 | disposition home or self-care (01) ==
LOC: UCEAST 16:41
DX: J02.9 Acute pharyngitis, unspecified (principal); R09.82 Postnasal drip; F31.9 Bipolar disorder, unspecified; Z87.891 Personal history of nicotine dependence
CPT/HCPCS: 87651; 99212; G0463

== ENCOUNTER 2019-04-04 18:00 | Emergency (ER) | payer OTHER ==
--- OUTSIDE RECORDS SUMMARY | 2019-04-04 18:07 | XMS REPORT | Continuity of Care Document ---
:1980 External Reference #:[id number] Author Name Sara Munguia M.D. Address [address] [place] [address] Care Team Providers Name Role Phone Sara Munguia M.D. - Family Medicine Care Team Information Customer Support Professional Unavailable Janett Longo - Internal Care Team Information Customer Support Professional Medicine Natalie Lamas MD - Dermatology Care Team Information Customer Support Professional Problems Active Problems Provider Date Bipolar disorder Sara Munguia M.D. Onset: 07/23/2014 Cutaneous lupus erythematosus Sara Munguia M.D. Onset: 07/23/2014 Primary fibromyalgia syndrome Sara Munguia M.D. Onset: 08/27/2014 Opioid dependence in remission Sara Munguia M.D. Onset: 09/05/2017 Note: suboxone Chronic alcoholism in remission Sara Munguia M.D. Onset: 09/05/2017 Anemia Sara Munguia M.D. Onset: 10/26/2017 Obesity Sara Munguia M.D. 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 Phentermine HCL 1 tab daily 30caps E66.9 Sara Munguia, 03/06/2019 30mg M.D. Capsules Buspirone HCL 1 tab by mouth 90tabs F31.9 Sara Munguia, 09/19/2017 15mg twice a day M.D. Tablets Clobetasol Propionate apply to scalp 118ml Sara Munguia, 05/30/2017 twice a day as M.D. 0.05% Lotion needed Suboxone 1 1/2 each day Unknown 8-2mg Film Vitamin B1 once daily Unknown 100mg Tablets Vitamin B-12 1 by mouth every Unknown 500mcg day Tablets Sub Melatonin 3 by mouth at Unknown 5mg Capsules night for sleep Lamictal 1 by mouth every Unknown 200mg Tablets day Multivitamin Adult 1 by mouth every Unknown day Tablets History Medications Phentermine HCL take 2 tablets 60caps E66.9 Sara Munguia, 12/28/2018 - 15mg daily. M.D. 03/06/2019 Capsules Medications Administered in Office Medication SIG Qnty Indications Ordering Provider Date TB Intradermal Test Sara Munguia M.D. 04/04/2017 Injection TB Intradermal Test Sara Munguia M.D. 03/10/2016 Injection Immunizations CPT Code Status Date Vaccine Lot # [id number] Given 03/17/2015 Influenza Vac, Quadrivalent, Slit Virus, Im [id number] Vital Signs Date Vital Result Comment 03/06/2019 11:11am BP Systolic 118 mmHg BP Diastolic 60 mmHg Heart Rate 90 /min Body Temperature 98.4 F Respiratory Rate 16 /min Height 62.25 inches 5'2.25" measured 03/06/19 Weight 187.50 lb BMI (Body Mass Index) 34.0 kg/m2 12/28/2018 6:42pm BP Systolic 106 mmHg BP Diastolic 70 mmHg Heart Rate 60 /min Body Temperature 97.9 F Respiratory Rate 12 /min Height 62.75 inches 5'2.75" Weight 193.00 lb BMI (Body Mass Index) 34.5 kg/m2 Results Test Date Facility Test Result H/L Range Note Laboratory test 01/31/2019 [facility] Rapid Strep Negative Negative 1 finding Molecular Comprehensive 09/27/2018 [facility]) Sodium 140 mEq/L 134-149 Metabolic Prof Potassium 4.4 mEq/L 3.6-5.5 Chloride 99 mEq/L 94-112 Carbon Dioxide 27 mEq/L 21-32 Glucose 102 mg/dL 70-105 BUN 11 mg/dL 6-26 Creatinine 0.7 mg/dL 0.6-1.4 BUN/Creat Ratio 15.7 CALC 8.0-36.0 Calcium 9.2 mg/dL 8.6-10.2 Total Protein 7.0 g/dL 6.4-8.3 Albumin 4.7 g/dL 3.8-5.5 Globulin 2.3 g/dL 2.0-4.8 A/G Ratio 2.0 CALC 0.6-2.3 Alk. Phosphatase 68 U/L 30-110 Alt (SGPT) 18 U/L 7-35 Ast (Sgot) 24 U/L 5-34 Total Bilirubin 0.4 mg/dL 0.2-1.3 GFR Non- >60 ml/min/1.73m^ >=60 GFR >60 ml/min/1.73m^ >=60 Laboratory test 09/27/2018 [facility](a) Amylase, Serum 66 U/L 20- 105 finding Direct Bilirubn 0.2 mg/dL 0.0-0.6 Indirect Bilirubin 0.20 mg/dL 0.10-1.00 Total And Direct 09/27/2018 [facility](a) Total Bilirubin 0.4 mg/dL 0.2-1.3 Bili CBC Electronic 09/27/2018 [facility] Medicine WBC 4.74 4.0-10.0 (Fma New) (607)- - RBC 4.27 3.93-6.0 Hemoglobin (Fma/CMC/CTX) 13.4 g/dL 12.0-17.0 Hematocrit ([facility]ma/CMC/CTX) 39.1 % 35.0-50.0 Mean Corpuscular Vol 91.6 fL 80-95 Mean Corpuscular Hemoglobin 31.4 pg 25.6-32.2 Mean Corpuscular Hemo Concen 34.3 g/dL 32.2-36.0 Platelets 261 10^3/ul 163-400 RDW-CV 11.4 Low 11.6-14.4 Mean Platelet Volume 9.7 fL 8.0-12.4 Absolute Neutrophils BLD 1.95 1.56-6.13 Absolute Lymphocytes 2.28 1.18-3.74 Absolute Monocytes BLD Auto 0.27 0.24-0.82 Absolute Eos Blood 0.23 0.04-0.54 Absolute Basophils 0.01 0.01-0.08 Neutrophil % 41.1 % 34.0-70.0 Lymph% 48.1 % 20.0-52.0 Monocytes % 5.7 % 5.0-12.0 Eos % 4.9 % 0.7-7.0 Basophil% 0.2 % 0-1.2 Laboratory test finding 09/27/2018 [facility] Lipase 24 U/L 14-72 [address] [place] [address] (419)- - 1 Manager Engine: [id number] 2 1 sst Procedures Date Code Description Status 09/01/2018 [id number] Mammogram Completed Medical Devices Description No Information Available Encounters Type Date Location Provider Dx Diagnosis Office Visit 12/28/2018 Main Office JUANY Fabian E66.9 Obesity, unspecified 6:15p R10.13 Epigastric pain Office Visit 09/27/2018 7:00p Main Office Orlin Meeks R10.816 Epigastric MD Luc abdominal tenderness Assessments Date Code Description Provider 03/06/2019 Z00.01 Encounter for general adult medical Sara Munguia M.D. examination with abnormal findings 03/06/2019 F10.21 Alcohol dependence, in remission Sara Munguia M.D. 03/06/2019 F11.21 Opioid dependence, in remission Sara Munguia M.D. 03/06/2019 E66.9 Obesity, unspecified Sara Munguia M.D. 03/06/2019 L93.1 Subacute cutaneous lupus erythematosus Sara Munguia M.D. 03/06/2019 F31.9 Bipolar disorder, unspecified Sara Munguia M.D. 03/06/2019 K21.9 Gastro-esophageal reflux disease without Sara Munguia M.D. esophagitis 12/28/2018 E66.9 Obesity, unspecified JUANY Fabian 12/28/2018 R10.13 Epigastric pain JUANY Fabian 09/27/2018 R10.816 Epigastric abdominal tenderness Orlin Calle MD Plan of Treatment 03/06/2019 - Sara Munguia M.D.Z00.01 Encounter for general adult medical examination with abnormal findingsNew Labs:CBC Electronic-[facility], Ordered: 03/06/19Com Metabolic-[facility], Ordered: 03/06/19Lipid Panel- [facility], Ordered: 03/06/19Ua - Non Micro ([facility]), Ordered: 03/06/19TS ( [facility]), Ordered: 03/06/19Comments:Encourage an active and healthy lifestyle with proper eating habits including fruits, vegetables, 6-8 glasses of water a day and monitoring portion size. Recommend 30 minutes of daily physical activityincluding walking, aerobic exercise, sports, yoga or dance. Any activity is better than no activity.Recommend routine eye and dental exams. Next physical is due in 1-2 years.F10.21 Alcohol dependence, in remissionComments:congratulations on remaining wtmhoY47.21 Opioid dependence, in qwjnkoasiH40.9 Obesity, unspecifiedNew Medication:Phentermine HCL 30 mg - 1 tab dailyNew Labs:CBC Electronic-[facility], Ordered: 03/06/19 Metabolic-[facility], Ordered: 03/06/19Lipid Panel-[facility], Ordered: 03/06/19TS ([facility]), Ordered: 03/06/19Hemoglobin A1c ([facility]), Ordered: 03/06/19Comments:Counseled on heart healthy diet such as Mediterranean diet. Eat protein and vegetables first then carbohydrates last. Get at least 150 minutes of moderate aerobic activity or 75 minutes of vigorous aerobic activity a week, or a combination of moderate and vigorous activity. General goal of 30 minutes of physical activity a day. continue phentermineFollow up: 3 moL93.1 Subacute cutaneous lupus [id number] Bipolar disorder, unspecifiedComments:increase to buspar 2x a dayK21.9 Gastro-esophageal reflux disease without esophagitisNew Medication:Omeprazole 40 mg - 1 by mouth every dayComments:The patient was instructed to call if symptoms worsened. has egd sched in OctAllComments:Medication Management Patient Understands medications she's taking? Yes No Are there Barriers to Adherence? Yes No Has the patient been asked about herbal supplements and therapies, and OTC meds? Yes No Functional Status Description No Information Available Mental Status Description No Information Available Referrals Refer to Reason for Referral Status Appt Date Danyelle Soliman PA-C epigastric pain jw Scheduled 01/31/[address] [place] [address] [phone]
--- OUTSIDE RECORDS SUMMARY | 2019-04-04 18:07 | XMS REPORT | Continuity of Care Document ---
:1980 External Reference #:[id number] Author Name Danyelle Soliman PA-C Address [address] [place], [place] [id number] Care Team Providers Name Role Phone Sara Munguia MD Care Team Information Professor Of Theology [phone] Problems Active Problems Provider Date Clostridium difficile infection Jarred Castle MD Onset: 04/05/2017 Note: She was seen in the [facility] ER Apr 06 for bloody diarrhea. She had not been on antibiotics prior to the onset of the diarrhea or finding c diff and has not been in the hospital or visiting a [place] [facility] [place] facility. Fibromyalgia Jarred Castle MD Onset: 10/28/2011 Note: Dr Longo; pain at various time including night; used ibuprofen since [facility]; then meloxicam 10/27/17 Chronic alcoholism in remission Jarred Castle MD Onset: 10/27/2008 Note: her first rehab was at [facility] in [facility] ([place] in [place]) put her in touch with [facility] Discoid lupus erythematosus Jarred Castle MD Onset: 10/28/2007 Bipolar II disorder Jarred Castle MD Onset: 10/27/2002 Epigastric pain Danyelle Soliman PA-C Onset: 01/31/2019 Social History Type Date Description Comments Sex Unknown ETOH Use Denies alcohol use history of alcohol abuse Tobacco Use Start: Unknown Patient has never smoked Smoking Status Reviewed: 01/31/19 Patient has never smoked Allergies, Adverse Reactions, Alerts Active Allergies Reaction Severity Comments Date Sertraline 09/28/2016 Medications Active Medications SIG Qnty Indications Ordering Provider Date Phentermine HCL Take 2 tablets 60caps E66.9 Tre Deras MD 12/28/2018 15mg daily. Capsules Meloxicam take 1-2 tablets 60tabs M25.511 Sara Courtney MD 10/26/2017 7.5mg by mouth every Tablets day as needed take with food Buspirone HCL 1 tab by mouth a 90tabs F31.9 Sara Courtney MD 09/19/2017 15mg day Tablets Clobetasol apply to scalp 118units Sara Courtney MD 05/30/2017 Propionate twice a day as 0.05% needed Lotion Lamictal take one by Unknown 200mg mouth daily Tablets Suboxone 1 1/2 each day Unknown 8-2mg Film Vitamin B1 once daily Unknown 100mg Tablets Vitamin B-12 1 by mouth every Unknown 500mcg day Tablets Melatonin 3 by mouth at Unknown 5mg night for sleep Capsules Immunizations Description No Information Available Vital Signs Date Vital Result Comment 01/31/2019 3:20pm Height 63 inches 5'3" Weight 190.00 lb BP Systolic 144 mmHg BP Diastolic 75 mmHg Heart Rate 81 /min BMI (Body Mass Index) 33.7 kg/m2 10/27/2017 8:35am Height 63 inches 5'3" Weight 170.00 lb BP Systolic 130 mmHg BP Diastolic 80 mmHg Heart Rate 78 /min BMI (Body Mass Index) 30.1 kg/m2 Results Test Date Facility Test Result H/L Range Note CBC Auto Diff 01/31/2019 [facility] White Blood Count 6.1 10^3/uL Normal 3.5- 10.8 Red Blood Count 4.25 10^6/uL Normal 3.70-4.87 Hemoglobin 13.0 g/dL Normal 12.0-16.0 Hematocrit 39 % Normal 35-47 Mean Corpuscular Volume 92 fL Normal 80-97 Mean Corpuscular Hemoglobin 31 pg Normal 27-31 Mean Corpuscular HGB Conc 33 g/dL Normal 31-36 Red Cell Distribution Width 13 % Normal 10-15 Platelet Count 301 10^3/uL Normal 150-450 Mean Platelet Volume 8.3 fL Normal 7.4-10.4 Abs Neutrophils 2.5 10^3/uL Normal 1.5-7.7 Abs Lymphocytes 2.7 10^3/uL Normal 1.0-4.8 Abs Monocytes 0.5 10^3/uL Normal 0-0.8 Abs Eosinophils 0.3 10^3/uL Normal 0-0.6 Abs Basophils 0.0 10^3/uL Normal 0-0.2 Abs Nucleated RBC 0.0 10^3/uL Granulocyte % 40.7 % Lymphocyte % 44.6 % Monocyte % 8.5 % Eosinophil % 5.6 % Basophil % 0.6 % Nucleated Red Blood Cells % 0.0 Comp Metabolic Panel 01/31/2019 [facility] Sodium 137 mmol/L Normal 135-145 Potassium 4.7 mmol/L Normal 3.5-5.0 Chloride 101 mmol/L Normal 101-111 Co2 Carbon Dioxide 28 mmol/L Normal 22-32 Anion Gap 8 mmol/L Normal 2-11 Glucose 80 mg/dL Normal 70-100 Blood Urea Nitrogen 11 mg/dL Normal 6-24 Creatinine 0.65 mg/dL Normal 0.51-0.95 BUN/Creatinine Ratio 16.9 Normal 8-20 Calcium 9.3 mg/dL Normal 8.6-10.3 Total Protein 7.0 g/dL Normal 6.4-8.9 Albumin 4.4 g/dL Normal 3.2-5.2 Globulin 2.6 g/dL Normal 2-4 Albumin/Globulin Ratio 1.7 Normal 1-3 Total Bilirubin 0.30 mg/dL Normal 0.2-1.0 Alkaline Phosphatase 66 U/L Normal 34-104 Alt 12 U/L Normal 7-52 Ast 21 U/L Normal 13-39 Egfr Non- 101.0 >60 Egfr 122.2 >60 1 Laboratory test finding 01/31/2019 [facility] Amylase 62 U/L Normal 29-103 2 Lipase 17 U/L Normal 11.0-82.0 3 Xray 10/21/2018 [facility] Radiology US, Gallbladder ([id number]) <pending> Lab Results 09/27/2018 N2N/CCD Import WBC 4.74 1 4-10 RBC 4.27 1 3.93-6 Hemoglobin (Fma/CMC/CTX) 13.4 g/dL 12-17 Hematocrit (Fma/CMC/CTX) 39.1 % 35-50 Mean Corpuscular Vol 91.6 fL 80-95 Mean Corpuscular Hemoglobin 31.4 pg 25.6-32.2 Mean Corpuscular Hemo Concen 34.3 g/dL 32.2-36 Platelets 261 10^3/uL 163-400 RDW-CV 11.4 1 Low 11.6-14.4 Mean Platelet Volume 9.7 fL 8-12.4 Absolute Neutrophils BLD 1.95 1 1.56-6.13 Absolute Lymphocytes 2.28 1 1.18-3.74 Absolute Monocytes BLD Auto 0.27 1 0.24-0.82 Absolute Eos Blood 0.23 1 0.04-0.54 Absolute Basophils 0.01 1 0.01-0.08 Neutrophil % 41.1 % 34-70 Lymph% 48.1 % 20-52 Monocytes % 5.7 % 5-12 Eos % 4.9 % 0.7-7 Basophil% 0.2 % 0-1.2 1 Because ethnic data is not always readily [...] 15-29 5 Kidney failure <15 (or dialysis) 2 [id number] 3 [id number] Procedures Description No Information Available Medical Devices Description No Information Available Encounters Description No Information Available Assessments Date Code Description Provider 01/31/2019 R10.13 Epigastric pain Danyelle Soliman PA-C Plan of Treatment Future Appointment(s):04/20/2019 12:30 pm - Vincent Small DO at [facility]01/31/2019 - JUANY Salvador-CR10.13 Epigastric pain Functional Status Description No Information Available Mental Status Description No Information Available Referrals Description No Information Available
[2019-04-04 18:19] VITALS: BP 142/91
--- NOTE | 2019-04-04 18:56 | UC ---
Skin Complaint HPI - HPI Summary HPI Summary: STUNG BY A BEE TO HER LEFT LATERAL KNEE YESTERDAY AFTERNOON. HAD SOME MILD IRRITATION BUT GOT MUCH WORSE TODAY. HAS SWELLING, REDNESS AND PAIN. TOOK RAYO AND MOTRIN WITHOUT MUCH IMPROVEMENT. DENIES RESPIRATORY DISTRESS. NO TONGUE OR LIP SWELLING. - History of Current Complaint Chief Complaint: UCSkin Time Seen by Provider: 04/04/19 18:23 Stated Complaint: BEE STING FROM YESTERDAY Hx Obtained From: Patient Hx Last Menstrual Period: one week ago Onset/Duration: Sudden Onset, Lasting Hours, Still Present Timing: Constant Onset Severity: Moderate Current Severity: Moderate Pain Intensity: 8 Pain Scale Used: 0-10 Numeric Character: Pruritus, Pain, Redness Aggravating Factor(s): Touch Alleviating Factor(s): Nothing Associated Signs & Symptoms: Positive: Tenderness. Negative: Fever, Chills, Wheezing, Chest Pain, Throat Tightening Related History: Insect Bite/Sting - Allergy/Home Medications Allergies/Adverse Reactions: Allergies Allergy/AdvReac Type Severity Reaction Status Date / Time No Known Allergies Allergy Verified 04/04/19 18:19 PMH/Surg Hx/FS Hx/Imm Hx - Additional Past Medical History Additional PMH: SEASONAL ALLERGIES Psychological History: Anxiety, Bipolar Disorder Other Psychological History: OCD - Surgical History Surgical History: Yes Surgery Procedure, Year, and Place: BREAST REDUCTION 2002, [facility] . GASTRIC BYPASS 2003, ". C SECTION 2011, [place]. C SECTION 2013 [facility]. tonsilectomy. carpal tunnel surgery, [facility] 2013, left 2018 - Family History Known Family History: Positive: Hypertension, Diabetes - Social History Alcohol Use: None Alcohol Amount: detox Substance Use Type: None Substance Use Comment - Amount & Last Used: oxy Smoking Status (MU): Former Smoker Type: Cigarettes Amount Used/How Often: 6-7 cig/day Have You Smoked in the Last Year: Yes When Did the Patient Quit Smoking/Using Tobacco: 02/01/2017 Household Exposure Type: Cigarettes - Immunization History Most Recent Influenza Vaccination: decl Most Recent Tetanus Shot: 2014 Most Recent Pneumonia Vaccination: unkn Review of Systems All Other Systems Reviewed And Are Negative: Yes Constitutional: Positive: Negative Skin: Positive: Other - BEE STING LEFT LEG Respiratory: Positive: Negative Cardiovascular: Positive: Negative Gastrointestinal: Positive: Negative Physical Exam Triage Information Reviewed: Yes Appearance: Well-Appearing, No Pain Distress, Well-Nourished Vital Signs: Initial Vital Signs Temp 98.6 F 04/04/19 18:13 Pulse 68 04/04/19 18:13 Resp 17 04/04/19 18:13 BP 142/91 04/04/19 18:13 Pulse Ox 100 04/04/19 18:13 Vital Signs Reviewed: Yes Eyes: Positive: Conjunctiva Clear ENT: Positive: Hearing grossly normal Neck: Positive: Supple Respiratory: Positive: No respiratory distress, No accessory muscle use Cardiovascular: Positive: Pulses Normal Abdomen Description: Positive: Soft Musculoskeletal: Positive: No Edema Neurological: Positive: Alert Psychological: Positive: Age Appropriate Behavior Skin: Positive: Other - 11CM DIAMETER AREA OF ERYTHEMA, INDURATION, TENDERNESS LEFT LATERAL KNEE WITH CENTRALLY LOCATED PUNCTUM. Course/Dx - Course Course Of Treatment: SYMPTOMS RIGHT NOW MORE CONSISTENT WITH LOCAL ALLERGIC REACTION TO BEE STING. ADVISED COLD COMPRESSES, ANTIHISTAMINES, TOPICAL STEROIDS AND SHORT BURST OF PREDNISONE. IF SYMPTOMS ARE NOT IMPROVING WILL CONSIDER ANTIBIOTICS. PATIENT WILL CALL ME WITH ANY CONCERNS ABOUT THE COURSE OF HER CONDITION. - Diagnoses Provider Diagnosis: Local reaction to bee sting Discharge ED - Sign-Out/Discharge Documenting (check all that apply): Patient Departure All imaging exams completed and their final reports reviewed: No Studies - Discharge Plan Condition: Stable Disposition: HOME Prescriptions: predniSONE TAB* [Deltasone TAB*] 50 mg PO DAILY #5 tab Triamcinolone 0.1% CREAM(NF) [Kenalog Cream 0.1%(NF)] 1 applic TOPICAL TID PRN # 1 tube PRN Reason: Itching Patient Education Materials: Insect Bite or Sting (ED) Forms: *Work Release Referrals: Sara Munguia MD [Primary Care Provider] - If Needed Additional Instructions: YOU APPEAR TO BE EXPERIENCING A LOCALIZED ALLERGIC REACTION TO THE BEE STING. NO INDICATION OF INFECTION AT PRESENT. TAKE PREDNISONE DAILY PRESCRIBED AVOID HEAT AND HOT WATER TAKE OTC ANTIHISTAMINE DAILY (CLARITIN (LORATADINE), ZYRTEC (CETIRIZINE) OR RAYO (FEXOFENADINE) IN THE MORNING, 25-50MG BENADRYL AT NIGHT) DO NOT SCRATCH KEEP COOL, CLEAN AND DRY USE TOPICAL STEROID SPARINGLY 2-3 TIMES DAILY. KEEP AWAY FROM MUCOUS MEMBRANES. CALL ME IN [place] TOMORROW AFTER 5PM OR HERE IN [place] ON TUESDAY AFTER 2:30PM IF YOU ARE NOT IMPROVING WITH THIS TREATMENT. GO TO THE ED WITHOUT FAIL IF YOU DEVELOP ANY RESPIRATORY INVOLVEMENT, TONGUE/ LIP SWELLING, FEVER, NAUSEA/VOMITING OR ANY OTHER CONCERNING SYMPTOMS. - Billing Disposition and Condition Condition: STABLE Disposition: Home
== END 2019-04-04 19:03 | disposition home or self-care (01) ==
LOC: UCEAST 18:00
DX: T63.441A Toxic effect of venom of bees, accidental (unintentional), initial encounter (principal); Z87.891 Personal history of nicotine dependence; Y92.9 Unspecified place or not applicable

== ENCOUNTER → 2019-04-20 10:44 | Day surgery (SDC) | payer OTHER ==
[~2019-04-20 10:44] MED LIST changes: -Acetaminophen IV 1GM/100ML * 10 MG/ML VIAL IVPB ONE; -Buffered Lidocaine 0.9% SYRIN* 5 ML/SYR SYRINGE INTRADERM ONE; +Buffered Lidocaine 1% SYRIN* 1 ML/SYRINGE INTRADERM ONE; -Bupivacaine 0.25% SDV* 30 ML ONE; -Dexamethasone IV* 4 MG/ML 1 ML (4 MG) IV SLOW PU ONE; -Ketorolac INJ* 30 MG/ML 1 ML VIAL ONE; +Lactated Ringers 1000 ML Bag* 1,000 ML IV SCH; +Lidocaine 2% PF * 5 ML VIAL ONE; +Midazolam* 1 MG/ML 10 ML VIAL (10 MG) ONE; -Midazolam* 1 MG/ML 2 ML VIAL (2 MG) ONE; +Ondansetron INJ* 2 MG/ML VIAL IV PRN; +Ondansetron INJ* 2 MG/ML VIAL ONE; -Propofol* 10 MG/ML 20 ML BTL IV PUSH ONE; +Propofol* 10 MG/ML 20 ML BTL ONE; +fentaNYL* 50 MCG/ML 2 ML VIAL (100 MCG VIAL) ONE
[2019-04-20 14:34] VITALS: BP 156/102
--- NOTE | 2019-04-21 21:25 | PRO ---
CC: Dr. Sara Munguia * ESOPHAGOGASTRODUODENOSCOPY REPORT: DATE OF PROCEDURE: 04/20/19 - [facility] PRIMARY CARE PHYSICIAN: Dr. Sara Munguia. INDICATION FOR PROCEDURE: Abdominal pain. PROCEDURE PERFORMED: Complete esophagogastroduodenoscopy with biopsies. MEDICATIONS GIVEN: Please see Anesthesia record. DESCRIPTION OF PROCEDURE: After the EGD procedure including the risks, benefits , and alternatives with the risks not limited to perforation, surgery, missed lesions, and/or were explained to the patient, written informed consent was obtained, IV medication was given, and a bite-block was placed between the teeth. The adult Olympus gastroscope was then inserted into the patient's oropharynx into the tubular esophagus. The tubular esophagus had 1 cm variability potentially indicating reflux. This was biopsied. The scope was advanced through the lower esophageal sphincter into the gastric pouch. This was about 39 to 34 cm in length for a total pouch size of 5 cm. It was normal in terms of size and absence of inflammation. I did take a biopsy to rule out H. pylori. The scope was then advanced through the efferent small bowel, which was normal in appearance. Remainder of the small bowel and the anastomosis was normal with absence of anastomotic ulceration. The scope was then removed from the patient. She tolerated the procedure well. She returned to the recovery room in stable condition. IMPRESSION: 1. Complete esophagogastroduodenoscopy with biopsies. 2. Mild gastroesophageal junction variability, biopsied to rule out reflux. 3. Otherwise normal gastric bypass anatomy. Gastric pouch size 39 to 34 cm, biopsied for H. pylori testing. RECOMMENDATIONS: We will plan on a PPI trial and she can follow up with JUANY Jaime, in the future as needed. [id number]/[facility] #: [id number] [facility]
== END | disposition home or self-care (01) ==
LOC: OR 10:44
PROVIDERS: ATTEND Internal Medicine Gastroenterology
DX: R10.13 Epigastric pain (principal); Z98.84 Bariatric surgery status; R01.1 Cardiac murmur, unspecified; M79.7 Fibromyalgia
CPT/HCPCS: 81025; 87077; 88305; J1100; J2250; J2405; J2704; J3010

== ENCOUNTER 2019-08-13 09:44 | Day surgery (SDC) | payer OTHER ==
[~2019-08-13 09:44] MED LIST changes: +Dexamethasone IV* 4 MG/ML 1 ML (4 MG) IV SLOW PU ONE; -Dexamethasone IV* 4 MG/ML 1 ML (4 MG) ONE; -Famotidine IV* 10 MG/ML 2 ML (20 mg) IV ONE; -Famotidine IV* 10 MG/ML 2 ML (20 mg) ONE; -KETAMINE HCL* 50 MG/ML 10 ML VIAL ONE; -Lidocaine 2% PF * 5 ML VIAL ONE; -Midazolam* 1 MG/ML 10 ML VIAL (10 MG) ONE; -Naloxone* 0.4 MG/ML 1 ML VIAL IV PRN; -Ondansetron INJ* 2 MG/ML VIAL IV PRN; -Ondansetron INJ* 2 MG/ML VIAL ONE; -Propofol* 10 MG/ML 20 ML BTL ONE; -fentaNYL* 50 MCG/ML 2 ML VIAL (100 MCG VIAL) ONE
[2019-08-13] MEDS ORDERED: Buffered Lidocaine 1% SYRIN* 1 ML/SYRINGE INTRADERM ONE (09:56)
[2019-08-13] MEDS ORDERED: Dexamethasone IV* 4 MG/ML 1 ML (4 MG) ONE (09:56)
[2019-08-13] MEDS ORDERED: Bupivacaine 0.25% SDV* 30 ML ONE (10:12)
[2019-08-13] MEDS ORDERED: Lidocaine 1% w EPI 1:100,000* MDV 20 ML VIAL ONE (10:12)
[2019-08-13] MEDS ORDERED: KETAMINE HCL* 50 MG/ML 10 ML VIAL ONE (10:17)
[2019-08-13] MEDS ORDERED: fentaNYL* 50 MCG/ML 2 ML VIAL (100 MCG VIAL) ONE (10:17)
[2019-08-13] MEDS ORDERED: Midazolam* 1 MG/ML 5 ML VIAL (5 MG) ONE (10:18)
[2019-08-13] MEDS ORDERED: Ketorolac INJ* 30 MG/ML 1 ML VIAL ONE (11:15)
[2019-08-13] MEDS ORDERED: Propofol* 10 MG/ML 20 ML BTL ONE (11:15)
[2019-08-13] MEDS ORDERED: Lidocaine 2% PF * 5 ML VIAL ONE (11:15)
[2019-08-13] MEDS ORDERED: Labetalol IV* 5 MG/ML 20 ML VIAL ONE (11:15)
[2019-08-13 12:11] VITALS: BP 127/97
--- NOTE | 2019-08-13 21:05 | OP ---
DATE OF OPERATION: 08/13/19 - [facility] DATE OF : 76 SURGEON: Esteban Bonds MD BREAD DOUGH MIXER: JUANY Eng ANESTHESIOLOGIST: Dr. Partida. ANESTHESIA: Local MAC. PRE-OP DIAGNOSES: 1. Right trigger thumb. 2. Right ring trigger finger. POST-OP DIAGNOSES: 1. Right trigger thumb. 2. Right ring trigger finger. OPERATIVE PROCEDURE: 1. Right thumb trigger finger release. 2. Right ring trigger finger release. INDICATIONS: Rodney has trigger fingers; they are severe and have returned after injections. We had talked about treatment options; she wanted to proceed with surgery. ESTIMATED BLOOD LOSS: 2 mL. COMPLICATIONS: None. FINDINGS: See above and below. DESCRIPTION OF PROCEDURE: Rodney was seen in the preoperative holding area. The correct side, site, and procedures were identified. We came back to the operating room. The arm was prepped and then numbed and then draped. A time- out was performed. I first made a 1 cm longitudinal incision over the ring finger A1 joselito. Full- thickness flaps were raised off the tendon sheath. Ragnell retractors were placed. A #15 blade was used to release the A1 joselito along the radial third longitudinally. Once I had completed the release proximally and distally, I irrigated out the wound and the skin was closed with 4-0 nylon suture. I then made a transverse 1 cm incision over the thumb MCP joint flexion crease. Dissection was carried down. Full-thickness flaps were raised off the tendon sheath. Ragnell retractors were placed. The A1 joselito was incised. The release was completed distally and proximally. Once everything was looking good there, I irrigated out the wound. The skin was closed with 4-0 nylon suture. Soft dressings were applied and she was taken to the recovery room in stable condition. [id number]/[facility] #: [id number] [facility]PITAL[facility]li
== END 2019-08-13 12:17 | disposition home or self-care (01) ==
LOC: OR 09:44
PROVIDERS: ATTEND Orthopaedic Surgery Hand Surgery
DX: M65.311 Trigger thumb, right thumb (principal); M65.341 Trigger finger, right ring finger; Z87.891 Personal history of nicotine dependence; F31.9 Bipolar disorder, unspecified
CPT/HCPCS: 81025; J1100; J1885; J2250; J2704; J3010; J3490

== ENCOUNTER 2019-10-27 11:00 | Emergency (ER) | payer OTHER ==
--- OUTSIDE RECORDS SUMMARY | 2019-10-27 12:28 | XMS REPORT ---
:1980 Author Organization [facility] Care Team Providers Name Role Phone EDITH CAPUTO Primary Care Physician Unavailable Allergies, Adverse Reactions, Alerts Allergy Code CodeSystem Reaction Severity Criticality Status Start Substance Date nkda Moderate Active Medications Medication Medication Medication Start Stop Route Dose Status Fill Code CodeSystem Date Date Instructions lamotrigine [id number] RxNorm 2018-0 oral 200 mg 1 active Take 1 tablet 5-08 tablet once a day once a for 30 day(s) day lamotrigine 19830811 RxNorm 2018- 2019- oral 150 mg completed for 30 2-27 05-08 tablet day(s) buspirone 824356 RxNorm oral 15 mg active for 30 3-01 tablet day(s) buprenorphine 2027256 RxNorm 2019-0 SL 12-[address] 1 film -naloxone 3-05 1 film strips under once a tongue once a day day for 28 day(s) buprenorphine 0095340 RxNorm 2020- SL 8-[address] 1 1/2 -naloxone 4-16 03-05 1/2 film film strips once a under tongue day once a day for 28 day(s) phentermine 560818 RxNorm 20190 oral 15 mg active for 30 2-04 capsule day(s) Problems Problem Name Code CodeSystem Alternate Alternate Start End Status Narrative Code CodeSystem Date Date Bipolar 28412592 SNOMED-CT Active affective 3-22 disorder, unspecified Relevant diagnostic tests/laboratory data Narrative No Information Procedures Procedure Code CodeSystem Target Date of Status Service Device Device Device Name Site Procedure Delivery Code Name UID Location SNOMED-CT () 2019-07-[address], [id number] SNOMED-CT () 2018-12-15 [facility] d [address], [id number] [id number] Psychotherap [id number] SNOMED-CT () 2019-05-24 complete Mental y, 45 04 d Health- minutes with [facility] patient [address], [id number] [id number] Psychotherap [id number] SNOMED-CT () 2019-08-30 complete Mental y, 45 04 d Health- minutes with [address], [id number] [id number] Psychotherap [id number] SNOMED-CT () 2019-03-29 complete Mental y, 45 04 d Health- minutes with [facility] patient [address], [id number] [id number] Psychotherap [id number] SNOMED-CT () 2019-03-14 complete Mental y, 45 04 d Health- minutes with [address], [id number] [id number] Psychotherap [id number] SNOMED-CT () 2019-04-25 complete Mental y, 45 04 d Health- minutes with [facility] patient [address], [id number] [id number] SNOMED-CT () 2019-04-30 complete Mental d Health- [address], [id number] Psychotherap [id number] SNOMED-CT () 2019-02-16 complete Mental y, 45 04 d Health- minutes with [address], [id number] Psychotherap [id number] SNOMED-CT () 2019-06-13 complete Mental y, 45 04 d Health- minutes with [address], [id number] Psychotherap [id number] SNOMED-CT () 2019-08-16 complete Mental y, 45 04 d Health- minutes with [address], [id number] [phone] Office or [id number] SNOMED-CT () 2018-10-17 complete Mental other 7 d Health- outpatient [facility] visit for [address], of an [place], established [id number] patient, [phone] which requires at least 2 of these 3 murrieta components: An expanded problem focused history; An expanded problem focused examination; Medical decision making of low Psychotherap [id number] SNOMED-CT () 2019-01-19 complete Mental y, 45 04 d Health- minutes with [facility] patient [address], [id number] [id number] Psychotherap [id number] SNOMED-CT () 2019-03-23 complete Mental y, 45 04 d Health- minutes with [facility] patient [address], [id number] [id number] Office or [id number] SNOMED-CT () 2018-11-08 complete Mental other 7 d Health- outpatient [facility] visit for [address] [id number] patient, [id number] which requires at least 2 of these 3 murrieta components: An expanded problem focused history; An expanded problem focused examination; Medical decision making of low Psychotherap [id number] SNOMED-CT () 2019-07-13 complete Mental y, 45 04 d Health- minutes with [facility] patient [address], [id number] [phone] Psychotherap [id number] SNOMED-CT () 2019-01-08 complete Mental y, 45 04 d Health- minutes with [facility] patient [address], [id number] [phone] Office or [id number] SNOMED-CT () 2019-04-17 complete Mental other 6 d Health- outpatient [facility] visit for [address] [id number] patient, [id number] which requires at least 2 of these 3 murrieta components: A problem focused history; A problem focused examination; Straightforw ernst medical decision making. Counselin Office or [id number] SNOMED-CT () 2019-07-13 complete Mental other 6 d Health- outpatient [facility] visit for [address], [facility] [id number] patient, [phone] which requires at least 2 of these 3 murrieta components: A problem focused history; A problem focused examination; Straightforw ernst medical decision making. Counselin Encounters/Encounter Diagnoses Encounter Encounter Diagnosis Diagnosis Name Diagnosis Date of Service Name Code Code CodeSystem Diagnosis Delivery Location Non-Billable 60959 [id number] Bipolar SNOMED-CT 2019-09-03 Behavioral affective Health disorder, Clinic , , unspecified , Vital Signs No Information Social History Element Description Description Start End Code CodeSystem AdditionalInfo Date Date SexAssignedAtBirth Female 1979-07 F AdministrativeGender 08-25 Hospital Discharge Instructions Reason For Referral Medical Equipment FDA Assessments
--- OUTSIDE RECORDS SUMMARY | 2019-10-27 12:28 | XMS REPORT | Continuity of Care Document ---
:1980 External Reference #:[id number] Author Name Esteban Bonds MD (transmitted by agent of provider Kiera Vaughn) Address [address] [place] [address] Care Team Providers Name Role Phone Pricila Mendez MD - Physical Care Team Information Steel Handler [phone] Medicine & Rehabilitation Sara Munguia MD - Family Care Team Information Steel Handler [phone] Medicine Problems Active Problems Provider Date Cobalamin deficiency Reuben Cordon M.D. Onset: 05/11/2010 Vitamin D deficiency Reuben Cordon M.D. Onset: 05/11/2010 Low back pain Reuben Cordon M.D. Onset: 05/11/2010 Multiple joint pain Reuben Cordon M.D. Onset: 05/11/2010 Discoid lupus erythematosus of eyelid Reuben Cordon M.D. Onset: 2009 Radial styloid tenosynovitis Esteban Bonds MD Onset: 11/02/2017 Localized, primary osteoarthritis of the Esteban Bonds MD Onset: 11/02/2017 shoulder region Disorder of shoulder Esteban Bonds MD Onset: 11/02/2017 Carpal tunnel syndrome of left wrist Esteban Bonds MD Onset: 11/02/2017 Snapping thumb syndrome Esteban Bonds MD Onset: 11/02/2017 Acquired trigger finger Esteban Bonds MD Onset: 11/02/2017 Lupus erythematosus Rayshawn Dougherty M.D. Onset: 06/11/2014 Myalgia & Myositis Unspecified Rayshawn Dougherty M.D. Onset: 06/11/2014 Social History Type Date Description Comments Sex Unknown ETOH Use Denies alcohol use Tobacco Use Start: Unknown End: Patient is a former smoker Unknown Smoking Status Reviewed: 08/28/19 Patient is a former smoker Exercise Type/Frequency Does not exercise Allergies, Adverse Reactions, Alerts Description No Known Drug Allergies Medications Active Medications SIG Qnty Indications Ordering Provider Date Ibuprofen as needed Unknown 200mg Capsules Tylenol 8 Hour Unknown Lamictal take 1 tablet in Unknown 100mg Tablets morning and 1 tablet at night Buspirone HCL 1 by mouth three Unknown 10mg times a day Tablets Trazodone HCL take 1 tablet by Unknown 100mg mouth at bedtime Tablets Abilify Unknown 5mg Tablets Suboxone Unknown 8-2mg Film Meloxicam take one tab twice Unknown 7.5mg Tablets daily as needed for pain, avoid other nsaids Omeprazole 1 by mouth every Unknown 40mg day Capsules DR Mcbride 12 Hour 1 by mouth every Unknown Allergy & Congestion day as needed seasonally 60-120mg Tablets ER 12HR Phentermine HCL Unknown 30mg Capsules Multivitamin Adult 1 by mouth every Unknown day Tablets Vitamin B-12 1 by mouth every Unknown Natural day 500mcg Tablets Vitamin D by mouth everyday Unknown 25mcg (1000 Ut) Tablets Medications Administered in Office Medication SIG Qnty Indications Ordering Provider Date Celestone 3 mg and 3mg Esteban Bonds MD 06/12/2019 Injection Celestone 3 mg and 3mg Esteban Bonds MD 06/12/2019 Injection Celestone 3 mg and 3mg Esteban Bonds MD 09/13/2018 Injection Celestone 3 mg and 3mg Esteban Bonds MD 06/23/2018 Injection Celestone 3 mg and 3mg Esteban Bonds MD 05/24/2018 Injection Depomedrol 40MG Marysol Lee M.D. 01/25/2018 Injection Depomedrol 40MG Marysol Lee M.D. 01/25/2018 Injection Celestone 3 mg and 3mg Esteban Bonds MD 12/28/2017 Injection Celestone 3 mg and 3mg Esteban Bonds MD 11/02/2017 Injection Celestone 3 mg and 3mg Esteban Bonds MD 11/02/2017 Injection B-12 Injection Reuben Cordon M.D. 05/11/2010 Injection B-12 Injection Nurse Visit [facility] 04/22/2010 Injection B-12 Injection Reuben Cordon M.D. 04/08/2010 Injection Immunizations CPT Code Status Date Vaccine Lot # [id number] Given 04/08/2010 Influenza Virus 3Yrs & Over [id number] Vital Signs Date Vital Result Comment 08/28/2019 9:44am Height 63 inches 5'3" Heart Rate 80 /min BP Systolic 140 mmHg BP Diastolic 80 mmHg Respiratory Rate 16 /min Body Temperature 98.2 F Pain Level 1 07/18/2019 9:04am Height 63 inches 5'3" Weight 188.00 lb Heart Rate 94 /min BP Systolic 130 mmHg BP Diastolic 92 mmHg Body Temperature 97.8 F Pain Level 0 O2 % BldC Oximetry 99 % BMI (Body Mass Index) 33.3 kg/m2 Results Description No Information Available Procedures Date Code Description Status 08/13/2019 98818 Trigger Finger Release Incision / Tendon Sheath Incision Completed 08/13/2019 65196 Trigger Finger Release Incision / Tendon Sheath Incision Completed 08/13/2019 15012 Trigger Finger Release Incision / Tendon Sheath Incision Completed 08/13/2019 20846 Trigger Finger Release Incision / Tendon Sheath Incision Completed 06/12/2019 90078 Inject Tendon Sheath Or Ligament Aponeurosis Eg Plantar Completed Fascia 06/12/2019 84097 Inject Tendon Sheath Or Ligament Aponeurosis Eg Plantar Completed Fascia Medical Devices Description No Information Available Encounters Type Date Location Provider Dx Diagnosis Office Visit 06/12/2019 [facility] Esteban Bonds M65.311 Trigger thumb, 9:00a at [place] right thumb M65.331 Trigger finger, right middle finger M65.341 Trigger finger, right ring finger Assessments Date Code Description Provider 08/28/2019 M65.311 Trigger thumb, right thumb Esteban Bonds MD 08/28/2019 M65.341 Trigger finger, right ring finger Esteban Bonds MD 08/28/2019 Z47.89 Encounter for other orthopedic aftercare Esteban Bonds MD 08/13/2019 M65.311 Trigger thumb, right thumb JUANY Eng 08/13/2019 M65.311 Trigger thumb, right thumb Esteban Bonds MD 08/13/2019 M65.341 Trigger finger, right ring finger JUANY Eng 08/13/2019 M65.341 Trigger finger, right ring finger Esteban Bonds MD 07/18/2019 M65.311 Trigger thumb, right thumb Esteban Bonds MD 07/18/2019 M65.331 Trigger finger, right middle finger Esteban Bonds MD 07/18/2019 M65.341 Trigger finger, right ring finger Esteban Bonds MD 06/12/2019 M65.311 Trigger thumb, right thumb Esteban Bonds MD 06/12/2019 M65.331 Trigger finger, right middle finger Esteban Bonds MD 06/12/2019 M65.341 Trigger finger, right ring finger Esteban Bonds MD Plan of Treatment Future Appointment(s):10/30/2019 3:30 pm - Esteban Bonds MD at [facility] at [place]/28/2019 - Esteban Bonds MDM65.311 Trigger thumb, right thumbFollow up:Follow up: 2 [id number] Trigger finger, right ring [id number] Encounter for other orthopedic aftercare Functional Status Description No Information Available Mental Status Description No Information Available Referrals Description No Information Available
--- OUTSIDE RECORDS SUMMARY | 2019-10-27 12:28 | XMS REPORT ---
:1980 Author Organization [facility] Care Team Providers Name Role Phone EDITH CAPUTO Primary Care Physician Unavailable Allergies, Adverse Reactions, Alerts Allergy Code CodeSystem Reaction Severity Criticality Status Start Substance Date nkda Moderate Active Medications Medication Medication Medication Start Stop Route Dose Status Fill Code CodeSystem Date Date Instructions buprenorphine 1781572 RxNorm 2018- SL 8-[address] 1 07/05 -naloxone 10-17 07-09 07/05 film film strips once a under tongue day once a day for 28 day(s) buspirone 828159 RxNorm oral 15 mg active for 30 3-01 tablet day(s) phentermine 782511 RxNorm oral 15 mg active for 30 2-04 capsule day(s) lamotrigine 19830811 RxNorm 2018- oral 150 mg completed for 30 2-27 05-08 tablet day(s) lamotrigine 19830812 RxNorm oral 200 mg 1 active Take 1 tablet 5-08 tablet once a day once a for 30 day(s) day Problems Problem Name Code CodeSystem Alternate Alternate Start End Status Narrative Code CodeSystem Date Date Bipolar 02996066 SNOMED-CT Active affective 3-22 disorder, unspecified Relevant diagnostic tests/laboratory data Narrative No Information Procedures Procedure Code CodeSystem Target Date of Status Service Device Device Device Name Site Procedure Delivery Code Name UID Location SNOMED-CT () 2018-12-15 complete Mental d Health- [address], [id number] Psychotherap 376069 SNOMED-CT () 2019-01-19 complete Mental y, 43 04 d [facility]- [facility] [address], [id number] [phone] Office or [id number] SNOMED-CT () 2019-04-17 complete Mental other 6 d Health- outpatient [facility] visit for [address], established [id number] patient, [id number] which requires at least 2 of these 3 murrieta components: A problem focused history; A problem focused examination; Straightforw ernst medical decision making. Counselin Psychotherap [id number] SNOMED-CT () 2019-05-24 complete Mental y, 45 04 d Health- minutes with [facility] patient [address], [id number] [id number] Psychotherap [id number] SNOMED-CT () 2019-06-13 complete Mental y, 45 04 d Health- minutes with [facility] patient [address], [id number] [id number] Psychotherap [id number] SNOMED-CT () 2019-07-13 complete Mental y, 45 04 d Health- minutes with [facility] patient [address], [id number] [phone] Psychotherap [id number] SNOMED-CT () 2019-02-16 complete Mental y, 45 04 d Health- minutes with [facility] patient [address], [id number] [id number] Office or [id number] SNOMED-CT () 2019-07-13 complete Mental other 6 d Health- outpatient [facility] visit for [address], established [id number] patient, [id number] which requires at least 2 of these 3 murrieta components: A problem focused history; A problem focused examination; Straightforw ernst medical decision making. Counselin Office or [id number] SNOMED-CT () 2018-11-08 complete Mental other 7 d Health- outpatient [facility] visit for [address], established [phone] patient, [id number] which requires at least 2 of these 3 murrieta components: An expanded problem focused history; An expanded problem focused examination; Medical decision making of low SNOMED-CT () 2019-07-27 complete Mental d Health- [facility] [address], [id number] [phone] SNOMED-CT () 2019-04-30 complete Mental d Health- [address], [id number] [phone] Office or [id number] SNOMED-CT () 2018-10-17 complete Mental other 7 d Health- outpatient [facility] visit for [address], [place], established [id number] patient, [phone] which requires at least 2 of these 3 murrieta components: An expanded problem focused history; An expanded problem focused examination; Medical decision making of low Psychotherap [id number] SNOMED-CT () 2019-03-14 complete Mental y, 45 04 d Health- minutes with [facility] patient [address], [id number] [phone] Psychotherap [id number] SNOMED-CT () 2019-03-29 complete Mental y, 45 04 d Health- minutes with [facility] patient [address], [id number] [phone] Psychotherap [id number] SNOMED-CT () 2019-03-23 complete Mental y, 45 04 d Health- minutes with [facility] patient [address], [id number] [id number] Psychotherap [id number] SNOMED-CT () 2019-08-16 complete Mental y, 45 04 d Health- minutes with [facility] patient [address], [id number] [phone] Psychotherap [id number] SNOMED-CT () 2019-01-08 complete Mental y, 45 04 d Health- minutes with [facility] patient [address], [id number] [phone] Psychotherap [id number] SNOMED-CT () 2019-04-25 complete Mental y, 45 04 d Health- minutes with [facility] patient [address], [id number] [phone] Encounters/Encounter Diagnoses Encounter Encounter Diagnosis Diagnosis Name Diagnosis Date of Service Name Code Code CodeSystem Diagnosis Delivery Location Non-Billable 56277 [id number] Bipolar SNOMED-CT 2019-08-16 Behavioral affective Health disorder, Clinic , , unspecified , Vital Signs No Information Social History Element Description Description Start End Code CodeSystem AdditionalInfo Date Date SexAssignedAtBirth Female 1979-07 F AdministrativeGender 08-25 Hospital Discharge Instructions Reason For Referral Medical Equipment FDA Assessments
[2019-10-27 12:31] VITALS: BP 124/78
--- NOTE | 2019-10-27 12:55 | UC ---
Ear Complaint HPI - HPI Summary HPI Summary: 39-year-old female presents with 4-5 day history of intermittent right ear pain. Describes the pain as sharp. Reports she has been also having some right upper dental pain. Was seen by her dentist yesterday who started her on a 10 day course of amoxicillin. Denies fever, chills, URI sypmtoms, ear drainage, hearing loss, tinnitus, vertigo, facial swelling, dysphagia, or trismus. - History of Current Complaint Chief Complaint: UCEar Stated Complaint: EAR PAIN Time Seen by Provider: 10/27/19 12:17 Hx Obtained From: Patient Hx Last Menstrual Period: 10/08/19 Pain Intensity: 3 - Allergies/Home Medications Allergies/Adverse Reactions: Allergies Allergy/AdvReac Type Severity Reaction Status Date / Time SEASONAL Allergy Runny Nose Uncoded 10/27/19 12:31 Home Medications: Home Medications lamoTRIgine TAB(*) [Lamictal TAB(*)] 150 mg PO QPM 02/25/16 [History Confirmed 10/27/19] Buprenorp/Nalox 8-2 MG FILM [Suboxone 8 mg-2 mg Sl Film] 12 mg SL BID 08/28/17 [ History Confirmed 10/27/19] Cholecalciferol (Vitamin D3) [Vitamin D3] 1,000 unit PO QAM 08/28/17 [History Confirmed 10/27/19] busPIRone TAB* [Buspar TAB *] 15 mg PO TID 12/08/17 [History Confirmed 10/27/19] Fexofenadine (NF) [Jany 180 (NF)] 1 tab PO QAM 08/24/18 [History Confirmed ] L.acidoph,Paracasei, B.lactis [Probiotic] 1 each PO BEDTIME 08/24/18 [History Confirmed 10/27/19] Multivitamin [Multivitamins] 1 cap PO QAM 08/24/18 [History Confirmed 10/27/19] Vitamin B12 TAB* 1 tab PO QAM 08/24/18 [History Confirmed 10/27/19] Fluticasone NASAL SPRAY 50MCG* [Flonase NASAL SPRAY 50MCG*] 2 spray BOTH NARES QAM PRN 04/13/19 [History Confirmed 10/27/19] Omeprazole 40 mg PO QPM 04/13/19 [History Confirmed 10/27/19] Ferrous Sulfate TAB* 325 mg PO .EVERY OTHER DAY 08/06/19 [History Confirmed ] Triamcinolone 0.1% CREAM(NF) [Kenalog Cream 0.1%(NF)] 1 applic TOPICAL ONCE PRN 08/06/19 [History Confirmed 10/27/19] Ibuprofen 600 mg PO Q6H PRN 08/13/19 [History Confirmed 10/27/19] Tylenol 650 mg Supp 650 mg PO Q6HR PRN 08/13/19 [History Confirmed 10/27/19] PMH/Surg Hx/FS Hx/Imm Hx - Additional Past Medical History Additional PMH: Seasonal allergies GI/ History: Gastroesophageal Reflux Psychological History: Depression - Surgical History Surgical History: Yes Surgery Procedure, Year, and Place: BREAST REDUCTION 2002, [facility] . GASTRIC BYPASS 2003, ". C SECTION 2011, [facility]. C SECTION 2012 [facility]. TONSILECTOMY. wrist/hand surgery. CARPAL TUNNEL SURGERY, BILATERAL 2012, RIGHT 2018 - Family History Known Family History: Positive: Hypertension, Diabetes - Social History Occupation: Employed Full-time Lives: With Family Alcohol Use: None Alcohol Amount: detox Substance Use Type: None Substance Use Comment - Amount & Last Used: oxy Smoking Status (MU): Former Smoker Type: Cigarettes Amount Used/How Often: 6-7 cig/day Have You Smoked in the Last Year: No When Did the Patient Quit Smoking/Using Tobacco: 2017 Household Exposure Type: Cigarettes - Immunization History Most Recent Influenza Vaccination: decl Most Recent Tetanus Shot: 2014 Most Recent Pneumonia Vaccination: unkn Review of Systems All Other Systems Reviewed And Are Negative: Yes Constitutional: Negative: Fever, Chills Eyes: Negative: Drainage, Eye Redness ENT: Positive: Ear Ache - See HPI. Negative: Sore Throat, Nasal Discharge, Sinus Congestion, Sinus Pain/Tenderness Respiratory: Negative: Cough Cardiovascular: Positive: Negative Gastrointestinal: Positive: Negative Genitourinary: Positive: Negative Musculoskeletal: Positive: Negative Neurological/Mental Status: Positive: Negative Is Patient Immunocompromised?: No Physical Exam - Summary Physical Exam Summary: GENERAL APPEARANCE: Well developed, well nourished, alert and cooperative, and appears to be in no acute distress. EYES: Conjunctiva clear. No drainage. EARS: External auditory canals and tympanic membranes clear, hearing grossly intact. NOSE: No nasal discharge. THROAT: Pharynx normal. Tonsils surgically absent. Uvula midline. NECK: Neck supple, non-tender without lymphadenopathy. CARDIAC: Normal S1 and S2. No S3, S4 or murmurs. Rhythm is regular. There is no peripheral edema, cyanosis or pallor. Extremities are warm and well perfused. Capillary refill is less than 2 seconds. Peripheral pulses intact. LUNGS: Clear to auscultation without rales, rhonchi, wheezing or diminished breath sounds. ABDOMEN: Positive bowel sounds. Soft, nondistended, nontender. No guarding or rebound. No masses or hepatosplenomegally. MUSKULOSKELETAL: ROM intact to all extremities. No joint erythema or tenderness. Normal muscular development. Normal gait. SKIN: Skin normal color, texture and turgor with no lesions or eruptions. Triage Information Reviewed: Yes Vital Signs: Initial Vital Signs Temp 99.9 F 10/27/19 12:25 Pulse 97 10/27/19 12:25 Resp 16 10/27/19 12:25 BP 124/78 10/27/19 12:25 Pulse Ox 99 10/27/19 12:25 Vital Signs Reviewed: Yes Ear Complaint Course/Dx - Course Course Of Treatment: 39-year-old female presents with 4-5 day history of intermittent right ear pain. Describes the pain as sharp. Reports she has been also having some right upper dental pain. Was seen by her dentist yesterday who started her on a 10 day course of amoxicillin. Denies fever, chills, URI sypmtoms, ear drainage, hearing loss, tinnitus, vertigo, facial swelling, dysphagia, or trismus. Afebrile. Vital signs stable. Patient's exam is overall unremarkable. Discussed with the patient that I suspect her pain is likely referred from the dental infection. Have encouraged her to continue to use pevb-ctl-aqzoxwz analgesics and to complete her course of amoxicillin as directed. She is to return here or follow up with primary care in 3 days if symptoms are not improving. Anticipatory guidance and warning symptoms were reviewed with the patient. Verbalizes understanding and agrees with plan of care. - Differential Dx/Diagnosis Differential Diagnosis/HQI/PQRI: Cerumen Impaction, Otitis Externa, Otitis Media , URI, Other - Dental pain, serous otitis Provider Diagnosis: Otalgia of right ear Discharge ED - Sign-Out/Discharge Documenting (check all that apply): Patient Departure All imaging exams completed and their final reports reviewed: No Studies - Discharge Plan Condition: Stable Disposition: HOME Patient Education Materials: Earache (ED) Referrals: Sara Munguia MD [Primary Care Provider] - 3 Days (If no improvement.) Additional Instructions: I didn't see any evidence of an ear infection at this time. I suspect that your symptoms may be some referred pain from the dental infection that you are being treated for. Continue taking your amoxicillin as directed. It is important that you complete the entire course even if feeling better. Continue using an cvgw-plt-pebpltn pain medication according to directions as needed for pain. Follow-up with your primary care provider in 3 days if symptoms are not improving. Seek immediate medical attention if you develop a fever greater than 100.5 F, have severe pain that is not managed with ezpr-mqm-hoejmnb pain medication, there is blood or drainage coming from the ear, you have any hearing loss, difficulty swallowing, you're unable to open or close your mouth, or have any worsening of symptoms. - Billing Disposition and Condition Condition: STABLE Disposition: Home - Attestation Statements Provider Attestation: I was available for consult. This patient was seen by the [facility]. The patient was not presented to , seen by or examined by -Mei Souza MD
== END 2019-10-27 13:05 | disposition home or self-care (01) ==
LOC: UCEAST 11:00
DX: H92.01 Otalgia, right ear (principal); K08.89 Other specified disorders of teeth and supporting structures; K21.9 Gastro-esophageal reflux disease without esophagitis; F32.9 Major depressive disorder, single episode, unspecified; Z79.899 Other long term (current) drug therapy; Z87.891 Personal history of nicotine dependence
CPT/HCPCS: 99211; G0463